=== PATIENT | female | born 1960 | race Caucasian/White ===

== ENCOUNTER 2020-06-05 17:43 | Inpatient (IN) | payer MEDICARE, OTHER ==
[~2020-06-05] VITALS: Ht 172.7 cm; Wt 122.5 kg
[~2020-06-05 17:43] MED LIST: LEVO25TA4 PO; METF500T16 PO
[2020-06-05] MEDS ORDERED: IV RINGERS,LACTATED 1000ML 1,000 ML IV ONE (18:15)
[2020-06-05] MEDS ORDERED: ONDANSETRON PF 4 MG/2 ML VIAL. IVP ONE (18:15)
[2020-06-05] MEDS ORDERED: HYDROmorphone 2 MG/ML VIAL IV ONE (18:15)
[2020-06-05 18:28] LABS: BASO % 1 % (0-3); EOS # 0.1 x10^3/uL (0.0-0.7); EOS % 5 % (0-3); HEMOGLOBIN 10.1 g/dL (12.0-15.5); LYMPH # 0.5 x10^3/uL (1.0-4.8); LYMPH % 26 % (24-48); MEAN CORPUSCULAR HEMOGLOBIN 23 pg (25-35); MEAN CORPUSCULAR HGB CONC 32 g/dL (31-37); MEAN CORPUSCULAR VOLUME 74 fL (79-100); MONO # 0.1 x10^3/uL (0.0-1.1); MONO % 7 % (0-9); NEUT # 1.2 x10^3/uL (1.8-7.7); NEUT % 61 % (31-73); PLATELET COUNT 46 x10^3/uL (140-400); RED BLOOD COUNT 4.34 x10^6/uL (3.50-5.40); RED CELL DISTRIBUTION WIDTH 19.5 % (11.5-14.5)
[2020-06-05 18:38] LABS: CALCIUM 8.5 mg/dL (8.5-10.1); CREATININE 1.2 mg/dL (0.6-1.0); GFR 45.8
[2020-06-05 18:43] LABS: ALBUMIN/GLOBULIN RATIO 0.5 (1.0-1.7); TOTAL BILIRUBIN 0.9 mg/dL (0.2-1.0)
[2020-06-05] MEDS ORDERED: IOHEXOL 300 MG/ML 100ML VIAL. IV ONE (19:00)
--- NOTE | 2020-06-05 19:12 | PHYS DOC ---
Past Medical History Past Medical History: Bipolar, Diabetes-Type II, Hypothyroid, Other Additional Past Medical Histor: MACDONALD; Chronic Anemia Past Surgical History: No Surgical History Additional Past Surgical Histo: TIPS Smoking Status: Never Smoker Alcohol Use: None General Adult EDM: Chief Complaint: VAGINAL PROBLEM HPI: HPI: The history was obtained from the patient. Patient is a 60-year-old female with PMH diabetes who presents with a chief complaint of groin discomfort. Patient states over the past 5 days she has had redness and swelling to her vulvar region. She stated 5 days ago she was seen in urgent care and prescribed nystatin powder and doxycycline for an infection. States the wound has not seemed to improve. He is unsure whether she has open wounds or drainage. She denies any vaginal discharge or bleeding. She denies any pain with bowel movement. She does note some burning sensation when she urinates. She states that she is a diabetic and uses metformin. She states her blood sugars are typically well controlled. She denies any fevers. She denies any syncope. Denies any trauma to the area. No other complaints. Review of Systems: Review of Systems: Constitutional: Denies fever or chills. [] Eyes: Denies change in visual acuity. [] HENT: Denies nasal congestion or sore throat. [] Respiratory: Denies cough or shortness of breath. [] Cardiovascular: Denies chest pain or edema. [] GI: Denies abdominal pain, nausea, vomiting, bloody stools or diarrhea. [] : Positive for dysuria and vulvar discomfort Musculoskeletal: Denies back pain or joint pain. [] Integument: Denies rash. [] Neurologic: Denies headache, focal weakness or sensory changes. [] Endocrine: Denies polyuria or polydipsia. [] Lymphatic: Denies swollen glands. [] Psychiatric: Denies depression or anxiety. [] Heart Score: Risk Factors: Risk Factors: DM, Current or recent (<one month) smoker, HTN, HLP, family history of CAD, obesity. Risk Scores: Score 0 - 3: 2.5% MACE over next 6 weeks - Discharge Home Score 4 - 6: 20.3% MACE over next 6 weeks - Admit for Clinical Observation Score 7 - 10: 72.7% MACE over next 6 weeks - Early Invasive Strategies Current Medications: Current Medications Medications (Trade) Dose Ordered Sig/Boyd Start Time Stop Time Status Last Admin Dose Admin Hydromorphone HCl (Dilaudid) 1 mg 1X ONCE 06/05/20 18:15 06/05/20 18:16 DC 06/05/20 18:26 1 MG Info (CONTRAST GIVEN -- Rx MONITORING) 1 each PRN DAILY PRN 06/05/20 19:15 06/07/20 19:14 Iohexol (Omnipaque 300 Mg/ml) 60 ml 1X ONCE 06/05/20 19:00 06/05/20 19:07 DC Ondansetron HCl (Zofran) 4 mg 1X ONCE 06/05/20 18:15 06/05/20 18:16 DC 06/05/20 18:25 4 MG Ringer's Solution 1,000 ml @ 2,000 mls/hr 1X ONCE 06/05/20 18:15 06/05/20 18:44 DC Allergies: Allergies: Allergies Coded Allergies Type Severity Reaction Last Updated Verified lorazepam Allergy Severe Rash 12/09/19 Yes risperidone Allergy Severe Unknown 12/09/19 Yes ziprasidone Allergy Severe Unknown 12/09/19 Yes chlorpromazine Allergy Intermediate Unknown 12/09/19 Yes morphine Allergy Intermediate Unknown 12/09/19 Yes Physical Exam: PE: Constitutional: Well developed, well nourished, no acute distress, non-toxic appearance. [] HENT: Normocephalic, atraumatic, bilateral external ears normal, oropharynx moist, no oral exudates, nose normal. [] Eyes: PERRLA, EOMI, conjunctiva normal, no discharge. [] Neck: Normal range of motion, no tenderness, supple, no stridor. [] Cardiovascular:Heart rate regular rhythm, no murmur [] Lungs & Thorax: Bilateral breath sounds clear to auscultation [] Abdomen: Soft, nontender, nonacute abdomen. No involuntary guarding or rigidity noted. No acute peritonitis. : Vulvar region with erythema and induration. Tender to palpation. Two 0.5 x 0.5 cm open wounds draining purulent material. Palpable fluctuance noted at the 4 o'clock position of the vulvar region. Not in the location of a Bartholin gland abscess however. Skin: Warm, dry, no erythema, no rash. [] Back: No tenderness, no CVA tenderness. [] Extremities: No tenderness, no cyanosis, no clubbing, ROM intact, no edema. [] Neurologic: Alert and oriented X 3, normal motor function, normal sensory function, no focal deficits noted. [] Psychologic: Affect normal, judgement normal, mood normal. [] Current Patient Data: Labs: Laboratory Tests Test 06/05/20 18:15 White Blood Count 2.0 x10^3/uL (4.0-11.0) L Red Blood Count 4.34 x10^6/uL (3.50-5.40) Hemoglobin 10.1 g/dL (12.0-15.5) L Hematocrit 32.0 % (36.0-47.0) L Mean Corpuscular Volume 74 fL (79-100) L Mean Corpuscular Hemoglobin 23 pg (25-35) L Mean Corpuscular Hemoglobin Concent 32 g/dL (31-37) Red Cell Distribution Width 19.5 % (11.5-14.5) H Platelet Count 46 x10^3/uL (140-400) L Neutrophils (%) (Auto) 61 % (31-73) Lymphocytes (%) (Auto) 26 % (24-48) Monocytes (%) (Auto) 7 % (0-9) Eosinophils (%) (Auto) 5 % (0-3) H Basophils (%) (Auto) 1 % (0-3) Neutrophils # (Auto) 1.2 x10^3/uL (1.8-7.7) L Lymphocytes # (Auto) 0.5 x10^3/uL (1.0-4.8) L Monocytes # (Auto) 0.1 x10^3/uL (0.0-1.1) Eosinophils # (Auto) 0.1 x10^3/uL (0.0-0.7) Basophils # (Auto) 0.0 x10^3/uL (0.0-0.2) Sodium Level 134 mmol/L (136-145) L Potassium Level 4.0 mmol/L (3.5-5.1) Chloride Level 102 mmol/L (98-107) Carbon Dioxide Level 27 mmol/L (21-32) Anion Gap 5 (6-14) L Blood Urea Nitrogen 15 mg/dL (7-20) Creatinine 1.2 mg/dL (0.6-1.0) H Estimated GFR (Cockcroft-Gault) 45.8 BUN/Creatinine Ratio 13 (6-20) Glucose Level 446 mg/dL (70-99) H Lactic Acid Level 2.3 mmol/L (0.4-2.0) H Calcium Level 8.5 mg/dL (8.5-10.1) Total Bilirubin 0.9 mg/dL (0.2-1.0) Aspartate Amino Transferase (AST) 25 U/L (15-37) Alanine Aminotransferase (ALT) 19 U/L (14-59) Alkaline Phosphatase 92 U/L (46-116) Total Protein 6.0 g/dL (6.4-8.2) L Albumin 2.0 g/dL (3.4-5.0) L Albumin/Globulin Ratio 0.5 (1.0-1.7) L Lipase 225 U/L (73-393) Laboratory Tests 06/05/20 18:15 Laboratory Tests 06/05/20 18:15 Vital Signs: Vital Signs Date Time Temp Pulse Resp B/P (MAP) Pulse Ox O2 Delivery O2 Flow Rate FiO2 06/05/20 19:00 12 70 Room Air 06/05/20 19:00 2.0 06/05/20 18:00 98.1 96 165/78 (107) 98.1 EKG: EKG: [] Radiology/Procedures: Radiology/Procedures: [facility] [address] [place] [address] IMAGING REPORT Signed PATIENT: JOO BOYER ACCOUNT: [id number] : 1960 LOCATION: ER AGE: 60 SEX: F EXAM STATUS: REG ER ORD. PHYSICIAN: NINO CROSS DO REASON: eval for perineal abscess vs. deep space infection. PROCEDURE: CT ABD PELV W/ IV CONTRST ONLY Exam: CT of abdomen and pelvis with contrast INDICATION: Evaluate for perineal abscess, deep space infection TECHNIQUE: Sequential axial images through the abdomen and pelvis obtained following the administration of 75 mL of Omni 300 IV contrast. Sagittal and coronal reformatted images were reconstructed from the axial data and reviewed. Comparisons: None FINDINGS: Heart size is normal. No pericardial effusion. Visualized lung bases are clear. No pleural effusion. Liver demonstrates postsurgical changes of TIPS procedure TIPS shunt is patent. Cirrhotic nodular morphology of the liver is noted. Spleen is enlarged. Pancreas gallbladder and adrenals are unremarkable. No perinephric inflammation or hydronephrosis. No renal or ureteral calculi are identified. Bladder is distended and appears thin-walled. Uterus is not enlarged. No abnormal adnexal mass. Large and small bowel are unremarkable. Appendix is nonidentified. No free intra-abdominal air or fluid. Abdominal aorta has a normal course and caliber. Partially calcified thrombus is noted in the splenic vein which is nonocclusive. No enlarged abdominal lymph nodes are identified. There is a small amount of air noted within the medial upper left thigh extending into the perineum with adjacent inflammatory changes. No focal fluid collection is identified. IMPRESSION: 1. Air and inflammatory changes seen in the left medial upper thigh. No focal fluid collection is identified. 2. Cirrhotic morphology of liver with TIPS changes. 3. Nonocclusive chronic appearing thrombus in the splenic vein. Exposure: One or more of the following in the visualized dose reduction techniques were utilized for this examination: 1. Automated exposure control 2. Adjustment of the MA and/or KV according to patient size 3. Use of iterative of reconstructive technique Electronically signed by: Hannah Molina MD (06/05/2020 7:42 PM) [id number] DICTATED and SIGNED BY: HANNAH MOLINA MD DATE: 06/05/201941 [] Course & Med Decision Making: Course & Med Decision Making Pertinent Labs and Imaging studies reviewed. (See chart for details) Patient is a 60-year-old female who presents with chief complaint of groin pain and rash. Rash appears consistent with cellulitis. She does have 2 small open draining wounds. CT abdomen pelvis does not reveal any signs of necrotizing fasciitis or drainable fluid collection. She was started on broad-spectrum antibiotics including vancomycin and Zosyn given she is failed outpatient treatment. Fluid resuscitation initiated. Pain well controlled. Patient's labs do reveal pancytopenia however this does appear consistent with her baseline. Patient will require hospitalization for further antibiotic treatment of her cellulitis. Dragon Disclaimer: Dragon Disclaimer: This electronic medical record was generated, in whole or in part, using a voice recognition dictation system. Departure Departure Impression: Primary Impression: Cellulitis, perineum Additional Impressions: Pancytopenia MACDONALD (nonalcoholic steatohepatitis) Disposition: 09 ADMITTED INPATIENT Condition: STABLE Referrals: NO PCP (PCP) Justicifation of Admission Dx: Justifications for Admission: Justification of Admission Dx: Yes Cellulitis: Cellulitis Attending Signature Attending Signature NINO CROSS DO Jun 05, 2020 19:12
[2020-06-05] MEDS ORDERED: CONTRAST GIVEN. MC PRN (19:15)
--- NOTE | 2020-06-05 19:45 | RAD ---
Exam: CT of abdomen and pelvis with contrast INDICATION: Evaluate for perineal abscess, deep space infection TECHNIQUE: Sequential axial images through the abdomen and pelvis obtained following the administration of 75 mL of Omni 300 IV contrast. Sagittal and coronal reformatted images were reconstructed from the axial data and reviewed. Comparisons: None FINDINGS: Heart size is normal. No pericardial effusion. Visualized lung bases are clear. No pleural effusion. Liver demonstrates postsurgical changes of TIPS procedure TIPS shunt is patent. Cirrhotic nodular morphology of the liver is noted. Spleen is enlarged. Pancreas gallbladder and adrenals are unremarkable. No perinephric inflammation or hydronephrosis. No renal or ureteral calculi are identified. Bladder is distended and appears thin-walled. Uterus is not enlarged. No abnormal adnexal mass. Large and small bowel are unremarkable. Appendix is nonidentified. No free intra-abdominal air or fluid. Abdominal aorta has a normal course and caliber. Partially calcified thrombus is noted in the splenic vein which is nonocclusive. No enlarged abdominal lymph nodes are identified. There is a small amount of air noted within the medial upper left thigh extending into the perineum with adjacent inflammatory changes. No focal fluid collection is identified. IMPRESSION: 1. Air and inflammatory changes seen in the left medial upper thigh. No focal fluid collection is identified. 2. Cirrhotic morphology of liver with TIPS changes. 3. Nonocclusive chronic appearing thrombus in the splenic vein. Exposure: One or more of the following in the visualized dose reduction techniques were utilized for this examination: 1. Automated exposure control 2. Adjustment of the MA and/or KV according to patient size 3. Use of iterative of reconstructive technique Electronically signed by: Hannah Winchester MD (06/05/2020 7:42 PM) [id number]
[2020-06-05 19:51] LABS: BILIRUBIN,URINE NEGATIVE (NEG); CLARITY,URINE CLEAR; COLOR,URINE YELLOW; NITRITE,URINE NEGATIVE (NEG); PH,URINE 6.5 (<5.0-8.0); PROTEIN,URINE 100 mg/dL (NEG-TRACE)
[2020-06-05] MEDS ORDERED: PIPERACILLIN/TAZOBACTAM 3.375 GM in IV NORMAL SALINE 50ML 50 ML IV ONE (20:00)
[2020-06-05 20:03] LABS: BACTERIA,URINE FEW /HPF (0-FEW); SQUAMOUS EPITHELIAL CELL,UR OCC /LPF
[2020-06-05] MEDS ORDERED: VANCOMYCIN 2 GM in IV NORMAL SALINE 500ML BAG 500 ML IV ONE (20:30)
[2020-06-05] MEDS ORDERED: ONDANSETRON PF 4 MG/2 ML VIAL. IV PRN (20:30)
[2020-06-05] MEDS ORDERED: IV NORMAL SALINE 1000ML BAG 1,000 ML IV ONE (20:30)
[2020-06-05] MEDS: MORPHINE SULFATE 4 MG/ML VIAL. IV PRN (22:31)
[2020-06-05 22:45] VITALS: BP 159/79
[2020-06-06] MEDS: IV NORMAL SALINE 1000ML BAG 1,000 ML IV SCH ×2 (00:59→15:03)
[2020-06-06] MEDS ORDERED: DEXTROSE 50% 25 GM / 50ML DISP.SYRIN. IV PRN ×2 (01:00→13:30)
[2020-06-06] MEDS ORDERED: INSULIN LISPRO 300 UNITS/3 ML VIAL. SQ ONE (01:30)
[2020-06-06 02:16] VITALS: BP 124/59
[2020-06-06] MEDS: MORPHINE SULFATE 4 MG/ML VIAL. IV PRN ×4 (04:54→19:59)
[2020-06-06 05:14] VITALS: BP 157/90
[2020-06-06] MEDS: INSULIN LISPRO 300 UNITS/3 ML VIAL. SQ SCH ×3 (08:24→16:56)
[2020-06-06 09:00] VITALS: BP 133/68
[2020-06-06 10:25] LABS: BASO % 1 % (0-3); EOS # 0.1 x10^3/uL (0.0-0.7); EOS % 9 % (0-3); HEMATOCRIT 30.6 % (36.0-47.0); HEMOGLOBIN 9.5 g/dL (12.0-15.5); LYMPH # 0.4 x10^3/uL (1.0-4.8); LYMPH % 27 % (24-48); MEAN CORPUSCULAR HEMOGLOBIN 23 pg (25-35); MEAN CORPUSCULAR HGB CONC 31 g/dL (31-37); MEAN CORPUSCULAR VOLUME 75 fL (79-100); MONO # 0.1 x10^3/uL (0.0-1.1); MONO % 7 % (0-9); NEUT # 0.8 x10^3/uL (1.8-7.7); NEUT % 56 % (31-73); PLATELET COUNT 34 x10^3/uL (140-400); RED BLOOD COUNT 4.11 x10^6/uL (3.50-5.40); RED CELL DISTRIBUTION WIDTH 19.5 % (11.5-14.5)
[2020-06-06 10:30] LABS: WHITE BLOOD COUNT 1.4 x10^3/uL (4.0-11.0)
[2020-06-06 10:38] LABS: CALCIUM 7.9 mg/dL (8.5-10.1); CREATININE 1.1 mg/dL (0.6-1.0); GFR 50.7; POTASSIUM 4.3 mmol/L (3.5-5.1)
[2020-06-06 11:07] LABS: % BANDS 1 % (0-9); % BASOS 1 % (0-3); % EOS 9 % (0-5); % LYMPHS 30 % (24-48); % MONOS 6 % (0-10); % SEGS 53 % (35-66); PLT ESTIMATE DECREASED (ADEQUATE)
[2020-06-06 11:08] LABS: HYPOCHROMIA PRESENT; MICROCYTOSIS PRESENT
[2020-06-06] MEDS ORDERED: LACT20SO PO (11:27)
[2020-06-06] MEDS ORDERED: POLY119P19 PO (11:28)
[2020-06-06] MEDS ORDERED: MIDO10TA PO (11:29)
[2020-06-06] MEDS ORDERED: PANT40TA77 PO (11:29)
[2020-06-06] MEDS ORDERED: TOPI100T8 PO (11:30)
[2020-06-06] MEDS ORDERED: RIFA550T4 PO (11:34)
[2020-06-06] MEDS ORDERED: BUPR100T8 PO (11:34)
[2020-06-06] MEDS ORDERED: LIRA0.6P2 SQ (11:34)
[2020-06-06] MEDS ORDERED: OMEG1CAP50 PO (11:35)
[2020-06-06] MEDS ORDERED: TRAZ-118 PO (11:36)
--- NOTE | 2020-06-06 11:40 | PDOC1 ---
History and Physical Date of Admission Date of Admission DATE: 06/06/20 TIME: 11:40 Identification/Chief Complaint Chief Complaint seen in er with rash, neutropenia , 60-year-old female with PMH diabetes who presents with a chief complaint of groin discomfort. Patient states over the past 5 days she has had redness and swelling to her vulvar region. She stated 5 days ago she was seen in urgent care and prescribed nystatin powder and doxycycline for an infection. States the wound has not seemed to improve. He is unsure whether she has open wounds or drainage. She denies any vaginal discharge or bleeding. // denies any pain with bowel movement. She does note some burning sensation when she urinates. // is a diabetic and uses metformin. She states her blood sugars are typically well controlled. She denies any fevers. Rash appears consistent with cellulitis. Past Medical History Past Medical History Past Medical History Past Medical History: Bipolar, Diabetes-Type II, Hypothyroid, Other Additional Past Medical Histor: MACDONALD; Chronic Anemia Past Surgical History: No Surgical History Additional Past Surgical Histo: TIPS Smoking Status: Never Smoker Alcohol Use: None FHX OBESITY Hepatobiliary: Other Psych: Bipolar Endocrine: Diabetes, Hypothyroidism Past Surgical History Past Surgical History: Other Family History Family History: High Cholestrol, Hypertension Social History Smoke: No ALCOHOL: none Drugs: None Current Problem List Problem List Problems Medical Problems: (1) Cellulitis, perineum Status: Acute (2) MACDONALD (nonalcoholic steatohepatitis) Status: Acute Current Medications Current Medications Current Medications Ringer's Solution 1,000 ml @ 2,000 mls/hr 1X ONCE IV Last administered on 06/05/20at 19:00; Start 06/05/20 at 18:15; Stop 06/05/20 at 18:44; Status DC Hydromorphone HCl (Dilaudid) 1 mg 1X ONCE IV Last administered on 06/05/20at 18:26; Start 06/05/20 at 18:15; Stop 06/05/20 at 18:16; Status DC Ondansetron HCl (Zofran) 4 mg 1X ONCE IVP Last administered on 06/05/20at 18:25; Start 06/05/20 at 18:15; Stop 06/05/20 at 18:16; Status DC Iohexol (Omnipaque 300 Mg/ml) 60 ml 1X ONCE IV Last administered on 06/05/20at 19:15; Start 06/05/20 at 19:00; Stop 06/05/20 at 19:07; Status DC Info (CONTRAST GIVEN -- Rx MONITORING) 1 each PRN DAILY PRN MC SEE COMMENTS; Start 06/05/20 at 19:15; Stop 06/07/20 at 19:14 Vancomycin HCl 2 gm/Sodium Chloride 500 ml @ 250 mls/hr 1X ONCE IV Last administered on 06/05/20at 20:53; Start 06/05/20 at 20:30; Stop 06/05/20 at 22:29; Status DC Piperacillin Sod/ Tazobactam Sod 3.375 gm/Sodium Chloride 50 ml @ 100 mls/hr 1X ONCE IV Last administered on 06/05/20at 20:16; Start 06/05/20 at 20:00; Stop 06/05/20 at 20:29; Status DC Ondansetron HCl (Zofran) 4 mg PRN Q8HRS PRN IV NAUSEA/VOMITING; Start 06/05/20 at 20:30; Stop 06/06/20 at 20:29 Morphine Sulfate (Morphine Sulfate) 4 mg PRN Q2HR PRN IV PAIN Last administered on 06/06/20at 09:02; Start 06/05/20 at 20:30; Stop 06/06/20 at 20:29 Sodium Chloride 1,000 ml @ 1,500 mls/hr 1X ONCE IV Last administered on 06/05/20at 20:52; Start 06/05/20 at 20:30; Stop 06/05/20 at 21:09; Status DC Insulin Human Lispro (HumaLOG) 0-7 UNITS TIDWMEALS SQ Last administered on 06/06/20at 08:24; Start 06/06/20 at 08:00 Dextrose (Dextrose 50%-Water Syringe) 12.5 gm PRN Q15MIN PRN IV SEE COMMENTS; Start 06/06/20 at 01:00 Sodium Chloride 1,000 ml @ 70 mls/hr [id number] IV Last administered on 06/06/20at 00:59; Start 06/06/20 at 01:00 Insulin Human Lispro (HumaLOG) 4 units 1X ONCE SQ Last administered on 06/06/20at 01:49; Start 06/06/20 at 01:30; Stop 06/06/20 at 01:31; Status DC Acetaminophen/ Hydrocodone Bitart (Lortab 5/325) 1 tab PRN Q4HRS PRN PO PAIN; Start 06/06/20 at 11:00 Active Scripts Active Reported Trazodone Hcl 50 Mg Tablet 50 Mg PO DAILY Fish Oil 1,000 Mg Softgel ([place]-3 Fatty Acids/Fish Oil) 1 Each Capsule 1 Cap PO DAILY 30 Days Victoza 3-Perez (Liraglutide) 0.6 Mg/0.1 Ml Pen.injctr 1.2 Mg SQ DAILY Bupropion Hcl Sr (Bupropion Hcl) 100 Mg Tablet.er 100 Mg PO DAILY Xifaxan (Rifaximin) 550 Mg Tablet 1 Tab PO BID 10 Days Topiramate 100 Mg Tablet 100 Mg PO DAILY Pantoprazole Sodium (Pantoprazole Sodium) 40 Mg Tablet.dr 40 Mg PO BIDAC Midodrine Hcl 10 Mg Tablet 10 Mg PO TID Glycolax (Polyethylene Glycol 3350) 119 Gm Powder 17 Gm PO TID Take according to instructions on printed sheet Lactulose 20 Gm/30 Ml Solution 20 Gm PO TID Levothyroxine Sodium Unknown Strength Tablet 0.5 PO DAILY Metformin Hcl Unknown Strength Tablet 500 PO BIDWMEALS Allergies Allergies: Coded Allergies: lorazepam (Verified Allergy, Severe, Rash, 12/09/19) risperidone (Verified Allergy, Severe, Unknown, 12/09/19) Patient's card reads "Asymptomatic reaction" ziprasidone (Verified Allergy, Severe, Unknown, 12/09/19) Patient's card reads "Asymptomatic reaction" chlorpromazine (Verified Allergy, Intermediate, Unknown, 12/09/19) Patient's card reads "Asymptomatic reaction" morphine (Verified Allergy, Intermediate, Unknown, 12/09/19) Patient's card reads -"May have BiPolar Symptoms if taken for a ling time." ROS Review of System Constitutional: Denies fever or chills. [] Eyes: Denies change in visual acuity. [] HENT: Denies nasal congestion or sore throat. [] Respiratory: Denies cough or shortness of breath. [] Cardiovascular: Denies chest pain or edema. [] GI: Denies abdominal pain, nausea, vomiting, bloody stools or diarrhea. [] : Positive for dysuria and vulvar discomfort Musculoskeletal: Denies back pain or joint pain. [] Integument: Denies rash. [] Neurologic: Denies headache, focal weakness or sensory changes. [] Endocrine: Denies polyuria or polydipsia. [] Lymphatic: Denies swollen glands. [] Psychiatric: Denies depression or anxiety. [] 14 pt ros otherwise neg General: YES: Fatigue Physical Exam Physical Exam Constitutional: Well developed, well nourished, no acute distress, non-toxic appearance. [] HENT: Normocephalic, atraumatic, bilateral external ears normal, oropharynx moist, no oral exudates, nose normal. [] Eyes: PERRLA, EOMI, conjunctiva normal, no discharge. [] Neck: Normal range of motion, no tenderness, supple, no stridor. [] Cardiovascular:Heart rate regular rhythm, no murmur [] Lungs & Thorax: Bilateral breath sounds clear to auscultation [] Abdomen: Soft, nontender, nonacute abdomen. No involuntary guarding or rigidity noted. No acute peritonitis. : Vulvar region with erythema and induration. Tender to palpation. Two 0.5 x 0.5 cm open wounds draining purulent material. Palpable fluctuance noted at the 4 o'clock position of the vulvar region. Not in the location of a Bartholin gland abscess however. by ER PA Skin: Warm, dry, no erythema, no rash. [] Back: No tenderness, no CVA tenderness. [] Extremities: No tenderness, no cyanosis, no clubbing, ROM intact, no edema. [] Neurologic: Alert and oriented X 3, normal motor function, normal sensory function, no focal deficits noted. [] Psychologic: Affect normal, judgment normal, mood normal. [] General: Alert, Oriented X3, Cooperative HEENT: Atraumatic, EOMI, Mucous membr. moist/pink Lungs: Normal air movement Heart: RRR Breasts: Not examined Abdomen: Soft Rectal Exam: not examined Extremities: No cyanosis Neuro: Normal speech, Cranial nerves 3-12 NL Psych/Mental Status: Mental status NL, Mood NL Vitals Vitals Vital Signs Date Time Temp Pulse Resp B/P (MAP) Pulse Ox O2 Delivery O2 Flow Rate FiO2 06/06/20 09:02 2 Room Air 06/06/20 09:00 2.0 06/06/20 09:00 97.8 84 133/68 (89) 88 97.8 Labs Labs Laboratory Tests Test 06/05/20 18:15 06/05/20 19:39 06/05/20 21:45 06/06/20 01:04 White Blood Count 2.0 x10^3/uL (4.0-11.0) Red Blood Count 4.34 x10^6/uL (3.50-5.40) Hemoglobin 10.1 g/dL (12.0-15.5) Hematocrit 32.0 % (36.0-47.0) Mean Corpuscular Volume 74 fL (79-100) Mean Corpuscular Hemoglobin 23 pg (25-35) Mean Corpuscular Hemoglobin Concent 32 g/dL (31-37) Red Cell Distribution Width 19.5 % (11.5-14.5) Platelet Count 46 x10^3/uL (140-400) Neutrophils (%) (Auto) 61 % (31-73) Lymphocytes (%) (Auto) 26 % (24-48) Monocytes (%) (Auto) 7 % (0-9) Eosinophils (%) (Auto) 5 % (0-3) Basophils (%) (Auto) 1 % (0-3) Neutrophils # (Auto) 1.2 x10^3/uL (1.8-7.7) Lymphocytes # (Auto) 0.5 x10^3/uL (1.0-4.8) Monocytes # (Auto) 0.1 x10^3/uL (0.0-1.1) Eosinophils # (Auto) 0.1 x10^3/uL (0.0-0.7) Basophils # (Auto) 0.0 x10^3/uL (0.0-0.2) Sodium Level 134 mmol/L (136-145) Potassium Level 4.0 mmol/L (3.5-5.1) Chloride Level 102 mmol/L (98-107) Carbon Dioxide Level 27 mmol/L (21-32) Anion Gap 5 (6-14) Blood Urea Nitrogen 15 mg/dL (7-20) Creatinine 1.2 mg/dL (0.6-1.0) Estimated GFR (Cockcroft-Gault) 45.8 BUN/Creatinine Ratio 13 (6-20) Glucose Level 446 mg/dL (70-99) Lactic Acid Level 2.3 mmol/L (0.4-2.0) 1.3 mmol/L (0.4-2.0) Calcium Level 8.5 mg/dL (8.5-10.1) Total Bilirubin 0.9 mg/dL (0.2-1.0) Aspartate Amino Transf (AST/SGOT) 25 U/L (15-37) Alanine Aminotransferase (ALT/SGPT) 19 U/L (14-59) Alkaline Phosphatase 92 U/L (46-116) Total Protein 6.0 g/dL (6.4-8.2) Albumin 2.0 g/dL (3.4-5.0) Albumin/Globulin Ratio 0.5 (1.0-1.7) Lipase 225 U/L (73-393) Urine Collection Type Unknown Urine Color Yellow Urine Clarity Clear Urine pH 6.5 (<5.0-8.0) Urine Specific [place] >=1.030 (1.000-1.030) Urine Protein 100 mg/dL (NEG-TRACE) Urine Glucose (UA) >=1000 mg/dL (NEG) Urine Ketones (Stick) Negative mg/dL (NEG) Urine Blood Moderate (NEG) Urine Nitrite Negative (NEG) Urine Bilirubin Negative (NEG) Urine Urobilinogen Dipstick 1.0 mg/dL (0.2 mg/dL) Urine Leukocyte Esterase Negative (NEG) Urine RBC 6-10 /HPF (0-2) Urine WBC 1-4 /HPF (0-4) Urine Squamous Epithelial Cells Occ /LPF Urine Bacteria Few /HPF (0-FEW) Glucose (Fingerstick) 393 mg/dL (70-99) Test 06/06/20 08:11 06/06/20 09:25 Glucose (Fingerstick) 286 mg/dL (70-99) White Blood Count 1.4 x10^3/uL (4.0-11.0) Red Blood Count 4.11 x10^6/uL (3.50-5.40) Hemoglobin 9.5 g/dL (12.0-15.5) Hematocrit 30.6 % (36.0-47.0) Mean Corpuscular Volume 75 fL (79-100) Mean Corpuscular Hemoglobin 23 pg (25-35) Mean Corpuscular Hemoglobin Concent 31 g/dL (31-37) Red Cell Distribution Width 19.5 % (11.5-14.5) Platelet Count 34 x10^3/uL (140-400) Neutrophils (%) (Auto) 56 % (31-73) Lymphocytes (%) (Auto) 27 % (24-48) Monocytes (%) (Auto) 7 % (0-9) Eosinophils (%) (Auto) 9 % (0-3) Basophils (%) (Auto) 1 % (0-3) Neutrophils # (Auto) 0.8 x10^3/uL (1.8-7.7) Lymphocytes # (Auto) 0.4 x10^3/uL (1.0-4.8) Monocytes # (Auto) 0.1 x10^3/uL (0.0-1.1) Eosinophils # (Auto) 0.1 x10^3/uL (0.0-0.7) Basophils # (Auto) 0.0 x10^3/uL (0.0-0.2) Segmented Neutrophils % 53 % (35-66) Band Neutrophils % 1 % (0-9) Lymphocytes % 30 % (24-48) Monocytes % 6 % (0-10) Eosinophils % 9 % (0-5) Basophils % 1 % (0-3) Platelet Estimate Decreased (ADEQUATE) Hypochromasia Present Microcytosis Present Sodium Level 136 mmol/L (136-145) Potassium Level 4.3 mmol/L (3.5-5.1) Chloride Level 105 mmol/L (98-107) Carbon Dioxide Level 26 mmol/L (21-32) Anion Gap 5 (6-14) Blood Urea Nitrogen 12 mg/dL (7-20) Creatinine 1.1 mg/dL (0.6-1.0) Estimated GFR (Cockcroft-Gault) 50.7 Glucose Level 364 mg/dL (70-99) Calcium Level 7.9 mg/dL (8.5-10.1) Laboratory Tests Test 06/05/20 18:15 06/05/20 19:39 06/05/20 21:45 06/06/20 01:04 White Blood Count 2.0 x10^3/uL (4.0-11.0) Red Blood Count 4.34 x10^6/uL (3.50-5.40) Hemoglobin 10.1 g/dL (12.0-15.5) Hematocrit 32.0 % (36.0-47.0) Mean Corpuscular Volume 74 fL (79-100) Mean Corpuscular Hemoglobin 23 pg (25-35) Mean Corpuscular Hemoglobin Concent 32 g/dL (31-37) Red Cell Distribution Width 19.5 % (11.5-14.5) Platelet Count 46 x10^3/uL (140-400) Neutrophils (%) (Auto) 61 % (31-73) Lymphocytes (%) (Auto) 26 % (24-48) Monocytes (%) (Auto) 7 % (0-9) Eosinophils (%) (Auto) 5 % (0-3) Basophils (%) (Auto) 1 % (0-3) Neutrophils # (Auto) 1.2 x10^3/uL (1.8-7.7) Lymphocytes # (Auto) 0.5 x10^3/uL (1.0-4.8) Monocytes # (Auto) 0.1 x10^3/uL (0.0-1.1) Eosinophils # (Auto) 0.1 x10^3/uL (0.0-0.7) Basophils # (Auto) 0.0 x10^3/uL (0.0-0.2) Sodium Level 134 mmol/L (136-145) Potassium Level 4.0 mmol/L (3.5-5.1) Chloride Level 102 mmol/L (98-107) Carbon Dioxide Level 27 mmol/L (21-32) Anion Gap 5 (6-14) Blood Urea Nitrogen 15 mg/dL (7-20) Creatinine 1.2 mg/dL (0.6-1.0) Estimated GFR (Cockcroft-Gault) 45.8 BUN/Creatinine Ratio 13 (6-20) Glucose Level 446 mg/dL (70-99) Lactic Acid Level 2.3 mmol/L (0.4-2.0) 1.3 mmol/L (0.4-2.0) Calcium Level 8.5 mg/dL (8.5-10.1) Total Bilirubin 0.9 mg/dL (0.2-1.0) Aspartate Amino Transf (AST/SGOT) 25 U/L (15-37) Alanine Aminotransferase (ALT/SGPT) 19 U/L (14-59) Alkaline Phosphatase 92 U/L (46-116) Total Protein 6.0 g/dL (6.4-8.2) Albumin 2.0 g/dL (3.4-5.0) Albumin/Globulin Ratio 0.5 (1.0-1.7) Lipase 225 U/L (73-393) Urine Collection Type Unknown Urine Color Yellow Urine Clarity Clear Urine pH 6.5 (<5.0-8.0) Urine Specific [place] >=1.030 (1.000-1.030) Urine Protein 100 mg/dL (NEG-TRACE) Urine Glucose (UA) >=1000 mg/dL (NEG) Urine Ketones (Stick) Negative mg/dL (NEG) Urine Blood Moderate (NEG) Urine Nitrite Negative (NEG) Urine Bilirubin Negative (NEG) Urine Urobilinogen Dipstick 1.0 mg/dL (0.2 mg/dL) Urine Leukocyte Esterase Negative (NEG) Urine RBC 6-10 /HPF (0-2) Urine WBC 1-4 /HPF (0-4) Urine Squamous Epithelial Cells Occ /LPF Urine Bacteria Few /HPF (0-FEW) Glucose (Fingerstick) 393 mg/dL (70-99) Test 06/06/20 08:11 06/06/20 09:25 Glucose (Fingerstick) 286 mg/dL (70-99) White Blood Count 1.4 x10^3/uL (4.0-11.0) Red Blood Count 4.11 x10^6/uL (3.50-5.40) Hemoglobin 9.5 g/dL (12.0-15.5) Hematocrit 30.6 % (36.0-47.0) Mean Corpuscular Volume 75 fL (79-100) Mean Corpuscular Hemoglobin 23 pg (25-35) Mean Corpuscular Hemoglobin Concent 31 g/dL (31-37) Red Cell Distribution Width 19.5 % (11.5-14.5) Platelet Count 34 x10^3/uL (140-400) Neutrophils (%) (Auto) 56 % (31-73) Lymphocytes (%) (Auto) 27 % (24-48) Monocytes (%) (Auto) 7 % (0-9) Eosinophils (%) (Auto) 9 % (0-3) Basophils (%) (Auto) 1 % (0-3) Neutrophils # (Auto) 0.8 x10^3/uL (1.8-7.7) Lymphocytes # (Auto) 0.4 x10^3/uL (1.0-4.8) Monocytes # (Auto) 0.1 x10^3/uL (0.0-1.1) Eosinophils # (Auto) 0.1 x10^3/uL (0.0-0.7) Basophils # (Auto) 0.0 x10^3/uL (0.0-0.2) Segmented Neutrophils % 53 % (35-66) Band Neutrophils % 1 % (0-9) Lymphocytes % 30 % (24-48) Monocytes % 6 % (0-10) Eosinophils % 9 % (0-5) Basophils % 1 % (0-3) Platelet Estimate Decreased (ADEQUATE) Hypochromasia Present Microcytosis Present Sodium Level 136 mmol/L (136-145) Potassium Level 4.3 mmol/L (3.5-5.1) Chloride Level 105 mmol/L (98-107) Carbon Dioxide Level 26 mmol/L (21-32) Anion Gap 5 (6-14) Blood Urea Nitrogen 12 mg/dL (7-20) Creatinine 1.1 mg/dL (0.6-1.0) Estimated GFR (Cockcroft-Gault) 50.7 Glucose Level 364 mg/dL (70-99) Calcium Level 7.9 mg/dL (8.5-10.1) Images Images Exam: CT of abdomen and pelvis with contrast INDICATION: Evaluate for perineal abscess, deep space infection TECHNIQUE: Sequential axial images through the abdomen and pelvis obtained following the administration of 75 mL of Omni 300 IV contrast. Sagittal and coronal reformatted images were reconstructed from the axial data and reviewed. Comparisons: None FINDINGS: Heart size is normal. No pericardial effusion. Visualized lung bases are clear. No pleural effusion. Liver demonstrates postsurgical changes of TIPS procedure TIPS shunt is patent. Cirrhotic nodular morphology of the liver is noted. Spleen is enlarged. Pancreas gallbladder and adrenals are unremarkable. No perinephric inflammation or hydronephrosis. No renal or ureteral calculi are identified. Bladder is distended and appears thin-walled. Uterus is not enlarged. No abnormal adnexal mass. Large and small bowel are unremarkable. Appendix is nonidentified. No free intra-abdominal air or fluid. Abdominal aorta has a normal course and caliber. Partially calcified thrombus is noted in the splenic vein which is nonocclusive. No enlarged abdominal lymph nodes are identified. There is a small amount of air noted within the medial upper left thigh extending into the perineum with adjacent inflammatory changes. No focal fluid collection is identified. IMPRESSION: 1. Air and inflammatory changes seen in the left medial upper thigh. No focal fluid collection is identified. 2. Cirrhotic morphology of liver with TIPS changes. 3. Nonocclusive chronic appearing thrombus in the splenic vein. VTE Prophylaxis Ordered VTE Prophylaxis Devices: No VTE Pharmacological Prophylaxi: Contraindicated Assessment/Plan Assessment/Plan IMPRESSION: 1. Air and inflammatory changes seen in the left medial upper thigh. No focal fluid collection is identified.Rash appears consistent with cellulitis. 2. Cirrhotic morphology of liver with TIPS changes. 3. Nonocclusive chronic appearing thrombus in the splenic vein. 4. morbid obesity 5. pancytopenia, neutropenia, thrombocytopenia 6. MACDONALD 7. DIABETES 8. bipolar disorder plan admit consult hematology neutropenic diet reverse contact isolation ID consult retic count FE PANEL SCD'S , NO LOVENOX GI CONSULT SS INSULIN iv zosyn, vanc hold meds which may be cytotoxic, supress bone marrow, such as metformin move to telemetry or cvc D/W RN Metformin is a widely prescribed biguanide antidiabetic drug that has been implicated as a cause of hemolytic anemia in three previous case reports. We report a case of rapidly fatal hemolysis that was temporally associated with the initiation of metformin treatment for diabetes. Clinicians need to be aware of this rare but potentially serious side effect of metformin. Case presentation A 56-year-old man with type 2 diabetes mellitus was started on metformin to improve glycemic control. Shortly afterwards, he developed progressive fatigue, exertional dyspnea, cranberry-colored urine and jaundice. Laboratory studies showed severe hemolysis, with a drop in hemoglobin from 14.7 to 6.6 g/dl over 4 days, markedly elevated lactate dehydrogenase, bilirubin and reticulocyte counts, and a low haptoglobin level. A peripheral blood smear showed no schistocytes, and a direct Maryanne test was positive for anti-IgG and negative for anti-C3. Despite corticosteroid treatment and transfusion of packed red blood cells, the patient developed increasing dyspnea, hypotension, further decline in hemoglobin to 3.3 g/dl, and fatal cardiorespiratory arrest 12 hours after admission. Justifications for Admission Other Justification RAJ VILLARREAL MD Jun 06, 2020 11:40
[2020-06-06] MEDS: HYDROcodone/APAP 5/325MG 1 TAB TABLET PO PRN ×2 (12:26→16:53)
[2020-06-06 12:29] LABS: URIC ACID 3.4 mg/dL (2.6-6.0)
[2020-06-06] MEDS ORDERED: PIP/TAZO PER PHARMACY MC PRN (12:45)
[2020-06-06] MEDS: VANCOMYCIN PER PHARMACY MC PRN (12:50)
--- NOTE | 2020-06-06 12:53 | NUR ---
Pharmacy Vancomycin Dosing Note S:Consulted to monitor and dose vancomycin started 06/05/20. O:JOO BOYER is a 60 year old F with Cellulitis . Height: 5 feet, 8 inches Weight: 118.0 kg [place] Body Weight: 63.90 Adjusted Body Weight: 85.54 Dosing Weight: Actual Other Antibiotics: ZOSYN LABS: Last BUN: 12 Last Creatinine: 1.1 Creatinine Clearance: 70 mL/min Last WBC: 1.4 Last Procalcitonin: Tmax (past 24 hours): 98.1 Microbiology: - I/O: 2880/2 VOIDS Last dose given 06/06/20 at 2054 Vancomycin Dosing: Loading Dose: 2000 mg x1 Dosing Weight: Actual Target Trough: 10-20 A: Based on: weight and renal function P: 1. Begin Vancomycin 1750 mg IV q18h 2. Follow up Trough level on 06/07/20 at 0830 3. Pharmacy will continue to monitor, follow and adjust therapy as needed. Dagmar Hernández Bethanie, 06/06/20 [id number]
[2020-06-06] MEDS: MIDODRINE 5 MG TABLET PO SCH ×2 (14:30→18:00)
[2020-06-06 15:00] VITALS: BP 126/65
[2020-06-06] MEDS: LACTULOSE 20 GM/30 ML SOLUTION. PO SCH ×2 (15:01→19:58)
[2020-06-06] MEDS: rifAXIMin 550 MG TABLET PO SCH ×2 (15:01→19:58)
[2020-06-06] MEDS: LEVOTHYROXINE 50 MCG TABLET PO SCH (15:02)
[2020-06-06] MEDS: PIPERACILLIN/TAZOBACTAM 3.375 GM in IV NORMAL SALINE 50ML 50 ML IV SCH ×2 (15:02→18:40)
--- NOTE | 2020-06-06 15:33 | RAD ---
EXAM: CHEST 1 VIEW History: Hypoxia COMPARISON: 12/09/2019 TECHNIQUE: Single portable radiograph of the chest FINDINGS: The cardiac silhouette is unremarkable. The lungs are clear bilaterally. The costophrenic sulci are clear and well demarcated. IMPRESSION: No radiographic evidence of an acute cardiopulmonary process. Electronically signed by: Richy Rubi MD (06/06/2020 3:29 PM) [id number]
[2020-06-06] MEDS: VANCOMYCIN 1.75 GM in IV NORMAL SALINE 500ML BAG 500 ML IV SCH (16:13)
[2020-06-06] MEDS: PANTOPRAZOLE 40 MG TABLET.DR. PO SCH (16:14)
--- NOTE | 2020-06-06 18:19 | NUR ---
Report given to kim on 5N, pt transported per W/C to room 516, with all belongings and medications.
[2020-06-06 19:00] VITALS: BP 131/59
[2020-06-06 23:00] VITALS: BP 166/65
[2020-06-07] MEDS: PIPERACILLIN/TAZOBACTAM 3.375 GM in IV NORMAL SALINE 50ML 50 ML IV SCH ×5 (00:01→23:28)
[2020-06-07] MEDS: HYDROcodone/APAP 5/325MG 1 TAB TABLET PO PRN ×5 (00:02→23:33)
[2020-06-07] MEDS: MORPHINE SULFATE 2 MG/ML VIAL. IV PRN ×5 (01:27→19:23)
[2020-06-07 03:00] VITALS: BP 150/63
[2020-06-07] MEDS: IV NORMAL SALINE 1000ML BAG 1,000 ML IV SCH ×2 (04:19→20:45)
[2020-06-07] MEDS: LEVOTHYROXINE 50 MCG TABLET PO SCH (06:16)
[2020-06-07 06:44] LABS: BASO % 1 % (0-3); EOS # 0.1 x10^3/uL (0.0-0.7); EOS % 8 % (0-3); HEMATOCRIT 30.3 % (36.0-47.0); HEMOGLOBIN 9.4 g/dL (12.0-15.5); LYMPH # 0.5 x10^3/uL (1.0-4.8); LYMPH % 30 % (24-48); MEAN CORPUSCULAR HEMOGLOBIN 23 pg (25-35); MEAN CORPUSCULAR HGB CONC 31 g/dL (31-37); MEAN CORPUSCULAR VOLUME 75 fL (79-100); MONO # 0.1 x10^3/uL (0.0-1.1); MONO % 9 % (0-9); NEUT # 0.8 x10^3/uL (1.8-7.7); NEUT % 52 % (31-73); PLATELET COUNT 32 x10^3/uL (140-400); RED BLOOD COUNT 4.06 x10^6/uL (3.50-5.40); RED CELL DISTRIBUTION WIDTH 19.7 % (11.5-14.5)
[2020-06-07 06:57] LABS: WHITE BLOOD COUNT 1.5 x10^3/uL (4.0-11.0)
[2020-06-07 07:00] VITALS: BP 148/59
[2020-06-07] MEDS: MIDODRINE 5 MG TABLET PO SCH ×3 (07:00→17:33)
[2020-06-07 07:30] LABS: ALBUMIN/GLOBULIN RATIO 0.5 (1.0-1.7); CALCIUM 8.1 mg/dL (8.5-10.1); GFR 56.6; POTASSIUM 4.3 mmol/L (3.5-5.1); TOTAL PROTEIN 5.8 g/dL (6.4-8.2)
[2020-06-07] MEDS: PANTOPRAZOLE 40 MG TABLET.DR. PO SCH ×2 (08:20→17:41)
[2020-06-07] MEDS: OMEGA-3 FATTY ACIDS/FISH OIL 1,000 MG CAPSULE. PO SCH (08:20)
[2020-06-07] MEDS: LACTULOSE 20 GM/30 ML SOLUTION. PO SCH ×3 (08:20→20:45)
[2020-06-07] MEDS: rifAXIMin 550 MG TABLET PO SCH ×2 (08:20→20:45)
[2020-06-07] MEDS: INSULIN LISPRO 300 UNITS/3 ML VIAL. SQ SCH ×3 (08:23→17:48)
--- NOTE | 2020-06-07 09:16 | PDOC ---
[employer] PROGRESS NOTE Date of Service DOS: DATE: 06/07/20 TIME: 09:16 Chief Complaint Chief Complaint A/P: Cellulitis of groin and labia -ID consulted, vancomycin and Zosyn therapy for now. Topical antifungal. Sepsis -due to cellulitis of groin failing outpatient therapy Severe protein calorie malnutrition -likely secondary to cirrhosis, will consult dietitian Pancytopenia -noted previously, her anemia and thrombocytopenia can be explained with her cirrhosis, her leukopenia however is not clear in its etiology. Diabetes -will place on insulin therapy while inpatient. Hold metformin. MACDONALD -with cirrhosis status post TIPS. Bipolar disease -we will consult psychiatry for medication recommendations. Hypothyroidism -continue levothyroxine Morbid obesity -counseled on weight loss techniques History of Present Illness History of Present Illness Ms Ashraf is a 59-year-old female with a history of diabetes, MACDONALD with cirrhosis s/p TIPS, bipolar disease, hypothyroidism, anemia, thrombocytopenia, and morbid obesity admitted with rash, neutropenia who presents with a chief complaint of groin discomfort. Patient states over the past 5 days she has had redness and swelling to her vulvar region. She stated 5 days ago she was seen in urgent care and prescribed nystatin powder and doxycycline for an infection, but did not seem to improve. No vaginal discharge or bleeding and denies any pain with bowel movement. She does note some burning sensation when she urinates. Noted with pancytopenia WBC 1.5, platelets 32, Hb 9.4 albumin 2, glucose 281. Admitted for failure of outpatient antibiotic therapy for groin cellulitis on vancomycin and Zosyn. Afebrile. She is not had BM last day despite her lactulose dosing. States her pain is controlled with IV morphine. She does not feel her groin is improving. Vitals/I&O Vitals/I&O: Vital Signs Date Time Temp Pulse Resp B/P (MAP) Pulse Ox O2 Delivery O2 Flow Rate FiO2 06/07/20 07:58 Room Air 06/07/20 07:00 84 148/59 06/07/20 07:00 97.6 20 92 2.0 97.6 I & O 06/06/20 06/06/20 06/07/20 15:00 23:00 07:00 Intake Total 960 ml 2269 ml 100 ml Balance 960 ml 2269 ml 100 ml Physical Exam General: Alert, Oriented X3, Cooperative Lungs: Clear Abdomen: Soft Extremities: No cyanosis Labs Labs: Laboratory Tests Test 06/06/20 09:25 06/06/20 12:03 06/06/20 16:47 06/06/20 22:21 White Blood Count 1.4 x10^3/uL (4.0-11.0) Red Blood Count 4.13 x10^6/uL (3.50-5.70) Hemoglobin 9.5 g/dL (12.0-15.5) Hematocrit 30.6 % (36.0-47.0) Mean Corpuscular Volume 75 fL (79-100) Mean Corpuscular Hemoglobin 23 pg (25-35) Mean Corpuscular Hemoglobin Concent 31 g/dL (31-37) Red Cell Distribution Width 19.5 % (11.5-14.5) Platelet Count 34 x10^3/uL (140-400) Neutrophils (%) (Auto) 56 % (31-73) Lymphocytes (%) (Auto) 27 % (24-48) Monocytes (%) (Auto) 7 % (0-9) Eosinophils (%) (Auto) 9 % (0-3) Basophils (%) (Auto) 1 % (0-3) Neutrophils # (Auto) 0.8 x10^3/uL (1.8-7.7) Lymphocytes # (Auto) 0.4 x10^3/uL (1.0-4.8) Monocytes # (Auto) 0.1 x10^3/uL (0.0-1.1) Eosinophils # (Auto) 0.1 x10^3/uL (0.0-0.7) Basophils # (Auto) 0.0 x10^3/uL (0.0-0.2) Segmented Neutrophils % 53 % (35-66) Band Neutrophils % 1 % (0-9) Lymphocytes % 30 % (24-48) Monocytes % 6 % (0-10) Eosinophils % 9 % (0-5) Basophils % 1 % (0-3) Platelet Estimate Decreased (ADEQUATE) Hypochromasia Present Microcytosis Present Absolute Reticulocyte Count 0.133 x10^6/uL (0.020-0.120) Percent Reticulocyte Count 3.2 % (0.5-2.3) Immature Reticulocyte Fraction 0.37 (0.20-0.60) Sodium Level 136 mmol/L (136-145) Potassium Level 4.3 mmol/L (3.5-5.1) Chloride Level 105 mmol/L (98-107) Carbon Dioxide Level 26 mmol/L (21-32) Anion Gap 5 (6-14) Blood Urea Nitrogen 12 mg/dL (7-20) Creatinine 1.1 mg/dL (0.6-1.0) Estimated GFR (Cockcroft-Gault) 50.7 Glucose Level 364 mg/dL (70-99) Uric Acid 3.4 mg/dL (2.6-6.0) Calcium Level 7.9 mg/dL (8.5-10.1) Iron Level 24 ug/dL (50-170) Total Iron Binding Capacity 324 ug/dL (250-450) Iron Saturation 7 % (15-34) Lactate Dehydrogenase 265 U/L (81-234) Glucose (Fingerstick) 307 mg/dL (70-99) 259 mg/dL (70-99) 255 mg/dL (70-99) Test 06/07/20 05:30 06/07/20 07:45 White Blood Count 1.5 x10^3/uL (4.0-11.0) Red Blood Count 4.06 x10^6/uL (3.50-5.40) Hemoglobin 9.4 g/dL (12.0-15.5) Hematocrit 30.3 % (36.0-47.0) Mean Corpuscular Volume 75 fL (79-100) Mean Corpuscular Hemoglobin 23 pg (25-35) Mean Corpuscular Hemoglobin Concent 31 g/dL (31-37) Red Cell Distribution Width 19.7 % (11.5-14.5) Platelet Count 32 x10^3/uL (140-400) Neutrophils (%) (Auto) 52 % (31-73) Lymphocytes (%) (Auto) 30 % (24-48) Monocytes (%) (Auto) 9 % (0-9) Eosinophils (%) (Auto) 8 % (0-3) Basophils (%) (Auto) 1 % (0-3) Neutrophils # (Auto) 0.8 x10^3/uL (1.8-7.7) Lymphocytes # (Auto) 0.5 x10^3/uL (1.0-4.8) Monocytes # (Auto) 0.1 x10^3/uL (0.0-1.1) Eosinophils # (Auto) 0.1 x10^3/uL (0.0-0.7) Basophils # (Auto) 0.0 x10^3/uL (0.0-0.2) Sodium Level 138 mmol/L (136-145) Potassium Level 4.3 mmol/L (3.5-5.1) Chloride Level 106 mmol/L (98-107) Carbon Dioxide Level 28 mmol/L (21-32) Anion Gap 4 (6-14) Blood Urea Nitrogen 10 mg/dL (7-20) Creatinine 1.0 mg/dL (0.6-1.0) Estimated GFR (Cockcroft-Gault) 56.6 BUN/Creatinine Ratio 10 (6-20) Glucose Level 281 mg/dL (70-99) Calcium Level 8.1 mg/dL (8.5-10.1) Ferritin 16 ng/mL (8-252) Total Bilirubin 1.0 mg/dL (0.2-1.0) Aspartate Amino Transf (AST/SGOT) 30 U/L (15-37) Alanine Aminotransferase (ALT/SGPT) 17 U/L (14-59) Alkaline Phosphatase 79 U/L (46-116) Total Protein 5.8 g/dL (6.4-8.2) Albumin 2.0 g/dL (3.4-5.0) Albumin/Globulin Ratio 0.5 (1.0-1.7) Glucose (Fingerstick) 273 mg/dL (70-99) Assessment and Plan Assessmemt and Plan Problems Medical Problems: (1) Cellulitis, perineum Status: Acute (2) MACDONALD (nonalcoholic steatohepatitis) Status: Acute Comment Review of Relevant I have reviewed the following items tano (where applicable) has been applied. Medications: Current Medications Medications (Trade) Dose Ordered Sig/Boyd Route PRN Reason Start Time Stop Time Status Last Admin Dose Admin Acetaminophen/ Hydrocodone Bitart (Lortab 5/325) 1 tab PRN Q4HRS PRN PO PAIN 06/06/20 11:00 06/07/20 06:16 Vancomycin HCl (Vanco Per Pharmacy) 1 each PRN DAILY PRN MC SEE COMMENTS 06/06/20 12:45 06/06/20 12:50 Piperacillin Sod/ Tazobactam Sod 3.375 gm/Sodium Chloride 50 ml @ 100 mls/hr Q6HRS IV 06/06/20 13:30 06/07/20 06:15 Vancomycin HCl 1.75 gm/Sodium Chloride 500 ml @ 250 mls/hr Q18H IV 06/06/20 15:00 06/06/20 16:13 Vancomycin HCl (Vancomycin Trough Level) 1 each 1X ONCE MC 06/07/20 08:30 06/07/20 08:31 DC 06/07/20 08:20 Lactulose (Lactulose) 20 gm TID PO 06/06/20 14:00 06/07/20 08:20 Fish Oil (Fish Oil) 1,000 mg DAILY PO 06/07/20 09:00 06/07/20 08:20 Pantoprazole Sodium (Protonix) 40 mg BIDAC PO 06/06/20 16:30 06/07/20 08:20 Rifaximin (Xifaxan) 550 mg BID PO 06/06/20 15:00 06/07/20 08:20 Levothyroxine Sodium (Synthroid) 50 mcg DAILY06 PO 06/06/20 15:00 06/07/20 06:16 Insulin Human Lispro (HumaLOG) 0-5 UNITS TIDWMEALS SQ 06/06/20 17:00 06/07/20 08:23 Morphine Sulfate (Morphine Sulfate) 2 mg PRN Q2HR PRN IV SEVERE PAIN 7-10 06/07/20 00:30 06/07/20 04:19 Justifications for Admission Other Justification MERARI CARDOSO MD Jun 07, 2020 09:16
[2020-06-07 09:51] LABS: VANC TR 10.9 mcg/mL (10.0-20.0)
--- NOTE | 2020-06-07 10:31 | NUR ---
SW following. Discussed with RN, pt from home with , independent, currently on o2 which is pt does not use at home - RN attempting to titrate. Pt on IV Vanc/ zosyn. Lupus screen today. RN advised no SW needs at this time, SW will continue to follow.
[2020-06-07 11:00] VITALS: BP 133/59
[2020-06-07] MEDS ORDERED: POLYETHYLENE GLYCOL 3350 17 GM PACKET. PO PRN (11:00)
[2020-06-07] MEDS: PSYLLIUM HUSK (SUGAR FREE) 1 PKT PACKET PO SCH (11:13)
[2020-06-07] MEDS: VANCOMYCIN 1.75 GM in IV NORMAL SALINE 500ML BAG 500 ML IV SCH (11:14)
--- NOTE | 2020-06-07 11:51 | PDOC2 ---
GI CONSULT Date of Service: DATE: 06/07/20 TIME: 11:51 Reason For Consult: MACDONALD w/ pancytopenia HPI: HPI: Pleasant 60 y/o female admitted w/ cellulitis of groin/labia and sepsis. H/o MACDONALD cirrhosis and varices s/p TIPS. Follows w/ Dr. Brandt at . Recalls low platelet count in the past w/ past hematology eval at . Outside records (from [facility]) show pancytopenia. H/o hepatic encephalopathy. Tells me stooling w/ lactulose TID. Also takes Xifaxan BID. Denies reflux/heartburn, dysphagia, n/v, abd pain, diarrhea, constipation, hematochezia, melena, hematemesis, or change in appetite. Has intentionally lost a few pounds. Reports normal EGD @ earlier this year. EGD w/ Dr. Mendoza in 04/2014 w/ grade 2 varices, esophagus ulcer related to previous banding, and duodenal ulcer. On PPI QD. Colonoscopy w/ Dr. Escobedo in 07/2015 w/ polyp. No GB or pancreas history. Denies NSAIDs and home pain medications. PMH: PMH: cirrhosis (MACDONALD) w/ esophageal and gastric varices, portosystemic encephalopathy, PVT, anemia, PUD, nephrolithiasis, Jordan's palsy, DM, hypothyroidism, bipolar, HTN, HLD, UTI, back pain TIPS, tonsillectomy FH: Family History: No pertinent hx (no GI cancers) Social History: Smoke: No ALCOHOL: none Drugs: None ROS: GEN: Denies fevers, chills, sweats HEENT: Denies blurred vision, sore throat CV: Denies chest pain RESP: Denies shortness of air, cough GI: Per HPI : Denies hematuria, dysuria ENDO: weight loss NEURO: Denies confusion, dizziness MSK: Denies weakness, joint pain/swelling SKIN: rash Vitals: Vitals: Vital Signs Date Time Temp Pulse Resp B/P (MAP) Pulse Ox O2 Delivery O2 Flow Rate FiO2 06/07/20 11:22 Nasal Cannula 1.0 06/07/20 11:00 97.7 78 20 133/59 (83) 98 97.7 Labs: Labs: Laboratory Tests Test 06/06/20 12:03 06/06/20 16:47 06/06/20 22:21 06/07/20 05:30 Glucose (Fingerstick) 307 mg/dL (70-99) 259 mg/dL (70-99) 255 mg/dL (70-99) White Blood Count 1.5 x10^3/uL (4.0-11.0) Red Blood Count 4.06 x10^6/uL (3.50-5.40) Hemoglobin 9.4 g/dL (12.0-15.5) Hematocrit 30.3 % (36.0-47.0) Mean Corpuscular Volume 75 fL (79-100) Mean Corpuscular Hemoglobin 23 pg (25-35) Mean Corpuscular Hemoglobin Concent 31 g/dL (31-37) Red Cell Distribution Width 19.7 % (11.5-14.5) Platelet Count 32 x10^3/uL (140-400) Neutrophils (%) (Auto) 52 % (31-73) Lymphocytes (%) (Auto) 30 % (24-48) Monocytes (%) (Auto) 9 % (0-9) Eosinophils (%) (Auto) 8 % (0-3) Basophils (%) (Auto) 1 % (0-3) Neutrophils # (Auto) 0.8 x10^3/uL (1.8-7.7) Lymphocytes # (Auto) 0.5 x10^3/uL (1.0-4.8) Monocytes # (Auto) 0.1 x10^3/uL (0.0-1.1) Eosinophils # (Auto) 0.1 x10^3/uL (0.0-0.7) Basophils # (Auto) 0.0 x10^3/uL (0.0-0.2) Sodium Level 138 mmol/L (136-145) Potassium Level 4.3 mmol/L (3.5-5.1) Chloride Level 106 mmol/L (98-107) Carbon Dioxide Level 28 mmol/L (21-32) Anion Gap 4 (6-14) Blood Urea Nitrogen 10 mg/dL (7-20) Creatinine 1.0 mg/dL (0.6-1.0) Estimated GFR (Cockcroft-Gault) 56.6 BUN/Creatinine Ratio 10 (6-20) Glucose Level 281 mg/dL (70-99) Calcium Level 8.1 mg/dL (8.5-10.1) Ferritin 16 ng/mL (8-252) Total Bilirubin 1.0 mg/dL (0.2-1.0) Aspartate Amino Transf (AST/SGOT) 30 U/L (15-37) Alanine Aminotransferase (ALT/SGPT) 17 U/L (14-59) Alkaline Phosphatase 79 U/L (46-116) Total Protein 5.8 g/dL (6.4-8.2) Albumin 2.0 g/dL (3.4-5.0) Albumin/Globulin Ratio 0.5 (1.0-1.7) Test 06/07/20 07:45 06/07/20 09:05 Glucose (Fingerstick) 273 mg/dL (70-99) Vancomycin Level Trough 10.9 mcg/mL (10.0-20.0) Vancomycin Last Dose Date 06/06/2020 Vancomycin Last Dose Time 1500 GRAM STAIN Final Final GRAM NEGATIVE RODS:RARE GRAM POSITIVE COCCI:FEW SQUAMOUS EPI CELL:RARE PMN (WBCs):FEW Unless otherwise specified, Testing Performed by: [address] [address] For Inquires, the Physician may contact the Microbiology department at [phone] ANAEROBIC-AEROBIC CULTURE PENDING BLOOD CULTURE Preliminary NO GROWTH AFTER 1 DAY Allergies: Coded Allergies: lorazepam (Verified Allergy, Severe, Rash, 12/09/19) risperidone (Verified Allergy, Severe, 06/07/20) Patient's card reads "Asymptomatic reaction" ziprasidone (Verified Allergy, Severe, 06/07/20) Patient's card reads "Asymptomatic reaction" chlorpromazine (Verified Allergy, Intermediate, 06/07/20) Patient's card reads "Asymptomatic reaction" morphine (Verified Allergy, Intermediate, 06/07/20) Patient's card reads -"May have BiPolar Symptoms if taken for a ling time." Medications: Current Medications Medications (Trade) Dose Ordered Sig/Boyd Route PRN Reason Start Time Stop Time Status Last Admin Dose Admin Vancomycin HCl (Vanco Per Pharmacy) 1 each PRN DAILY PRN MC SEE COMMENTS 06/06/20 12:45 06/06/20 12:50 Piperacillin Sod/ Tazobactam Sod 3.375 gm/Sodium Chloride 50 ml @ 100 mls/hr Q6HRS IV 06/06/20 13:30 06/07/20 06:15 Vancomycin HCl 1.75 gm/Sodium Chloride 500 ml @ 250 mls/hr Q18H IV 06/06/20 15:00 06/07/20 11:14 Vancomycin HCl (Vancomycin Trough Level) 1 each 1X ONCE MC 06/07/20 08:30 06/07/20 08:31 DC 06/07/20 08:20 Lactulose (Lactulose) 20 gm TID PO 06/06/20 14:00 06/07/20 08:20 Fish Oil (Fish Oil) 1,000 mg DAILY PO 06/07/20 09:00 06/07/20 08:20 Pantoprazole Sodium (Protonix) 40 mg BIDAC PO 06/06/20 16:30 06/07/20 08:20 Rifaximin (Xifaxan) 550 mg BID PO 06/06/20 15:00 06/07/20 08:20 Levothyroxine Sodium (Synthroid) 50 mcg DAILY06 PO 06/06/20 15:00 06/07/20 06:16 Insulin Human Lispro (HumaLOG) 0-5 UNITS TIDWMEALS SQ 06/06/20 17:00 06/07/20 08:23 Morphine Sulfate (Morphine Sulfate) 2 mg PRN Q2HR PRN IV SEVERE PAIN 7-10 06/07/20 00:30 06/07/20 09:16 Psyllium Hydrophilic Mucilloid (Metamucil Fiber Packet) 1 pkt DAILY PO 06/07/20 11:00 06/07/20 11:13 Imaging: Imaging: CXR IMPRESSION: No radiographic evidence of an acute cardiopulmonary process. CT A/P IMPRESSION: 1. Air and inflammatory changes seen in the left medial upper thigh. No focal fluid collection is identified. 2. Cirrhotic morphology of liver with TIPS changes. 3. Nonocclusive chronic appearing thrombus in the splenic vein. PE: GEN: NAD HEENT: Atraumatic, PERRL LUNGS: CTAB HEART: RRR ABD: NABS, S/ND/NT EXTREMITY: No edema SKIN: deferred NEURO/PSYCH: A & O 3 A/P: A/P: Cellulitis MACDONALD cirrhosis s/p TIPS, h/o varices and encephalopathy - follows at Pancytopenia, iron deficiency - Hgb and plt stable, WBC lower than in the past (here) H/o DU - on PPI; reports normal EGD at earlier this year CRC screen, h/o polyp - UTD -- Continue PPI, lactulose, Xifaxan - note also has Metamucil, Miralax. Will review w/ Dr. Hernandez. BOBBY MURILLO Jun 07, 2020 11:51
[2020-06-07] MEDS: VANCOMYCIN PER PHARMACY MC PRN (11:53)
--- NOTE | 2020-06-07 12:09 | NUR ---
Pharmacy Vancomycin Dosing Note S: Consulted to monitor and dose vancomycin started 06/05/20. O: JOO BOYER is a 60 year old F with Cellulitis, . Other Antibiotics: ZOSYN, MYCAMINE LABS: Last BUN: 10 Last Creatinine: 1.0 Creatinine Clearance: 86 mL/min Last WBC: 1.5 Tmax (past 24 hours): 97.7 Drug Levels: Last Trough level: 10.9 on 06/07/20 at 0905 Last dose given 06/07/20 at 1114 Vancomycin Dosing: Dosing Weight: Actual Target Trough: 10-20 A: Based on: THERAPEUTIC TROUGH P: 1. Continue Vancomycin 1750 mg IV q18h 2. Follow up Trough level in 5-7 days or if renal function changes 3. Pharmacy will continue to monitor, follow and adjust therapy as needed. KELLY REECE RPH, 06/07/20 [id number]
--- NOTE | 2020-06-07 12:47 | PDOC2 ---
CONSULT Date of Consult Date of Consult DATE: 06/07/20 TIME: 12:39 Reason for Consult Reason for Consult: Pancytopenia Referring Physician Referring Physician: Dr. Vallecillo Identification/Chief Complaint Chief Complaint Vulvar cellulitis Source Source: Chart review, Patient History of Present Illness Reason for Visit: Love Marcos is a 60-year-old female with nonalcoholic steatohepatitis who has been admitted for further evaluation and management of vulvar cellulitis. She initially presented to the emergency room with reports of groin discomfort. Patient states over the past 5 days she has had redness and swelling to her vulvar region. She stated 5 days ago she was seen in urgent care and prescribed nystatin powder and doxycycline for an infection but did not notice any improvement with this. She reported associated dysuria. She denies fever or chills. She has been admitted for further evaluation and management of vulvar cellulitis. She is currently on empiric antibiotic therapy. Her lab studies during hospital stay have shown pancytopenia. I have been consulted for further evaluation and management of these findings. Review of her prior lab studies shows leukopenia, neutropenia and thrombocytopenia. Patient does have a history of nonalcoholic steatohepatitis. She follows with Dr. Cristi Brandt at [facility]. She reports having been told about her low blood counts before. She has previously seen hematology at [facility] in consultation. Past Medical History Hepatobiliary: Other Psych: Bipolar Endocrine: Diabetes, Hypothyroidism Past Surgical History Past Surgical History: Other Family History Family History: High Cholestrol, Hypertension Social History No ALCOHOL: none Drugs: None Current Problem List Problem List Problems Medical Problems: (1) Cellulitis, perineum Status: Acute (2) MACDONALD (nonalcoholic steatohepatitis) Status: Acute Current Medications Current Medications Current Medications Ringer's Solution 1,000 ml @ 2,000 mls/hr 1X ONCE IV Last administered on 06/05/20at 19:00; Start 06/05/20 at 18:15; Stop 06/05/20 at 18:44; Status DC Hydromorphone HCl (Dilaudid) 1 mg 1X ONCE IV Last administered on 06/05/20at 18:26; Start 06/05/20 at 18:15; Stop 06/05/20 at 18:16; Status DC Ondansetron HCl (Zofran) 4 mg 1X ONCE IVP Last administered on 06/05/20at 18:25; Start 06/05/20 at 18:15; Stop 06/05/20 at 18:16; Status DC Iohexol (Omnipaque 300 Mg/ml) 60 ml 1X ONCE IV Last administered on 06/05/20at 19:15; Start 06/05/20 at 19:00; Stop 06/05/20 at 19:07; Status DC Info (CONTRAST GIVEN -- Rx MONITORING) 1 each PRN DAILY PRN MC SEE COMMENTS; Start 06/05/20 at 19:15; Stop 06/07/20 at 19:14 Vancomycin HCl 2 gm/Sodium Chloride 500 ml @ 250 mls/hr 1X ONCE IV Last administered on 06/05/20at 20:53; Start 06/05/20 at 20:30; Stop 06/05/20 at 22:29; Status DC Piperacillin Sod/ Tazobactam Sod 3.375 gm/Sodium Chloride 50 ml @ 100 mls/hr 1X ONCE IV Last administered on 06/05/20at 20:16; Start 06/05/20 at 20:00; Stop 06/05/20 at 20:29; Status DC Ondansetron HCl (Zofran) 4 mg PRN Q8HRS PRN IV NAUSEA/VOMITING; Start 06/05/20 at 20:30; Stop 06/06/20 at 20:29; Status DC Morphine Sulfate (Morphine Sulfate) 4 mg PRN Q2HR PRN IV PAIN Last administered on 06/06/20at 19:59; Start 06/05/20 at 20:30; Stop 06/06/20 at 20:29; Status DC Sodium Chloride 1,000 ml @ 1,500 mls/hr 1X ONCE IV Last administered on 06/05/20at 20:52; Start 06/05/20 at 20:30; Stop 06/05/20 at 21:09; Status DC Insulin Human Lispro (HumaLOG) 0-7 UNITS TIDWMEALS SQ Last administered on 06/06/20at 12:25; Start 06/06/20 at 08:00; Stop 06/06/20 at 13:39; Status DC Dextrose (Dextrose 50%-Water Syringe) 12.5 gm PRN Q15MIN PRN IV SEE COMMENTS; Start 06/06/20 at 01:00 Sodium Chloride 1,000 ml @ 70 mls/hr [id number] IV Last administered on 06/07/20at 04:19; Start 06/06/20 at 01:00 Insulin Human Lispro (HumaLOG) 4 units 1X ONCE SQ Last administered on 06/06/20at 01:49; Start 06/06/20 at 01:30; Stop 06/06/20 at 01:31; Status DC Acetaminophen/ Hydrocodone Bitart (Lortab 5/325) 1 tab PRN Q4HRS PRN PO MILD TO MODERATE PAIN Last administered on 06/07/20at 11:22; Start 06/06/20 at 11:00 Vancomycin HCl (Vanco Per Pharmacy) 1 each PRN DAILY PRN MC SEE COMMENTS Last administered on 06/07/20at 11:53; Start 06/06/20 at 12:45 Piperacillin Sod/ Tazobactam Sod (Zosyn Per Pharmacy) 1 each PRN DAILY PRN MC SEE COMMENTS; Start 06/06/20 at 12:45 Piperacillin Sod/ Tazobactam Sod 3.375 gm/Sodium Chloride 50 ml @ 100 mls/hr Q6HRS IV Last administered on 06/07/20at 12:16; Start 06/06/20 at 13:30 Vancomycin HCl 1.75 gm/Sodium Chloride 500 ml @ 250 mls/hr Q18H IV Last a dministered on 06/07/20at 11:14; Start 06/06/20 at 15:00 Vancomycin HCl (Vancomycin Trough Level) 1 each 1X ONCE MC Last administered on 06/07/20at 08:20; Start 06/07/20 at 08:30; Stop 06/07/20 at 08:31; Status DC Lactulose (Lactulose) 20 gm TID PO Last administered on 06/07/20at 08:20; Start 06/06/20 at 14:00 Fish Oil (Fish Oil) 1,000 mg DAILY PO Last administered on 06/07/20at 08:20; Start 06/07/20 at 09:00 Pantoprazole Sodium (Protonix) 40 mg BIDAC PO Last administered on 06/07/20at 08:20; Start 06/06/20 at 16:30 Polyethylene Glycol (miraLAX PACKET) 17 gm TID PO ; Start 06/07/20 at 21:00 Rifaximin (Xifaxan) 550 mg BID PO Last administered on 06/07/20at 08:20; Start 06/06/20 at 15:00 Midodrine (Proamatine) 10 mg [id number] PO ; Start 06/06/20 at 14:30 Levothyroxine Sodium (Synthroid) 50 mcg DAILY06 PO Last administered on 06/07/20at 06:16; Start 06/06/20 at 15:00 Insulin Human Lispro (HumaLOG) 0-5 UNITS TIDWMEALS SQ Last administered on 06/07/20at 12:15; Start 06/06/20 at 17:00 Dextrose (Dextrose 50%-Water Syringe) 12.5 gm PRN Q15MIN PRN IV SEE COMMENTS; Start 06/06/20 at 13:30; Stop 06/06/20 at 13:39; Status DC Morphine Sulfate (Morphine Sulfate) 2 mg PRN Q2HR PRN IV SEVERE PAIN 7-10 Last administered on 06/07/20at 09:16; Start 06/07/20 at 00:30 Psyllium Hydrophilic Mucilloid (Metamucil Fiber Packet) 1 pkt DAILY PO Last administered on 06/07/20at 11:13; Start 06/07/20 at 11:00 Polyethylene Glycol (miraLAX PACKET) 17 gm PRN DAILY PRN PO CONSTIPATION; Start 06/07/20 at 11:00 Insulin Glargine (Lantus Syringe) 10 unit QHS SQ ; Start 06/07/20 at 21:00 Micafungin Sodium 100 mg/Dextrose 100 ml @ 100 mls/hr Q24H IV ; Start 06/07/20 at 12:00 Lactobacillus Rhamnosus (Culturelle) 1 cap BID PO ; Start 06/07/20 at 21:00 Active Scripts Active Reported Trazodone Hcl 50 Mg Tablet 50 Mg PO DAILY Fish Oil 1,000 Mg Softgel ([place]-3 Fatty Acids/Fish Oil) 1 Each Capsule 1 Cap PO DAILY 30 Days Victoza 3-Perez (Liraglutide) 0.6 Mg/0.1 Ml Pen.injctr 1.2 Mg SQ DAILY Bupropion Hcl Sr (Bupropion Hcl) 100 Mg Tablet.er 100 Mg PO DAILY Xifaxan (Rifaximin) 550 Mg Tablet 1 Tab PO BID 10 Days Topiramate 100 Mg Tablet 100 Mg PO DAILY Pantoprazole Sodium (Pantoprazole Sodium) 40 Mg Tablet.dr 40 Mg PO BIDAC Midodrine Hcl 10 Mg Tablet 10 Mg PO TID Glycolax (Polyethylene Glycol 3350) 119 Gm Powder 17 Gm PO TID Take according to instructions on printed sheet Lactulose 20 Gm/30 Ml Solution 20 Gm PO TID Levothyroxine Sodium Unknown Strength Tablet 0.5 PO DAILY Metformin Hcl Unknown Strength Tablet 500 PO BIDWMEALS Allergies Allergies: Coded Allergies: lorazepam (Verified Allergy, Severe, Rash, 12/09/19) risperidone (Verified Allergy, Severe, 06/07/20) Patient's card reads "Asymptomatic reaction" ziprasidone (Verified Allergy, Severe, 06/07/20) Patient's card reads "Asymptomatic reaction" chlorpromazine (Verified Allergy, Intermediate, 06/07/20) Patient's card reads "Asymptomatic reaction" morphine (Verified Allergy, Intermediate, 06/07/20) Patient's card reads -"May have BiPolar Symptoms if taken for a ling time." ROS General: No: Chills, Night Sweats PSYCHOLOGICAL ROS: No: Anxiety, Hallucinations Eyes: No Blurry vision, No Decreased vision HEENT: No: Heacaches, Visual Changes ALLERGY AND IMMUNOLOGY: No: Nasal Congestion, Post Nasal Drip Hematological and Lymphatic: No: Blood Clots, Blood Transfusions, Brusing, Night Sweats ENDOCRINE: No: Breast Changes, Galactorrhea Breast: No New/Changing Breast Lumps Respiratory: No: Cough, Hemoptysis Cardiovascular: No Chest Pain, No Palpitations Gastrointestinal: No Nausea, No Vomiting, No Constipation, No Melena, No Hematochezia Genitourinary: No Dysuria, No Flank Pain Musculoskeletal: No Gait Disturbance, No Joint Pain Neurological: No Behavorial Changes, No Bowel/Bladder ControlChng Skin: No Dry Skin Physical Exam General: Alert, Oriented X3 HEENT: Atraumatic, PERRLA Lungs: Clear to auscultation Heart: Regular rate Abdomen: Normal bowel sounds, Soft, Other (Palpable splenomegaly) Extremities: No clubbing Skin: No rashes Neuro: Normal gait Psych/Mental Status: Mental status NL MUSCULOSKELETAL: No joint tenderness Vitals VITALS Vital Signs Date Time Temp Pulse Resp B/P (MAP) Pulse Ox O2 Delivery O2 Flow Rate FiO2 06/07/20 11:22 Nasal Cannula 1.0 06/07/20 11:00 97.7 78 20 133/59 (83) 98 97.7 Labs Labs Laboratory Tests Test 06/05/20 18:15 06/05/20 19:39 06/05/20 21:45 06/06/20 01:04 White Blood Count 2.0 x10^3/uL (4.0-11.0) Red Blood Count 4.34 x10^6/uL (3.50-5.40) Hemoglobin 10.1 g/dL (12.0-15.5) Hematocrit 32.0 % (36.0-47.0) Mean Corpuscular Volume 74 fL (79-100) Mean Corpuscular Hemoglobin 23 pg (25-35) Mean Corpuscular Hemoglobin Concent 32 g/dL (31-37) Red Cell Distribution Width 19.5 % (11.5-14.5) Platelet Count 46 x10^3/uL (140-400) Neutrophils (%) (Auto) 61 % (31-73) Lymphocytes (%) (Auto) 26 % (24-48) Monocytes (%) (Auto) 7 % (0-9) Eosinophils (%) (Auto) 5 % (0-3) Basophils (%) (Auto) 1 % (0-3) Neutrophils # (Auto) 1.2 x10^3/uL (1.8-7.7) Lymphocytes # (Auto) 0.5 x10^3/uL (1.0-4.8) Monocytes # (Auto) 0.1 x10^3/uL (0.0-1.1) Eosinophils # (Auto) 0.1 x10^3/uL (0.0-0.7) Basophils # (Auto) 0.0 x10^3/uL (0.0-0.2) Sodium Level 134 mmol/L (136-145) Potassium Level 4.0 mmol/L (3.5-5.1) Chloride Level 102 mmol/L (98-107) Carbon Dioxide Level 27 mmol/L (21-32) Anion Gap 5 (6-14) Blood Urea Nitrogen 15 mg/dL (7-20) Creatinine 1.2 mg/dL (0.6-1.0) Estimated GFR (Cockcroft-Gault) 45.8 BUN/Creatinine Ratio 13 (6-20) Glucose Level 446 mg/dL (70-99) Lactic Acid Level 2.3 mmol/L (0.4-2.0) 1.3 mmol/L (0.4-2.0) Calcium Level 8.5 mg/dL (8.5-10.1) Total Bilirubin 0.9 mg/dL (0.2-1.0) Aspartate Amino Transf (AST/SGOT) 25 U/L (15-37) Alanine Aminotransferase (ALT/SGPT) 19 U/L (14-59) Alkaline Phosphatase 92 U/L (46-116) Total Protein 6.0 g/dL (6.4-8.2) Albumin 2.0 g/dL (3.4-5.0) Albumin/Globulin Ratio 0.5 (1.0-1.7) Lipase 225 U/L (73-393) Urine Collection Type Unknown Urine Color Yellow Urine Clarity Clear Urine pH 6.5 (<5.0-8.0) Urine Specific Horner >=1.030 (1.000-1.030) Urine Protein 100 mg/dL (NEG-TRACE) Urine Glucose (UA) >=1000 mg/dL (NEG) Urine Ketones (Stick) Negative mg/dL (NEG) Urine Blood Moderate (NEG) Urine Nitrite Negative (NEG) Urine Bilirubin Negative (NEG) Urine Urobilinogen Dipstick 1.0 mg/dL (0.2 mg/dL) Urine Leukocyte Esterase Negative (NEG) Urine RBC 6-10 /HPF (0-2) Urine WBC 1-4 /HPF (0-4) Urine Squamous Epithelial Cells Occ /LPF Urine Bacteria Few /HPF (0-FEW) Glucose (Fingerstick) 393 mg/dL (70-99) Test 06/06/20 08:11 06/06/20 09:25 06/06/20 12:03 06/06/20 16:47 Glucose (Fingerstick) 286 mg/dL (70-99) 307 mg/dL (70-99) 259 mg/dL (70-99) White Blood Count 1.4 x10^3/uL (4.0-11.0) Red Blood Count 4.13 x10^6/uL (3.50-5.70) Hemoglobin 9.5 g/dL (12.0-15.5) Hematocrit 30.6 % (36.0-47.0) Mean Corpuscular Volume 75 fL (79-100) Mean Corpuscular Hemoglobin 23 pg (25-35) Mean Corpuscular Hemoglobin Concent 31 g/dL (31-37) Red Cell Distribution Width 19.5 % (11.5-14.5) Platelet Count 34 x10^3/uL (140-400) Neutrophils (%) (Auto) 56 % (31-73) Lymphocytes (%) (Auto) 27 % (24-48) Monocytes (%) (Auto) 7 % (0-9) Eosinophils (%) (Auto) 9 % (0-3) Basophils (%) (Auto) 1 % (0-3) Neutrophils # (Auto) 0.8 x10^3/uL (1.8-7.7) Lymphocytes # (Auto) 0.4 x10^3/uL (1.0-4.8) Monocytes # (Auto) 0.1 x10^3/uL (0.0-1.1) Eosinophils # (Auto) 0.1 x10^3/uL (0.0-0.7) Basophils # (Auto) 0.0 x10^3/uL (0.0-0.2) Segmented Neutrophils % 53 % (35-66) Band Neutrophils % 1 % (0-9) Lymphocytes % 30 % (24-48) Monocytes % 6 % (0-10) Eosinophils % 9 % (0-5) Basophils % 1 % (0-3) Platelet Estimate Decreased (ADEQUATE) Hypochromasia Present Microcytosis Present Absolute Reticulocyte Count 0.133 x10^6/uL (0.020-0.120) Percent Reticulocyte Count 3.2 % (0.5-2.3) Immature Reticulocyte Fraction 0.37 (0.20-0.60) Sodium Level 136 mmol/L (136-145) Potassium Level 4.3 mmol/L (3.5-5.1) Chloride Level 105 mmol/L (98-107) Carbon Dioxide Level 26 mmol/L (21-32) Anion Gap 5 (6-14) Blood Urea Nitrogen 12 mg/dL (7-20) Creatinine 1.1 mg/dL (0.6-1.0) Estimated GFR (Cockcroft-Gault) 50.7 Glucose Level 364 mg/dL (70-99) Uric Acid 3.4 mg/dL (2.6-6.0) Calcium Level 7.9 mg/dL (8.5-10.1) Iron Level 24 ug/dL (50-170) Total Iron Binding Capacity 324 ug/dL (250-450) Iron Saturation 7 % (15-34) Lactate Dehydrogenase 265 U/L (81-234) Vitamin B12 Level 1052 pg/mL (247-911) Test 06/06/20 22:21 06/07/20 05:30 06/07/20 07:45 06/07/20 09:05 Glucose (Fingerstick) 255 mg/dL (70-99) 273 mg/dL (70-99) White Blood Count 1.5 x10^3/uL (4.0-11.0) Red Blood Count 4.06 x10^6/uL (3.50-5.40) Hemoglobin 9.4 g/dL (12.0-15.5) Hematocrit 30.3 % (36.0-47.0) Mean Corpuscular Volume 75 fL (79-100) Mean Corpuscular Hemoglobin 23 pg (25-35) Mean Corpuscular Hemoglobin Concent 31 g/dL (31-37) Red Cell Distribution Width 19.7 % (11.5-14.5) Platelet Count 32 x10^3/uL (140-400) Neutrophils (%) (Auto) 52 % (31-73) Lymphocytes (%) (Auto) 30 % (24-48) Monocytes (%) (Auto) 9 % (0-9) Eosinophils (%) (Auto) 8 % (0-3) Basophils (%) (Auto) 1 % (0-3) Neutrophils # (Auto) 0.8 x10^3/uL (1.8-7.7) Lymphocytes # (Auto) 0.5 x10^3/uL (1.0-4.8) Monocytes # (Auto) 0.1 x10^3/uL (0.0-1.1) Eosinophils # (Auto) 0.1 x10^3/uL (0.0-0.7) Basophils # (Auto) 0.0 x10^3/uL (0.0-0.2) Sodium Level 138 mmol/L (136-145) Potassium Level 4.3 mmol/L (3.5-5.1) Chloride Level 106 mmol/L (98-107) Carbon Dioxide Level 28 mmol/L (21-32) Anion Gap 4 (6-14) Blood Urea Nitrogen 10 mg/dL (7-20) Creatinine 1.0 mg/dL (0.6-1.0) Estimated GFR (Cockcroft-Gault) 56.6 BUN/Creatinine Ratio 10 (6-20) Glucose Level 281 mg/dL (70-99) Calcium Level 8.1 mg/dL (8.5-10.1) Ferritin 16 ng/mL (8-252) Total Bilirubin 1.0 mg/dL (0.2-1.0) Aspartate Amino Transf (AST/SGOT) 30 U/L (15-37) Alanine Aminotransferase (ALT/SGPT) 17 U/L (14-59) Alkaline Phosphatase 79 U/L (46-116) Total Protein 5.8 g/dL (6.4-8.2) Albumin 2.0 g/dL (3.4-5.0) Albumin/Globulin Ratio 0.5 (1.0-1.7) Vancomycin Level Trough 10.9 mcg/mL (10.0-20.0) Vancomycin Last Dose Date 06/06/2020 Vancomycin Last Dose Time 1500 Test 06/07/20 11:55 Glucose (Fingerstick) 286 mg/dL (70-99) Laboratory Tests Test 06/06/20 16:47 06/06/20 22:21 06/07/20 05:30 06/07/20 07:45 Glucose (Fingerstick) 259 mg/dL (70-99) 255 mg/dL (70-99) 273 mg/dL (70-99) White Blood Count 1.5 x10^3/uL (4.0-11.0) Red Blood Count 4.06 x10^6/uL (3.50-5.40) Hemoglobin 9.4 g/dL (12.0-15.5) Hematocrit 30.3 % (36.0-47.0) Mean Corpuscular Volume 75 fL (79-100) Mean Corpuscular Hemoglobin 23 pg (25-35) Mean Corpuscular Hemoglobin Concent 31 g/dL (31-37) Red Cell Distribution Width 19.7 % (11.5-14.5) Platelet Count 32 x10^3/uL (140-400) Neutrophils (%) (Auto) 52 % (31-73) Lymphocytes (%) (Auto) 30 % (24-48) Monocytes (%) (Auto) 9 % (0-9) Eosinophils (%) (Auto) 8 % (0-3) Basophils (%) (Auto) 1 % (0-3) Neutrophils # (Auto) 0.8 x10^3/uL (1.8-7.7) Lymphocytes # (Auto) 0.5 x10^3/uL (1.0-4.8) Monocytes # (Auto) 0.1 x10^3/uL (0.0-1.1) Eosinophils # (Auto) 0.1 x10^3/uL (0.0-0.7) Basophils # (Auto) 0.0 x10^3/uL (0.0-0.2) Sodium Level 138 mmol/L (136-145) Potassium Level 4.3 mmol/L (3.5-5.1) Chloride Level 106 mmol/L (98-107) Carbon Dioxide Level 28 mmol/L (21-32) Anion Gap 4 (6-14) Blood Urea Nitrogen 10 mg/dL (7-20) Creatinine 1.0 mg/dL (0.6-1.0) Estimated GFR (Cockcroft-Gault) 56.6 BUN/Creatinine Ratio 10 (6-20) Glucose Level 281 mg/dL (70-99) Calcium Level 8.1 mg/dL (8.5-10.1) Ferritin 16 ng/mL (8-252) Total Bilirubin 1.0 mg/dL (0.2-1.0) Aspartate Amino Transf (AST/SGOT) 30 U/L (15-37) Alanine Aminotransferase (ALT/SGPT) 17 U/L (14-59) Alkaline Phosphatase 79 U/L (46-116) Total Protein 5.8 g/dL (6.4-8.2) Albumin 2.0 g/dL (3.4-5.0) Albumin/Globulin Ratio 0.5 (1.0-1.7) Test 06/07/20 09:05 06/07/20 11:55 Vancomycin Level Trough 10.9 mcg/mL (10.0-20.0) Vancomycin Last Dose Date 06/06/2020 Vancomycin Last Dose Time 1500 Glucose (Fingerstick) 286 mg/dL (70-99) Images Images Reviewed CT abdomen and pelvis. Splenomegaly noted. I personally reviewed images Assessment/Plan Assessment/Plan Assessment: Pancytopenia Vulvar cellulitis Nonalcoholic steatohepatitis Type 2 diabetes Recommendations: -I recommended and ordered B12, copper level, iron studies, serum protein electrophoresis, free kappa lambda light chains, LDH, haptoglobin -I suspect that her pancytopenia is secondary to nonalcoholic liver disease and associated splenomegaly. Her CT abdomen shows a significantly enlarged spleen. -Her neutropenia is worse than baseline and I suspect this is secondary to either her acute presentation with cellulitis or Zosyn. -Consider iron replacement by mouth given iron studies indicative of iron deficiency and microcytosis -I recommend continued observation for her pancytopenia. Would not perform bone marrow biopsy at this time -Continue antibiotics for cellulitis per primary physician Mark Jung MD Medical Oncology/Hematology Ph: [phone] ANGUS JUNG MD Jun 07, 2020 12:47
--- NOTE | 2020-06-07 13:16 | CONS ---
DATE OF CONSULTATION: 06/07/2020 REFERRING PHYSICIAN: Dr. Vallecillo. REASON FOR CONSULTATION: Sepsis. HISTORY OF PRESENT ILLNESS: A 60-year-old female with MACDONALD cirrhosis and varices, status post TIPS, pancytopenia, chronic, followed up at the Hematology clinic from , history of hepatic encephalopathy, DVT, anemia, PUD, nephrolithiasis, Jordan's palsy, diabetes, hypothyroidism, bipolar disorder, hypertension, hyperlipidemia, chronic back pain, presented with complaints of groin discomfort, which started 5 days ago with redness and swelling in the vulvar area, going down the thigh mainly over the left side. She was seen in urgent care and was prescribed nystatin powder and doxycycline, wound did not improve, she presented for further evaluation and treatment. The patient does not have any vaginal discharge or bleeding. Denies any fevers, chills, nausea, vomiting, diarrhea, headache, sore throat, difficulty swallowing. The patient denied any hematochezia, melena or rectal bleeding. She did have some burning while she passed urine. The patient denies any history of recent procedure or GUD, white count on admission was 1.4. Hemoglobin of 9.5, platelets of 34, creatinine of 1.2, lactate of 2.3, later on was 1.3. Creatinine of 1.1. The patient was started on IV vancomycin and Zosyn. ID consult has been requested for antibiotic management. The patient denies any history of injury. PAST MEDICAL HISTORY: Liver cirrhosis with MACDONALD with esophageal and gastric varices, portal systemic encephalopathy, PVD, anemia, PUD, nephrolithiasis, Jordan's palsy, diabetes, hypothyroidism, bipolar disorder, hypertension, hyperlipidemia and chronic back pain. PAST SURGICAL HISTORY: Tonsillectomy, TIPS. FAMILY HISTORY: As per HPI. SOCIAL HISTORY: Denies smoking, ETOH, or illicit drug use. Lives with her spouse. REVIEW OF SYSTEMS: Negative except for above in HPI. PHYSICAL EXAMINATION: VITAL SIGNS: Temperature 97.7, pulse 78, respiratory rate 20, blood pressure 133/59, oxygen saturation 98% on 1 liter by nasal cannula. GENERAL: Alert and oriented x 3 female, lying in bed comfortably, in no acute distress. HEENT: Normocephalic, atraumatic, anicteric. NECK: Supple, no JVD. LUNGS: Clear bilaterally. No wheezing. HEART: S1, S2. No gallops or murmurs. ABDOMEN: Soft, nontender, nondistended. GENITOURINARY: Mild swelling over the left vulvar area with erythema going down both medial thighs, left greater than right. No obvious groin lesions noted. No abscess noted. DERMATOLOGIC: Warm, dry. No generalized rash except for above. CENTRAL NERVOUS SYSTEM: Alert and oriented x 3, grossly nonfocal. PSYCHIATRIC: Cooperative, appropriate mood and affect. LABORATORY DATA: WBC 1.5, was 1.4. usually runs between 2 and 3, hemoglobin 9.4, hematocrit 30.3, platelets 32. Sodium 136, potassium 4.3, chloride 105, bicarbonate 26, BUN 12, creatinine 1.1. Lactate was 2.3, now 1.3, glucose 364, and calcium 7.9. Vancomycin trough is 10.9. UA negative. MICRO: Blood culture 06/05 negative. A swab culture positive for gram-negative rods, Gram-positive cocci, few PMNs. IMAGING: Chest x-ray, no radiographic abnormality of cardiopulmonary process. CT abdomen and pelvis air and inflammatory changes seen in the left medial upper thigh. No fluid collection is identified, cirrhotic morphology of liver with TIPS changes, nonocclusive chronic appearing thrombus in the splenic vein. IMPRESSION: 1. Cellulitis, mainly over the left thigh and groin area, some on the right. 2. Pancytopenia, leukopenia slightly worsened than baseline. 3. MACDONALD, status post TIPS. 4. History of varices and encephalopathy. 5. Lactic acidosis, resolved. 6. Diabetes. 7. History of bipolar disorder. RECOMMENDATIONS: 1. Continue empiric IV vancomycin and Zosyn. 2. Add micafungin. 3. Continue local wound care. 4. Follow up labs and cultures. 5. The patient may need WARDROBE COORDINATOR evaluation. 6. Optimal diabetes control. 7. Continue supportive care. 8. Discussed with nursing staff. Thank you for allowing me to participate in this patient's care. If you have any questions, do not hesitate to contact me. ZOILA EUCEDA MD DR: GUEVARA/maty JOB#: [id number] / [id number]
[2020-06-07] MEDS: MICAFUNGIN 100 MG in IV DEXTROSE 5% 100ML 100 ML IV SCH (14:22)
[2020-06-07 15:00] VITALS: BP 153/67
--- NOTE | 2020-06-07 16:34 | NUR ---
Wound/Ostomy Care Wound Type/Assessment: Abscess to left upper thigh with swelling into labial area. Culture obtained per Louise KAUR. Pt refused photo, measurements done. recommend daily flushing of saline or Dakins, Louise will ask Dr Poole which. Treatment Recommendations/Plan: Continue daily flushes Education provided: PU prevention, infection control, wound care POC Offloading surface/device: none Recommended Referrals/Tests: none Discharge Recommendations for dressings: MILTON with daily flushes as long as wound remains open and draining
--- NOTE | 2020-06-07 18:39 | PDOC1 ---
History & Psych Evaluation Date of Service: DOS: DATE: 06/07/20 TIME: 18:27 Source: Source: Caregiver, Chart review, Patient Identification: Identification She is a 60-year-old female with history of bipolar mood disorder Chief Complaint: Chief Complaint Bipolar mood disorder, medication adjustment History of Present Illness: HPI: She is a 60-year-old female with longstanding history of bipolar mood disorder admitted with pancytopenia. Upon interview she appears cooperative and interactive. Stating, she has longstanding history of bipolar mood disorder started at the age of early 20s. Initially she had manic episodes and depressive episodes. However over the time, she started having more depressive episodes. Presently, her bipolar mood disorder appears to be in reasonable remission. States, her depression is better and anxiety is under control. Depression is rated as 3/10 10 is worse. Anxiety is rated as 0/10 10 is worse. Aside from that, she denies any willy or hypomania. Denies auditory or visual hallucinations. Denies use of illicit substance. Denies suicidal or homicidal thoughts. She has previous history of suicidal attempt in the remote past. She is in agreement to restart medications however she is explained regarding Topamax. Past Psychiatric History: History of bipolar mood disorder. History of psychiatric hospital admissions. However, no safe recent psychiatric hospital admission for History of recurrent suicidal ideation and previous suicidal attempt. Denies recent suicidal attempt Past Medical History: Please see medical chart for details Family History: Mother with major depressive disorder. Social History: Social History: She is , lives with her . She denies history of alcohol abuse or illicit substance use. Current Medications: Current Medications Current Medications Medications (Trade) Dose Ordered Sig/Boyd Start Time Stop Time Status Last Admin Dose Admin Acetaminophen/ Hydrocodone Bitart (Lortab 5/325) 1 tab PRN Q4HRS PRN 06/06/20 11:00 06/07/20 17:41 1 TAB Dextrose (Dextrose 50%-Water Syringe) 12.5 gm PRN Q15MIN PRN 06/06/20 13:30 06/06/20 13:39 DC Fish Oil (Fish Oil) 1,000 mg DAILY 06/07/20 09:00 06/07/20 08:20 1,000 MG Hydromorphone HCl (Dilaudid) 1 mg 1X ONCE 06/05/20 18:15 06/05/20 18:16 DC 06/05/20 18:26 1 MG Info (CONTRAST GIVEN -- Rx MONITORING) 1 each PRN DAILY PRN 06/05/20 19:15 06/07/20 19:14 Insulin Glargine (Lantus Syringe) 10 unit QHS 06/07/20 21:00 Insulin Human Lispro (HumaLOG) 0-5 UNITS TIDWMEALS 06/06/20 17:00 06/07/20 17:48 4 UNITS Iohexol (Omnipaque 300 Mg/ml) 60 ml 1X ONCE 06/05/20 19:00 06/05/20 19:07 DC 06/05/20 19:15 60 ML Lactobacillus Rhamnosus (Culturelle) 1 cap BID 06/07/20 21:00 Lactulose (Lactulose) 20 gm TID 06/06/20 14:00 06/07/20 14:21 20 GM Levothyroxine Sodium (Synthroid) 50 mcg DAILY06 06/06/20 15:00 06/07/20 06:16 50 MCG Micafungin Sodium 100 mg/Dextrose 100 ml @ 100 mls/hr Q24H 06/07/20 12:00 06/07/20 14:22 100 MLS/HR Midodrine (Proamatine) 10 mg [id number] 06/06/20 14:30 Morphine Sulfate (Morphine Sulfate) 2 mg PRN Q2HR PRN 06/07/20 00:30 06/07/20 14:33 2 MG Ondansetron HCl (Zofran) 4 mg PRN Q8HRS PRN 06/05/20 20:30 06/06/20 20:29 DC Pantoprazole Sodium (Protonix) 40 mg BIDAC 06/06/20 16:30 06/07/20 17:41 40 MG Piperacillin Sod/ Tazobactam Sod (Zosyn Per Pharmacy) 1 each PRN DAILY PRN 06/06/20 12:45 Piperacillin Sod/ Tazobactam Sod 3.375 gm/Sodium Chloride 50 ml @ 100 mls/hr Q6HRS 06/06/20 13:30 06/07/20 13:45 100 MLS/HR Polyethylene Glycol (miraLAX PACKET) 17 gm PRN DAILY PRN 06/07/20 11:00 Psyllium Hydrophilic Mucilloid (Metamucil Fiber Packet) 1 pkt DAILY 06/07/20 11:00 06/07/20 11:13 1 PKT Rifaximin (Xifaxan) 550 mg BID 06/06/20 15:00 06/07/20 08:20 550 MG Ringer's Solution 1,000 ml @ 2,000 mls/hr 1X ONCE 06/05/20 18:15 06/05/20 18:44 DC 06/05/20 19:00 2,000 MLS/HR Sodium Chloride 1,000 ml @ 70 mls/hr [id number] 06/06/20 01:00 06/07/20 04:19 70 MLS/HR Vancomycin HCl (Vanco Per Pharmacy) 1 each PRN DAILY PRN 06/06/20 12:45 06/07/20 11:53 1 EACH Vancomycin HCl (Vancomycin Trough Level) 1 each 1X ONCE 06/07/20 08:30 06/07/20 08:31 DC 06/07/20 08:20 1 EACH Vancomycin HCl 1.75 gm/Sodium Chloride 500 ml @ 250 mls/hr Q18H 06/06/20 15:00 06/07/20 11:14 250 MLS/HR Vancomycin HCl 2 gm/Sodium Chloride 500 ml @ 250 mls/hr 1X ONCE 06/05/20 20:30 06/05/20 22:29 DC 06/05/20 20:53 250 MLS/HR Allergies: Allergies: Coded Allergies: lorazepam (Verified Allergy, Severe, Rash, 12/09/19) risperidone (Verified Allergy, Severe, 06/07/20) Patient's card reads "Asymptomatic reaction" ziprasidone (Verified Allergy, Severe, 06/07/20) Patient's card reads "Asymptomatic reaction" chlorpromazine (Verified Allergy, Intermediate, 06/07/20) Patient's card reads "Asymptomatic reaction" morphine (Verified Allergy, Intermediate, 06/07/20) Patient's card reads -"May have BiPolar Symptoms if taken for a ling time." Mental Status Examination: Mental Status Examination 60-year-old female appears her stated age Cooperative and interactive Alert and oriented Thought processes goal-directed Denies auditory or visual hallucinations no abnormal perception noted. Denies suicidal or homicidal thoughts. Mood is okay Affect is constricted Insight is fair Judgment is fair Impulse control is fair attention span and concentration fair Recent and remote memory intact ROS: 14 point review of system is otherwise negative except for stated above Physical Exam: Refer to Physician's note. POOL FINISHER: No focal deficit MSK: No EPS, TDK, or abnormal involuntary movements Vitals: Vitals Vital Signs Date Time Temp Pulse Resp B/P (MAP) Pulse Ox O2 Delivery O2 Flow Rate FiO2 06/07/20 17:41 Room Air 06/07/20 17:33 85 153/67 06/07/20 15:00 98.0 20 93 2.0 98.0 Labs: Labs Laboratory Tests Test 06/05/20 19:39 06/05/20 21:45 06/06/20 01:04 06/06/20 08:11 Urine Collection Type Unknown Urine Color Yellow Urine Clarity Clear Urine pH 6.5 (<5.0-8.0) Urine Specific [place] >=1.030 (1.000-1.030) Urine Protein 100 mg/dL (NEG-TRACE) Urine Glucose (UA) >=1000 mg/dL (NEG) Urine Ketones (Stick) Negative mg/dL (NEG) Urine Blood Moderate (NEG) Urine Nitrite Negative (NEG) Urine Bilirubin Negative (NEG) Urine Urobilinogen Dipstick 1.0 mg/dL (0.2 mg/dL) Urine Leukocyte Esterase Negative (NEG) Urine RBC 6-10 /HPF (0-2) Urine WBC 1-4 /HPF (0-4) Urine Squamous Epithelial Cells Occ /LPF Urine Bacteria Few /HPF (0-FEW) Lactic Acid Level 1.3 mmol/L (0.4-2.0) Glucose (Fingerstick) 393 mg/dL (70-99) 286 mg/dL (70-99) Test 06/06/20 09:25 06/06/20 12:03 06/06/20 16:47 06/06/20 22:21 White Blood Count 1.4 x10^3/uL (4.0-11.0) Red Blood Count 4.13 x10^6/uL (3.50-5.70) Hemoglobin 9.5 g/dL (12.0-15.5) Hematocrit 30.6 % (36.0-47.0) Mean Corpuscular Volume 75 fL (79-100) Mean Corpuscular Hemoglobin 23 pg (25-35) Mean Corpuscular Hemoglobin Concent 31 g/dL (31-37) Red Cell Distribution Width 19.5 % (11.5-14.5) Platelet Count 34 x10^3/uL (140-400) Neutrophils (%) (Auto) 56 % (31-73) Lymphocytes (%) (Auto) 27 % (24-48) Monocytes (%) (Auto) 7 % (0-9) Eosinophils (%) (Auto) 9 % (0-3) Basophils (%) (Auto) 1 % (0-3) Neutrophils # (Auto) 0.8 x10^3/uL (1.8-7.7) Lymphocytes # (Auto) 0.4 x10^3/uL (1.0-4.8) Monocytes # (Auto) 0.1 x10^3/uL (0.0-1.1) Eosinophils # (Auto) 0.1 x10^3/uL (0.0-0.7) Basophils # (Auto) 0.0 x10^3/uL (0.0-0.2) Segmented Neutrophils % 53 % (35-66) Band Neutrophils % 1 % (0-9) Lymphocytes % 30 % (24-48) Monocytes % 6 % (0-10) Eosinophils % 9 % (0-5) Basophils % 1 % (0-3) Platelet Estimate Decreased (ADEQUATE) Hypochromasia Present Microcytosis Present Absolute Reticulocyte Count 0.133 x10^6/uL (0.020-0.120) Percent Reticulocyte Count 3.2 % (0.5-2.3) Immature Reticulocyte Fraction 0.37 (0.20-0.60) Sodium Level 136 mmol/L (136-145) Potassium Level 4.3 mmol/L (3.5-5.1) Chloride Level 105 mmol/L (98-107) Carbon Dioxide Level 26 mmol/L (21-32) Anion Gap 5 (6-14) Blood Urea Nitrogen 12 mg/dL (7-20) Creatinine 1.1 mg/dL (0.6-1.0) Estimated GFR (Cockcroft-Gault) 50.7 Glucose Level 364 mg/dL (70-99) Uric Acid 3.4 mg/dL (2.6-6.0) Calcium Level 7.9 mg/dL (8.5-10.1) Iron Level 24 ug/dL (50-170) Total Iron Binding Capacity 324 ug/dL (250-450) Iron Saturation 7 % (15-34) Lactate Dehydrogenase 265 U/L (81-234) Vitamin B12 Level 1052 pg/mL (247-911) Glucose (Fingerstick) 307 mg/dL (70-99) 259 mg/dL (70-99) 255 mg/dL (70-99) Test 06/07/20 05:30 06/07/20 07:45 06/07/20 09:05 06/07/20 11:55 White Blood Count 1.5 x10^3/uL (4.0-11.0) Red Blood Count 4.06 x10^6/uL (3.50-5.40) Hemoglobin 9.4 g/dL (12.0-15.5) Hematocrit 30.3 % (36.0-47.0) Mean Corpuscular Volume 75 fL (79-100) Mean Corpuscular Hemoglobin 23 pg (25-35) Mean Corpuscular Hemoglobin Concent 31 g/dL (31-37) Red Cell Distribution Width 19.7 % (11.5-14.5) Platelet Count 32 x10^3/uL (140-400) Neutrophils (%) (Auto) 52 % (31-73) Lymphocytes (%) (Auto) 30 % (24-48) Monocytes (%) (Auto) 9 % (0-9) Eosinophils (%) (Auto) 8 % (0-3) Basophils (%) (Auto) 1 % (0-3) Neutrophils # (Auto) 0.8 x10^3/uL (1.8-7.7) Lymphocytes # (Auto) 0.5 x10^3/uL (1.0-4.8) Monocytes # (Auto) 0.1 x10^3/uL (0.0-1.1) Eosinophils # (Auto) 0.1 x10^3/uL (0.0-0.7) Basophils # (Auto) 0.0 x10^3/uL (0.0-0.2) Sodium Level 138 mmol/L (136-145) Potassium Level 4.3 mmol/L (3.5-5.1) Chloride Level 106 mmol/L (98-107) Carbon Dioxide Level 28 mmol/L (21-32) Anion Gap 4 (6-14) Blood Urea Nitrogen 10 mg/dL (7-20) Creatinine 1.0 mg/dL (0.6-1.0) Estimated GFR (Cockcroft-Gault) 56.6 BUN/Creatinine Ratio 10 (6-20) Glucose Level 281 mg/dL (70-99) Calcium Level 8.1 mg/dL (8.5-10.1) Ferritin 16 ng/mL (8-252) Total Bilirubin 1.0 mg/dL (0.2-1.0) Aspartate Amino Transf (AST/SGOT) 30 U/L (15-37) Alanine Aminotransferase (ALT/SGPT) 17 U/L (14-59) Alkaline Phosphatase 79 U/L (46-116) Total Protein 5.8 g/dL (6.4-8.2) Albumin 2.0 g/dL (3.4-5.0) Albumin/Globulin Ratio 0.5 (1.0-1.7) Glucose (Fingerstick) 273 mg/dL (70-99) 286 mg/dL (70-99) Vancomycin Level Trough 10.9 mcg/mL (10.0-20.0) Vancomycin Last Dose Date 06/06/2020 Vancomycin Last Dose Time 1500 Test 06/07/20 16:31 Glucose (Fingerstick) 292 mg/dL (70-99) Laboratory Tests Test 06/06/20 22:21 06/07/20 05:30 06/07/20 07:45 06/07/20 09:05 Glucose (Fingerstick) 255 mg/dL (70-99) 273 mg/dL (70-99) White Blood Count 1.5 x10^3/uL (4.0-11.0) Red Blood Count 4.06 x10^6/uL (3.50-5.40) Hemoglobin 9.4 g/dL (12.0-15.5) Hematocrit 30.3 % (36.0-47.0) Mean Corpuscular Volume 75 fL (79-100) Mean Corpuscular Hemoglobin 23 pg (25-35) Mean Corpuscular Hemoglobin Concent 31 g/dL (31-37) Red Cell Distribution Width 19.7 % (11.5-14.5) Platelet Count 32 x10^3/uL (140-400) Neutrophils (%) (Auto) 52 % (31-73) Lymphocytes (%) (Auto) 30 % (24-48) Monocytes (%) (Auto) 9 % (0-9) Eosinophils (%) (Auto) 8 % (0-3) Basophils (%) (Auto) 1 % (0-3) Neutrophils # (Auto) 0.8 x10^3/uL (1.8-7.7) Lymphocytes # (Auto) 0.5 x10^3/uL (1.0-4.8) Monocytes # (Auto) 0.1 x10^3/uL (0.0-1.1) Eosinophils # (Auto) 0.1 x10^3/uL (0.0-0.7) Basophils # (Auto) 0.0 x10^3/uL (0.0-0.2) Sodium Level 138 mmol/L (136-145) Potassium Level 4.3 mmol/L (3.5-5.1) Chloride Level 106 mmol/L (98-107) Carbon Dioxide Level 28 mmol/L (21-32) Anion Gap 4 (6-14) Blood Urea Nitrogen 10 mg/dL (7-20) Creatinine 1.0 mg/dL (0.6-1.0) Estimated GFR (Cockcroft-Gault) 56.6 BUN/Creatinine Ratio 10 (6-20) Glucose Level 281 mg/dL (70-99) Calcium Level 8.1 mg/dL (8.5-10.1) Ferritin 16 ng/mL (8-252) Total Bilirubin 1.0 mg/dL (0.2-1.0) Aspartate Amino Transf (AST/SGOT) 30 U/L (15-37) Alanine Aminotransferase (ALT/SGPT) 17 U/L (14-59) Alkaline Phosphatase 79 U/L (46-116) Total Protein 5.8 g/dL (6.4-8.2) Albumin 2.0 g/dL (3.4-5.0) Albumin/Globulin Ratio 0.5 (1.0-1.7) Vancomycin Level Trough 10.9 mcg/mL (10.0-20.0) Vancomycin Last Dose Date 06/06/2020 Vancomycin Last Dose Time 1500 Test 06/07/20 11:55 06/07/20 16:31 Glucose (Fingerstick) 286 mg/dL (70-99) 292 mg/dL (70-99) Diagnosis: Diagnosis: Bipolar mood disorder 1, most recent episode depressed in partial remission Generalized anxiety disorder Assessment: She is a 60-year-old female with history of bipolar mood disorder 1, with most recent episode depressed apparently and partial remission. She has lifelong history of bipolar mood disorder with most recent episode depressive for the most part. She reports reasonable stability with current regimen of bupropion and Topamax. Plan: With given pancytopenia, options of psychotropics are limited. In case of worsening depression she can be restarted. However for mood stability, antiepileptics are associated with bone marrow suppression including Topamax. Avoid Topamax. Risks, benefits, alternatives of the treatment and no treatment are discussed. Adverse drug reaction of the medications including Topamax and Wellbutrin are also discussed. Monitor for symptomatology, safety, and adverse drug reaction. Thank you for involving inpatient care for KAMILLA TIRADO MD Jun 07, 2020 18:39
[2020-06-07 19:00] VITALS: BP 144/67
[2020-06-07] MEDS: LACTOBACILLUS RHAMNOSUS GG 1 CAPSULE. PO SCH (20:45)
[2020-06-07] MEDS: POLYETHYLENE GLYCOL 3350 17 GM PACKET. PO SCH (20:51)
[2020-06-07] MEDS: INSULIN GLARGINE SYRINGE. SQ SCH (20:51)
[2020-06-07 23:00] VITALS: BP 156/67
[2020-06-08] VITALS (10 sets, daily range): BP systolic 124–167; BP diastolic 45–82
[2020-06-08] MEDS: MORPHINE SULFATE 2 MG/ML VIAL. IV PRN ×4 (02:05→19:09)
[2020-06-08] MEDS: VANCOMYCIN 1.75 GM in IV NORMAL SALINE 500ML BAG 500 ML IV SCH ×2 (02:06→20:31)
[2020-06-08] MEDS: PIPERACILLIN/TAZOBACTAM 3.375 GM in IV NORMAL SALINE 50ML 50 ML IV SCH ×4 (05:29→23:12)
[2020-06-08] MEDS: MIDODRINE 5 MG TABLET PO SCH ×3 (05:29→17:10)
[2020-06-08] MEDS: LEVOTHYROXINE 50 MCG TABLET PO SCH (05:30)
[2020-06-08] MEDS: PANTOPRAZOLE 40 MG TABLET.DR. PO SCH ×2 (05:30→17:27)
[2020-06-08 05:41] LABS: GFR 56.6
[2020-06-08] MEDS: INSULIN LISPRO 300 UNITS/3 ML VIAL. SQ SCH ×3 (08:00→17:00)
[2020-06-08] MEDS: OMEGA-3 FATTY ACIDS/FISH OIL 1,000 MG CAPSULE. PO SCH (09:00)
[2020-06-08] MEDS: LACTULOSE 20 GM/30 ML SOLUTION. PO SCH ×3 (09:00→20:31)
[2020-06-08] MEDS: PSYLLIUM HUSK (SUGAR FREE) 1 PKT PACKET PO SCH (09:00)
[2020-06-08] MEDS: LACTOBACILLUS RHAMNOSUS GG 1 CAPSULE. PO SCH ×2 (09:00→20:31)
[2020-06-08] MEDS: POLYETHYLENE GLYCOL 3350 17 GM PACKET. PO SCH ×3 (09:00→19:05)
[2020-06-08] MEDS: rifAXIMin 550 MG TABLET PO SCH ×2 (09:00→20:32)
--- NOTE | 2020-06-08 09:08 | PDOC ---
Infectious Disease Note Subjective: Subjective pt cont to feel the same awaiting surgery later today Vital Signs: Vital Signs Vital Signs Date Time Temp Pulse Resp B/P (MAP) Pulse Ox O2 Delivery O2 Flow Rate FiO2 06/08/20 07:00 16 Room Air 06/08/20 03:00 98.6 99 167/82 (110) 91 98.6 06/07/20 15:00 2.0 Physical Exam: PHYSICAL EXAM GENERAL: Alert and oriented x 3 female, lying in bed comfortably, in no acute distress. HEENT: Normocephalic, atraumatic, anicteric. NECK: Supple, no JVD. LUNGS: Clear bilaterally. No wheezing. HEART: S1, S2. No gallops or murmurs. ABDOMEN: Soft, nontender, nondistended. GENITOURINARY: swelling over the left vulvar area with erythema going down both medial thighs, left greater than right. Lt vulvar induration, tenderness DERMATOLOGIC: Warm, dry. No generalized rash except for above. CENTRAL NERVOUS SYSTEM: Alert and oriented x 3, grossly nonfocal. PSYCHIATRIC: Cooperative, appropriate mood and affect. Medications: Inpatient Meds: Current Medications Medications (Trade) Dose Ordered Sig/Boyd Start Time Stop Time Status Last Admin Dose Admin Acetaminophen/ Hydrocodone Bitart (Lortab 5/325) 1 tab PRN Q4HRS PRN 06/06/20 11:00 06/07/20 23:33 1 TAB Dextrose (Dextrose 50%-Water Syringe) 12.5 gm PRN Q15MIN PRN 06/06/20 13:30 06/06/20 13:39 DC Fish Oil (Fish Oil) 1,000 mg DAILY 06/07/20 09:00 06/07/20 08:20 1,000 MG Hydromorphone HCl (Dilaudid) 1 mg 1X ONCE 06/05/20 18:15 06/05/20 18:16 DC 06/05/20 18:26 1 MG Info (CONTRAST GIVEN -- Rx MONITORING) 1 each PRN DAILY PRN 06/05/20 19:15 06/07/20 19:14 DC Insulin Glargine (Lantus Syringe) 10 unit QHS 06/07/20 21:00 06/07/20 20:51 10 UNIT Insulin Human Lispro (HumaLOG) 0-5 UNITS TIDWMEALS 06/06/20 17:00 06/07/20 17:48 4 UNITS Iohexol (Omnipaque 300 Mg/ml) 60 ml 1X ONCE 06/05/20 19:00 06/05/20 19:07 DC 06/05/20 19:15 60 ML Lactobacillus Rhamnosus (Culturelle) 1 cap BID 06/07/20 21:00 06/07/20 20:45 1 CAP Lactulose (Lactulose) 20 gm TID 06/06/20 14:00 06/07/20 20:45 20 GM Levothyroxine Sodium (Synthroid) 50 mcg DAILY06 06/06/20 15:00 06/08/20 05:30 50 MCG Micafungin Sodium 100 mg/Dextrose 100 ml @ 100 mls/hr Q24H 06/07/20 12:00 06/07/20 14:22 100 MLS/HR Midodrine (Proamatine) 10 mg [id number] 06/06/20 14:30 Morphine Sulfate (Morphine Sulfate) 2 mg PRN Q2HR PRN 06/07/20 00:30 06/08/20 06:31 2 MG Ondansetron HCl (Zofran) 4 mg PRN Q8HRS PRN 06/05/20 20:30 06/06/20 20:29 DC Pantoprazole Sodium (Protonix) 40 mg BIDAC 06/06/20 16:30 06/08/20 05:30 40 MG Piperacillin Sod/ Tazobactam Sod (Zosyn Per Pharmacy) 1 each PRN DAILY PRN 06/06/20 12:45 Piperacillin Sod/ Tazobactam Sod 3.375 gm/Sodium Chloride 50 ml @ 100 mls/hr Q6HRS 06/06/20 13:30 06/08/20 05:29 100 MLS/HR Polyethylene Glycol (miraLAX PACKET) 17 gm PRN DAILY PRN 06/07/20 11:00 Psyllium Hydrophilic Mucilloid (Metamucil Fiber Packet) 1 pkt DAILY 06/07/20 11:00 06/07/20 11:13 1 PKT Rifaximin (Xifaxan) 550 mg BID 06/06/20 15:00 06/07/20 20:45 550 MG Ringer's Solution 1,000 ml @ 2,000 mls/hr 1X ONCE 06/05/20 18:15 06/05/20 18:44 DC 06/05/20 19:00 2,000 MLS/HR Sodium Chloride 1,000 ml @ 70 mls/hr [id number] 06/06/20 01:00 06/07/20 20:45 70 MLS/HR Vancomycin HCl (Vanco Per Pharmacy) 1 each PRN DAILY PRN 06/06/20 12:45 06/07/20 11:53 1 EACH Vancomycin HCl (Vancomycin Trough Level) 1 each 1X ONCE 06/07/20 08:30 06/07/20 08:31 DC 06/07/20 08:20 1 EACH Vancomycin HCl 1.75 gm/Sodium Chloride 500 ml @ 250 mls/hr Q18H 06/06/20 15:00 06/08/20 02:06 250 MLS/HR Vancomycin HCl 2 gm/Sodium Chloride 500 ml @ 250 mls/hr 1X ONCE 06/05/20 20:30 06/05/20 22:29 DC 06/05/20 20:53 250 MLS/HR Labs: Lab Laboratory Tests Test 06/07/20 11:55 06/07/20 16:31 06/07/20 20:44 06/08/20 04:35 Glucose (Fingerstick) 286 mg/dL (70-99) 292 mg/dL (70-99) 294 mg/dL (70-99) Creatinine 1.0 mg/dL (0.6-1.0) Estimated GFR (Cockcroft-Gault) 56.6 Micro MIXED AEROBIC SOPHIA on 06/07/20 at 1324 INCLUDING: MODERATE [ESCHERICHIA COLI] MODERATE [BETA STREP GROUP B] MODERATE [ENTEROCOCCUS FAECALIS] ESCHERICHIA COLI ENTEROCOCCUS FAECALIS BETA STREP GROUP B Objective: Assessment: 1. Cellulitis/abscess Lt vulvar area, Cellulitis over the left thigh and groin area, some on the right. cults positive for e coli, enterococcus fecalis and grp b strep 2. Pancytopenia, leukopenia hematology following 3. History of MACDONALD, status post TIPS. 4. History of varices and encephalopathy. 5. Lactic acidosis, resolved. 6. Diabetes. 7. History of bipolar disorder. Plan: Plan of Care 1. Continue empiric IV vancomycin and Zosyn. Monitor renal functions closely 2. cont micafungin. 3. Awaiting surgical I&D , send intraoperative fluid or tissue for cultures 4. Follow up labs and cultures. 5. Local care as directed 6. Continue supportive care. 7. PRECISION AGRONOMIST, general surgery and hematology following Discussed with ZOILA Puckett MD Jun 08, 2020 09:07
--- NOTE | 2020-06-08 09:13 | PDOC ---
[facility] PROGRESS NOTE Date of Service DOS: DATE: 06/08/20 TIME: 09:12 Chief Complaint Chief Complaint A/P: Cellulitis of groin and labia -ID consulted, vancomycin and Zosyn therapy for now. Topical antifungal. Sepsis -due to cellulitis of groin failing outpatient therapy Severe protein calorie malnutrition -likely secondary to cirrhosis, will consult dietitian Pancytopenia -noted previously, her anemia and thrombocytopenia can be explained with her cirrhosis, her leukopenia however is not clear in its etiology. Diabetes -will place on insulin therapy while inpatient. Hold metformin. MACDONALD -with cirrhosis status post TIPS. Bipolar disease -we will consult psychiatry for medication recommendations. Hypothyroidism -continue levothyroxine Morbid obesity -counseled on weight loss techniques History of Present Illness History of Present Illness Ms Ashraf is a 59-year-old female with a history of diabetes, MACDONALD with cirrhosis s/p TIPS, bipolar disease, hypothyroidism, anemia, thrombocytopenia, and morbid obesity admitted with rash, neutropenia who presents with a chief complaint of groin discomfort. Patient states over the past 5 days she has had redness and swelling to her vulvar region. She stated 5 days ago she was seen in urgent care and prescribed nystatin powder and doxycycline for an infection, but did not seem to improve. No vaginal discharge or bleeding and denies any pain with bowel movement. She does note some burning sensation when she urinates. Noted with pancytopenia WBC 1.5, platelets 32, Hb 9.4 albumin 2, glucose 281. Admitted for failure of outpatient antibiotic therapy for groin cellulitis on vancomycin and Zosyn. 06/07: Afebrile. No BM last day despite her lactulose dosing.Pain is controlled with IV morphine. She does not feel her groin is improving. Afebrile. Had a small BM this morning. Some more drainage from left perineal area, had surgical evaluation, plan for I&D today pending rapid COVID testing. Vitals/I&O Vitals/I&O: Vital Signs Date Time Temp Pulse Resp B/P (MAP) Pulse Ox O2 Delivery O2 Flow Rate FiO2 06/08/20 07:00 98.2 90 17 158/70 (99) 92 Room Air 98.2 06/07/20 15:00 2.0 I & O 06/07/20 06/07/20 06/08/20 15:00 23:00 07:00 Intake Total 560 ml 1350 ml 960 ml Balance 560 ml 1350 ml 960 ml Physical Exam Physical Exam: GENERAL: Alert and oriented x 3 female, lying in bed comfortably, in no acute distress. HEENT: Normocephalic, atraumatic, anicteric. NECK: Supple, no JVD. LUNGS: Clear bilaterally. No wheezing. HEART: S1, S2. No gallops or murmurs. ABDOMEN: Soft, nontender, nondistended. GENITOURINARY: Mild swelling over the left vulvar area with erythema going down both medial thighs, left greater than right. No obvious groin lesions noted. No abscess noted. DERMATOLOGIC: Warm, dry. No generalized rash except for above. CENTRAL NERVOUS SYSTEM: Alert and oriented x 3, grossly nonfocal. PSYCHIATRIC: Cooperative, appropriate mood and affect. General: Alert, Oriented X3 Heart: Regular rate Lungs: Clear Abdomen: Normal bowel sounds, Soft, Other (Palpable splenomegaly) Extremities: No clubbing Skin: No rashes Labs Labs: Laboratory Tests Test 06/07/20 11:55 06/07/20 16:31 06/07/20 20:44 06/08/20 04:35 Glucose (Fingerstick) 286 mg/dL (70-99) 292 mg/dL (70-99) 294 mg/dL (70-99) Creatinine 1.0 mg/dL (0.6-1.0) Estimated GFR (Cockcroft-Gault) 56.6 Assessment and Plan Assessmemt and Plan Problems Medical Problems: (1) Cellulitis, perineum Status: Acute (2) MACDONALD (nonalcoholic steatohepatitis) Status: Acute Comment Review of Relevant I have reviewed the following items tano (where applicable) has been applied. Medications: Current Medications Medications (Trade) Dose Ordered Sig/Boyd Route PRN Reason Start Time Stop Time Status Last Admin Dose Admin Psyllium Hydrophilic Mucilloid (Metamucil Fiber Packet) 1 pkt DAILY PO 06/07/20 11:00 06/07/20 11:13 Insulin Glargine (Lantus Syringe) 10 unit QHS SQ 06/07/20 21:00 06/07/20 20:51 Micafungin Sodium 100 mg/Dextrose 100 ml @ 100 mls/hr Q24H IV 06/07/20 12:00 06/07/20 14:22 Lactobacillus Rhamnosus (Culturelle) 1 cap BID PO 06/07/20 21:00 06/07/20 20:45 Justifications for Admission Other Justification MERARI CARDOSO MD Jun 08, 2020 09:13
[2020-06-08] MEDS ORDERED: IV RINGERS,LACTATED 1000ML 1,000 ML IV SCH ×2 (09:52→13:07)
--- NOTE | 2020-06-08 09:52 | PDOC2 ---
GARRETT GORDON VIRTUALIZATION ENGINEER 06/08/20 0952: CONSULT Date of Consult Date of Consult DATE: 06/08/20 TIME: 09:38 Reason for Consult Reason for Consult: groin abscess Referring Physician Referring Physician: Dr Poole Identification/Chief Complaint Chief Complaint groin pain Source Source: Chart review, Patient History of Present Illness Reason for Visit: Reports 1 week hx of swelling to perineal area - treated with cream prior to coming, it did not get any better. 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--worsened with cellulitis Past Medical History Hepatobiliary: Other Psych: Bipolar Endocrine: Diabetes, Hypothyroidism Past Surgical History Past Surgical History: Other (TIPS) Family History Family History: High Cholestrol, Hypertension Social History No ALCOHOL: none Drugs: None Current Problem List Problem List Problems Medical Problems: (1) Cellulitis, perineum Status: Acute (2) MCLEAN (nonalcoholic steatohepatitis) Status: Acute Current Medications Current Medications Current Medications Ringer's Solution 1,000 ml @ 2,000 mls/hr 1X ONCE IV Last administered on 06/05/20at 19:00; Start 06/05/20 at 18:15; Stop 06/05/20 at 18:44; Status DC Hydromorphone HCl (Dilaudid) 1 mg 1X ONCE IV Last administered on 06/05/20at 18:26; Start 06/05/20 at 18:15; Stop 06/05/20 at 18:16; Status DC Ondansetron HCl (Zofran) 4 mg 1X ONCE IVP Last administered on 06/05/20at 18:25; Start 06/05/20 at 18:15; Stop 06/05/20 at 18:16; Status DC Iohexol (Omnipaque 300 Mg/ml) 60 ml 1X ONCE IV Last administered on 06/05/20at 19:15; Start 06/05/20 at 19:00; Stop 06/05/20 at 19:07; Status DC Info (CONTRAST GIVEN -- Rx MONITORING) 1 each PRN DAILY PRN MC SEE COMMENTS; Start 06/05/20 at 19:15; Stop 06/07/20 at 19:14; Status DC Vancomycin HCl 2 gm/Sodium Chloride 500 ml @ 250 mls/hr 1X ONCE IV Last administered on 06/05/20at 20:53; Start 06/05/20 at 20:30; Stop 06/05/20 at 22:29; Status DC Piperacillin Sod/ Tazobactam Sod 3.375 gm/Sodium Chloride 50 ml @ 100 mls/hr 1X ONCE IV Last administered on 06/05/20at 20:16; Start 06/05/20 at 20:00; Stop 06/05/20 at 20:29; Status DC Ondansetron HCl (Zofran) 4 mg PRN Q8HRS PRN IV NAUSEA/VOMITING; Start 06/05/20 at 20:30; Stop 06/06/20 at 20:29; Status DC Morphine Sulfate (Morphine Sulfate) 4 mg PRN Q2HR PRN IV PAIN Last administered on 06/06/20at 19:59; Start 06/05/20 at 20:30; Stop 06/06/20 at 20:29; Status DC Sodium Chloride 1,000 ml @ 1,500 mls/hr 1X ONCE IV Last administered on 06/05/20at 20:52; Start 06/05/20 at 20:30; Stop 06/05/20 at 21:09; Status DC Insulin Human Lispro (HumaLOG) 0-7 UNITS TIDWMEALS SQ Last administered on 06/06/20at 12:25; Start 06/06/20 at 08:00; Stop 06/06/20 at 13:39; Status DC Dextrose (Dextrose 50%-Water Syringe) 12.5 gm PRN Q15MIN PRN IV SEE COMMENTS; Start 06/06/20 at 01:00 Sodium Chloride 1,000 ml @ 70 mls/hr [id number] IV Last administered on 06/07/20at 20:45; Start 06/06/20 at 01:00 Insulin Human Lispro (HumaLOG) 4 units 1X ONCE SQ Last administered on 06/06/20at 01:49; Start 06/06/20 at 01:30; Stop 06/06/20 at 01:31; Status DC Acetaminophen/ Hydrocodone Bitart (Lortab 5/325) 1 tab PRN Q4HRS PRN PO MILD TO MODERATE PAIN Last administered on 06/07/20at 23:33; Start 06/06/20 at 11:00 Vancomycin HCl (Vanco Per Pharmacy) 1 each PRN DAILY PRN MC SEE COMMENTS Last administered on 06/07/20at 11:53; Start 06/06/20 at 12:45 Piperacillin Sod/ Tazobactam Sod (Zosyn Per Pharmacy) 1 each PRN DAILY PRN MC SEE COMMENTS; Start 06/06/20 at 12:45 Piperacillin Sod/ Tazobactam Sod 3.375 gm/Sodium Chloride 50 ml @ 100 mls/hr Q6HRS IV Last administered on 06/08/20at 05:29; Start 06/06/20 at 13:30 Vancomycin HCl 1.75 gm/Sodium Chloride 500 ml @ 250 mls/hr Q18H IV Last administered on 06/08/20at 02:06; Start 06/06/20 at 15:00 Vancomycin HCl (Vancomycin Trough Level) 1 each 1X ONCE MC Last administered on 06/07/20at 08:20; Start 06/07/20 at 08:30; Stop 06/07/20 at 08:31; Status DC Lactulose (Lactulose) 20 gm TID PO Last administered on 06/07/20at 20:45; Start 06/06/20 at 14:00 Fish Oil (Fish Oil) 1,000 mg DAILY PO Last administered on 06/07/20at 08:20; Start 06/07/20 at 09:00 Pantoprazole Sodium (Protonix) 40 mg BIDAC PO Last administered on 06/08/20at 05:30; Start 06/06/20 at 16:30 Polyethylene Glycol (miraLAX PACKET) 17 gm TID PO ; Start 06/07/20 at 21:00 Rifaximin (Xifaxan) 550 mg BID PO Last administered on 06/07/20at 20:45; Start 06/06/20 at 15:00 Midodrine (Proamatine) 10 mg [id number] PO ; Start 06/06/20 at 14:30 Levothyroxine Sodium (Synthroid) 50 mcg DAILY06 PO Last administered on 06/08/20a t 05:30; Start 06/06/20 at 15:00 Insulin Human Lispro (HumaLOG) 0-5 UNITS TIDWMEALS SQ Last administered on 06/07/20at 17:48; Start 06/06/20 at 17:00 Dextrose (Dextrose 50%-Water Syringe) 12.5 gm PRN Q15MIN PRN IV SEE COMMENTS; Start 06/06/20 at 13:30; Stop 06/06/20 at 13:39; Status DC Morphine Sulfate (Morphine Sulfate) 2 mg PRN Q2HR PRN IV SEVERE PAIN 7-10 Last administered on 06/08/20at 06:31; Start 06/07/20 at 00:30 Psyllium Hydrophilic Mucilloid (Metamucil Fiber Packet) 1 pkt DAILY PO Last administered on 06/07/20at 11:13; Start 06/07/20 at 11:00 Polyethylene Glycol (miraLAX PACKET) 17 gm PRN DAILY PRN PO CONSTIPATION; Start 06/07/20 at 11:00 Insulin Glargine (Lantus Syringe) 10 unit QHS SQ Last administered on 06/07/20at 20:51; Start 06/07/20 at 21:00 Micafungin Sodium 100 mg/Dextrose 100 ml @ 100 mls/hr Q24H IV Last administered on 06/07/20at 14:22; Start 06/07/20 at 12:00 Lactobacillus Rhamnosus (Culturelle) 1 cap BID PO Last administered on 06/07/20at 20:45; Start 06/07/20 at 21:00 Active Scripts Active Reported Trazodone Hcl 50 Mg Tablet 50 Mg PO DAILY Fish Oil 1,000 Mg Softgel ([place]-3 Fatty Acids/Fish Oil) 1 Each Capsule 1 Cap PO DAILY 30 Days Victoza 3-Perez (Liraglutide) 0.6 Mg/0.1 Ml Pen.injctr 1.2 Mg SQ DAILY Bupropion Hcl Sr (Bupropion Hcl) 100 Mg Tablet.er 100 Mg PO DAILY Xifaxan (Rifaximin) 550 Mg Tablet 1 Tab PO BID 10 Days Topiramate 100 Mg Tablet 100 Mg PO DAILY Pantoprazole Sodium (Pantoprazole Sodium) 40 Mg Tablet.dr 40 Mg PO BIDAC Midodrine Hcl 10 Mg Tablet 10 Mg PO TID Glycolax (Polyethylene Glycol 3350) 119 Gm Powder 17 Gm PO TID Take according to instructions on printed sheet Lactulose 20 Gm/30 Ml Solution 20 Gm PO TID Levothyroxine Sodium Unknown Strength Tablet 0.5 PO DAILY Metformin Hcl Unknown Strength Tablet 500 PO BIDWMEALS Allergies Allergies: Coded Allergies: lorazepam (Verified Allergy, Severe, Rash, 12/09/19) risperidone (Verified Allergy, Severe, 06/07/20) Patient's card reads "Asymptomatic reaction" ziprasidone (Verified Allergy, Severe, 06/07/20) Patient's card reads "Asymptomatic reaction" chlorpromazine (Verified Allergy, Intermediate, 06/07/20) Patient's card reads "Asymptomatic reaction" morphine (Verified Allergy, Intermediate, 06/07/20) Patient's card reads -"May have BiPolar Symptoms if taken for a ling time." ROS General: No: Chills, Other (fevers ) PSYCHOLOGICAL ROS: No: Anxiety, Depression Eyes: No Blurry vision, No Double vision HEENT: No: Heacaches, Sore Throat Hematological and Lymphatic: YES: Bleeding Problems; No: Blood Clots Respiratory: No: Cough, Shortness of breath Cardiovascular: No Chest Pain, No Palpitations Gastrointestinal: No Nausea, No Vomiting Genitourinary: YES Dysuria; No Hematuria Musculoskeletal: Yes Muscle Pain; No Joint Pain Neurological: No Impaired Coord/balance, No Numbness/Tingling Skin: Yes Other (see hpi) Physical Exam General: Alert, Oriented X3, Cooperative HEENT: Atraumatic, PERRLA Lungs: Clear to auscultation, Normal air movement Heart: Regular rate, Normal S1, Normal S2 Abdomen: Soft, Other (obese, ND, NTTP) Extremities: No clubbing, No cyanosis Skin: Other (left groin/thigh area to perineal area with induration, erythema, tenderness, 2 small open wounds, no current drainage, swelling extends up to labia--right thigh area, minimal erythema, noted pustule right labia) Neuro: Normal speech, Sensation intact Psych/Mental Status: Mental status NL, Mood NL Vitals VITALS Vital Signs Date Time Temp Pulse Resp B/P (MAP) Pulse Ox O2 Delivery O2 Flow Rate FiO2 06/08/20 07:00 98.2 90 17 158/70 (99) 92 Room Air 98.2 06/07/20 15:00 2.0 Labs Labs Laboratory Tests Test 06/06/20 12:03 06/06/20 16:47 06/06/20 22:21 06/07/20 05:30 Glucose (Fingerstick) 307 mg/dL (70-99) 259 mg/dL (70-99) 255 mg/dL (70-99) White Blood Count 1.5 x10^3/uL (4.0-11.0) Red Blood Count 4.06 x10^6/uL (3.50-5.40) Hemoglobin 9.4 g/dL (12.0-15.5) Hematocrit 30.3 % (36.0-47.0) Mean Corpuscular Volume 75 fL (79-100) Mean Corpuscular Hemoglobin 23 pg (25-35) Mean Corpuscular Hemoglobin Concent 31 g/dL (31-37) Red Cell Distribution Width 19.7 % (11.5-14.5) Platelet Count 32 x10^3/uL (140-400) Neutrophils (%) (Auto) 52 % (31-73) Lymphocytes (%) (Auto) 30 % (24-48) Monocytes (%) (Auto) 9 % (0-9) Eosinophils (%) (Auto) 8 % (0-3) Basophils (%) (Auto) 1 % (0-3) Neutrophils # (Auto) 0.8 x10^3/uL (1.8-7.7) Lymphocytes # (Auto) 0.5 x10^3/uL (1.0-4.8) Monocytes # (Auto) 0.1 x10^3/uL (0.0-1.1) Eosinophils # (Auto) 0.1 x10^3/uL (0.0-0.7) Basophils # (Auto) 0.0 x10^3/uL (0.0-0.2) Sodium Level 138 mmol/L (136-145) Potassium Level 4.3 mmol/L (3.5-5.1) Chloride Level 106 mmol/L (98-107) Carbon Dioxide Level 28 mmol/L (21-32) Anion Gap 4 (6-14) Blood Urea Nitrogen 10 mg/dL (7-20) Creatinine 1.0 mg/dL (0.6-1.0) Estimated GFR (Cockcroft-Gault) 56.6 BUN/Creatinine Ratio 10 (6-20) Glucose Level 281 mg/dL (70-99) Calcium Level 8.1 mg/dL (8.5-10.1) Ferritin 16 ng/mL (8-252) Total Bilirubin 1.0 mg/dL (0.2-1.0) Aspartate Amino Transf (AST/SGOT) 30 U/L (15-37) Alanine Aminotransferase (ALT/SGPT) 17 U/L (14-59) Alkaline Phosphatase 79 U/L (46-116) Total Protein 5.8 g/dL (6.4-8.2) Albumin 2.0 g/dL (3.4-5.0) Albumin/Globulin Ratio 0.5 (1.0-1.7) Test 06/07/20 07:45 06/07/20 09:05 06/07/20 11:55 06/07/20 16:31 Glucose (Fingerstick) 273 mg/dL (70-99) 286 mg/dL (70-99) 292 mg/dL (70-99) Haptoglobin <10 mg/dL (33-346) Vancomycin Level Trough 10.9 mcg/mL (10.0-20.0) Vancomycin Last Dose Date 06/06/2020 Vancomycin Last Dose Time 1500 Test 06/07/20 20:44 06/08/20 04:35 06/08/20 09:15 Glucose (Fingerstick) 294 mg/dL (70-99) 245 mg/dL (70-99) Creatinine 1.0 mg/dL (0.6-1.0) Estimated GFR (Cockcroft-Gault) 56.6 Laboratory Tests Test 06/07/20 11:55 06/07/20 16:31 06/07/20 20:44 06/08/20 04:35 Glucose (Fingerstick) 286 mg/dL (70-99) 292 mg/dL (70-99) 294 mg/dL (70-99) Creatinine 1.0 mg/dL (0.6-1.0) Estimated GFR (Cockcroft-Gault) 56.6 Test 06/08/20 09:15 Glucose (Fingerstick) 245 mg/dL (70-99) Assessment/Plan Assessment/Plan thigh/groin abscess--appears will need formal I&D in OR--i reviewed with Dr De La Rosa--tentative plan for today Covid ordered stat did ask nurse to notify Dr Kaplan of surgery plans--if involves labia--may need assistance HEIDI DE LA ROSA MD 06/08/20 1250: CONSULT Assessment/Plan Assessment/Plan Pt seen and examined; 60 year old female with 1 week history of "L groin pain"'; evaluation consistent with perineal abscess. PMH/PSH/ROS/SH as above; exam: alert, oriented, lungs clear, heart RR and R, abdomen morbidly obese, induration and pain in left perineal/gluteal region, small skin ulceration, ext neg for edema. A/P) Perineal/gluteal abscess, recommend I and D. The surgery was discussed with the patient who would like to proceed. GARRETT GORDON APRN Jun 08, 2020 09:52 HEIDI DE LA ROSA MD Jun 08, 2020 12:50
[2020-06-08] MEDS ORDERED: LIDOCAINE 1% PF 2 ML VIAL. ID PRN (10:00)
[2020-06-08] MEDS ORDERED: ONDANSETRON PF 4 MG/2 ML VIAL. IV PRN (10:00)
--- NOTE | 2020-06-08 10:05 | NUR ---
SW following. Discussed with RN, pt COVID-19 pending for I&D today. SW will continue to follow.
[2020-06-08] MEDS: IV NORMAL SALINE 1000ML BAG 1,000 ML IV SCH ×2 (10:12→15:32)
[2020-06-08] MEDS ORDERED: fentaNYL PF VIAL 100 MCG/2 ML VIAL ONE ×3 (11:33→13:09)
[2020-06-08] MEDS ORDERED: LIDOCAINE 2% PF 5 ML VIAL. ONE (11:51)
[2020-06-08] MEDS ORDERED: ONDANSETRON PF 4 MG/2 ML VIAL. ONE (11:51)
[2020-06-08] MEDS ORDERED: DEXAMETHASONE SOD PHOS 4 MG/ML VIAL ONE (11:51)
[2020-06-08] MEDS ORDERED: PROPOFOL 10 MG/ML (20ML) VIAL. IV ONE (11:51)
[2020-06-08] MEDS: MICAFUNGIN 100 MG in IV DEXTROSE 5% 100ML 100 ML IV SCH (12:03)
[2020-06-08] MEDS ORDERED: SEVOFLURANE 31 TO 60 MINUTES. IH ONE (12:10)
--- NOTE | 2020-06-08 12:28 | PDOC ---
Date of Service: DATE: 06/08/20 TIME: 12:26 Objective: Vital Signs: Vital Signs Date Time Temp Pulse Resp B/P (MAP) Pulse Ox O2 Delivery O2 Flow Rate FiO2 06/08/20 07:00 98.2 90 17 158/70 (99) 92 Room Air 98.2 06/07/20 15:00 2.0 Labs: Laboratory Tests Test 06/07/20 16:31 06/07/20 20:44 06/08/20 04:35 06/08/20 09:15 Glucose (Fingerstick) 292 mg/dL 294 mg/dL 245 mg/dL Creatinine 1.0 mg/dL Estimated GFR (Cockcroft-Gault) 56.6 Test 06/08/20 09:30 SARS-CoV-2 Antigen (Rapid) Negative PE: out of room A/P: Left thigh/groin abscess MACDONALD cirrhosis s/p TIPS (occluded), h/o varices and encephalopathy - follows at [facility] Pancytopenia, BELTRAN - recent EGD, colonoscopy UTD, also SBCE in the past H/o DU -- In OR? Continue PPI, lactulose, Xifaxan. Justicifation of Admission Dx: Justifications for Admission: Justification of Admission Dx: Yes Cellulitis: Cellulitis BOBBY MURILLO Jun 08, 2020 12:28
[2020-06-08] MEDS ORDERED: fentaNYL PF VIAL 100 MCG/2 ML VIAL IVP ONE (12:45)
--- NOTE | 2020-06-08 12:46 | PDOC4 ---
Operative Note Operative Note Operative Note: Preoperative Diagnosis: Perineal abscess Postoperative Diagnosis: Same Procedure: Incision and drainage of perineal abscess Surgeon: Gunnar Anesthesia: General EBL: 10 mL Specimen: Cultures to microbiology Drains: None Complications: None Indication: The patient is a 60-year-old female presented with a perineal abscess. The plan is to proceed with incision and drainage in the operating room. The risks of surgery were discussed which include bleeding, infection, scar tissue, pain, recurrence, potential need for additional surgery procedure. She understands and would like to proceed. Description: The patient was taken the operating room and placed supine on the operating table. General anesthesia was performed. She was then placed in lithotomy. The perineal and medial thigh skin was prepped bilaterally with Betadine and draped in a standard surgical manner. The indurated area of the skin was along the left border of the perineum adjacent to the gluteus. There was some extension of erythema to the labia and inferiorly however the tissues were soft. With a scalpel an elliptical incision was made around a focal area of skin degeneration. There was a small amount of fluid obtained and cultures were sent to microbiology. It seemed as the majority of the abscess had likely already drained. With finger dissection the entire abscess cavity was probed and all loculations were mobilized. Hemostasis was achieved with cautery. The cavity was then irrigated with sterile saline and packed with sterile gauze. A dressing was applied. The patient tolerated the procedure well and was sent to the recovery room in stable condition. At the end of the case all counts were correct. HEIDI DE LA ROSA MD Jun 08, 2020 12:46
[2020-06-08] MEDS ORDERED: oxyCODONE/APAP 5/325 1 TAB TABLET PO PRN (13:00)
[2020-06-08] MEDS: fentaNYL PF VIAL 100 MCG/2 ML VIAL IVP PRN ×3 (13:12→13:35)
--- NOTE | 2020-06-08 13:14 | PDOC4 ---
OPERATIVE NOTE: Intraop consult Pt examined prior to surgery. Left labia somewhat swollen and erythematous. No loculation felt on exam. CT reviewed with no fluid or air seen in vulva. Little value in I&D the vulvar. With I&D of perineal abscess alone and abx should lead to resolution of erythema and swelling in the left vulva. ELIZABETH GU MD Jun 08, 2020 13:14
[2020-06-08] MEDS ORDERED: fentaNYL PF VIAL 100 MCG/2 ML VIAL IVP PRN (13:15)
[2020-06-08] MEDS ORDERED: INSULIN LISPRO 100 UNIT/ML 3ML VIAL for OP,RR ONLY. SQ PRN (13:30)
[2020-06-08 15:12] LABS: KAPPA FREE 53.7 mg/L (3.3-19.4); KAPPA LAMBDA RATIO 1.24 (0.26-1.65); LAMBDA FREE 43.3 mg/L (5.7-26.3)
[2020-06-08] MEDS: oxyCODONE/APAP 5/325 1 TAB TABLET PO PRN ×2 (15:30→20:32)
[2020-06-08] MEDS: VANCOMYCIN PER PHARMACY MC PRN (16:04)
--- NOTE | 2020-06-08 19:40 | PDOC ---
F/U PHYSCH PROG NOTE Subjective: female seen for follow-up. Progress is reviewed with nursing staff. No emotional or behavioral breakdown reported overnight. She is off of her psychotropics. Reporting continued stability in mood and anxiety. Denies overt depression or anxiety. Denies auditory or visual hallucinations. Denies suicidal or homicidal thoughts. No evidence of willy or hypomania. Objective: 14 point review of system is otherwise negative except for as stated above Vital Signs: Vital Signs Date Time Temp Pulse Resp B/P (MAP) Pulse Ox O2 Delivery O2 Flow Rate FiO2 06/08/20 19:09 17 Room Air 06/08/20 17:10 80 131/45 06/08/20 15:30 98.8 97 98.8 06/08/20 13:35 3.0 Labs: Laboratory Tests Test 06/07/20 20:44 06/08/20 04:35 06/08/20 09:15 06/08/20 09:30 Glucose (Fingerstick) 294 mg/dL (70-99) H 245 mg/dL (70-99) H Creatinine 1.0 mg/dL (0.6-1.0) Estimated GFR (Cockcroft-Gault) 56.6 SARS-CoV-2 Antigen (Rapid) Negative (NEGATIVE) Test 06/08/20 13:22 06/08/20 16:57 Glucose (Fingerstick) 211 mg/dL (70-99) H 177 mg/dL (70-99) H Laboratory Tests 06/08/20 04:35 Medications: Current Medications Medications (Trade) Dose Ordered Sig/Boyd Start Time Stop Time Status Last Admin Dose Admin Acetaminophen/ Hydrocodone Bitart (Lortab 5/325) 1 tab PRN Q4HRS PRN 06/06/20 11:00 06/07/20 23:33 1 TAB Dexamethasone Sodium Phosphate (Decadron) 4 mg STK-MED ONCE 06/08/20 11:51 06/08/20 11:51 DC Dextrose (Dextrose 50%-Water Syringe) 12.5 gm PRN Q15MIN PRN 06/06/20 13:30 06/06/20 13:39 DC Fentanyl Citrate (Fentanyl 2ml Vial) 100 mcg STK-MED ONCE 06/08/20 13:09 06/08/20 13:09 DC Fish Oil (Fish Oil) 1,000 mg DAILY 06/07/20 09:00 06/07/20 08:20 1,000 MG Hydromorphone HCl (Dilaudid) 1 mg 1X ONCE 06/05/20 18:15 06/05/20 18:16 DC 06/05/20 18:26 1 MG Info (CONTRAST GIVEN -- Rx MONITORING) 1 each PRN DAILY PRN 06/05/20 19:15 06/07/20 19:14 DC Insulin Glargine (Lantus Syringe) 10 unit QHS 06/07/20 21:00 06/07/20 20:51 10 UNIT Insulin Human Lispro (HumaLOG VIAL for OP,RR ONLY) 0-10 units PRN Q1HR PRN 06/08/20 13:30 06/09/20 13:29 06/08/20 13:25 6 UNIT Insulin Human Lispro (HumaLOG) 0-5 UNITS TIDWMEALS 06/06/20 17:00 06/07/20 17:48 4 UNITS Iohexol (Omnipaque 300 Mg/ml) 60 ml 1X ONCE 06/05/20 19:00 06/05/20 19:07 DC 06/05/20 19:15 60 ML Lactobacillus Rhamnosus (Culturelle) 1 cap BID 06/07/20 21:00 06/07/20 20:45 1 CAP Lactulose (Lactulose) 20 gm TID 06/06/20 14:00 06/07/20 20:45 20 GM Levothyroxine Sodium (Synthroid) 50 mcg DAILY06 06/06/20 15:00 06/08/20 05:30 50 MCG Lidocaine HCl (Lidocaine Pf 2% Vial) 5 ml STK-MED ONCE 06/08/20 11:51 06/08/20 11:51 DC Lidocaine HCl (Xylocaine-Mpf 1% 2ml Vial) 2 ml PRN 1X PRN 06/08/20 10:00 06/09/20 09:59 Micafungin Sodium 100 mg/Dextrose 100 ml @ 100 mls/hr Q24H 06/07/20 12:00 06/08/20 12:03 100 MLS/HR Midodrine (Proamatine) 10 mg [id number] 06/06/20 14:30 Morphine Sulfate (Morphine Sulfate) 2 mg PRN Q2HR PRN 06/07/20 00:30 06/08/20 19:09 2 MG Ondansetron HCl (Zofran) 4 mg STK-MED ONCE 06/08/20 11:51 06/08/20 11:51 DC Oxycodone/ Acetaminophen (Percocet 5/325) 2 tab PRN Q4HRS PRN 06/08/20 13:00 06/08/20 15:30 2 TAB Pantoprazole Sodium (Protonix) 40 mg BIDAC 06/06/20 16:30 06/08/20 17:27 40 MG Piperacillin Sod/ Tazobactam Sod (Zosyn Per Pharmacy) 1 each PRN DAILY PRN 06/06/20 12:45 Piperacillin Sod/ Tazobactam Sod 3.375 gm/Sodium Chloride 50 ml @ 100 mls/hr Q6HRS 06/06/20 13:30 06/08/20 17:28 100 MLS/HR Polyethylene Glycol (miraLAX PACKET) 17 gm PRN DAILY PRN 06/07/20 11:00 Propofol (Diprivan) 200 mg STK-MED ONCE 06/08/20 11:51 06/08/20 11:51 DC Psyllium Hydrophilic Mucilloid (Metamucil Fiber Packet) 1 pkt DAILY 06/07/20 11:00 06/07/20 11:13 1 PKT Rifaximin (Xifaxan) 550 mg BID 06/06/20 15:00 06/07/20 20:45 550 MG Ringer's Solution 1,000 ml @ 30 mls/hr Q24H 06/08/20 13:07 06/09/20 01:06 Sevoflurane (Ultane) 30 ml STK-MED ONCE 06/08/20 12:10 06/08/20 12:10 DC Sodium Chloride 1,000 ml @ 70 mls/hr [id number] 06/06/20 01:00 06/08/20 15:32 70 MLS/HR Vancomycin HCl (Vanco Per Pharmacy) 1 each PRN DAILY PRN 06/06/20 12:45 06/08/20 16:04 1 EACH Vancomycin HCl (Vancomycin Trough Level) 1 each 1X ONCE 06/07/20 08:30 06/07/20 08:31 DC 06/07/20 08:20 1 EACH Vancomycin HCl 1.75 gm/Sodium Chloride 500 ml @ 250 mls/hr Q18H 06/06/20 15:00 06/08/20 02:06 250 MLS/HR Vancomycin HCl 2 gm/Sodium Chloride 500 ml @ 250 mls/hr 1X ONCE 06/05/20 20:30 06/05/20 22:29 DC 06/05/20 20:53 250 MLS/HR Physical Exam: Mental Status Exam: 60-year-old female appears her stated age Cooperative and interactive Alert and oriented Thought processes goal-directed Denies auditory or visual hallucinations no abnormal perception noted. Denies suicidal or homicidal thoughts. Mood is okay Affect is constricted Insight is fair Judgment is fair Impulse control is fair attention span and concentration fair Recent and remote memory intact Physical Exam: Refer to Physician's note. 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 She has lifelong history of bipolar mood disorder with most recent episode depressive for the most part. She reports reasonable stability with current regimen of bupropion and Topamax. Though she is off of medication, she denies overt depression or anxiety. No mood oscillations reported. Plan: With given pancytopenia, options of psychotropics are limited. In case of worsening depression bupropion can be started. However for mood stability, antiepileptics are associated with bone marrow suppression including Topamax. Avoid Topamax. Risks, benefits, alternatives of the treatment and no treatment are discussed. Adverse drug reaction of the medications including Topamax and Wellbutrin are also discussed. Monitor for symptomatology, safety, and adverse drug reaction. Thank you for involving inpatient care for KAMILLA TIRADO MD Jun 08, 2020 19:40
[2020-06-08] MEDS: INSULIN GLARGINE SYRINGE. SQ SCH (20:37)
[2020-06-09] MEDS: MORPHINE SULFATE 2 MG/ML VIAL. IV PRN ×5 (00:23→20:38)
[2020-06-09 03:00] VITALS: BP 138/56
[2020-06-09] MEDS: oxyCODONE/APAP 5/325 1 TAB TABLET PO PRN ×3 (03:10→22:43)
[2020-06-09] MEDS: MIDODRINE 5 MG TABLET PO SCH ×3 (05:17→18:00)
[2020-06-09] MEDS: PIPERACILLIN/TAZOBACTAM 3.375 GM in IV NORMAL SALINE 50ML 50 ML IV SCH ×3 (05:54→18:00)
[2020-06-09] MEDS: PANTOPRAZOLE 40 MG TABLET.DR. PO SCH ×2 (05:54→09:00)
[2020-06-09] MEDS: LEVOTHYROXINE 50 MCG TABLET PO SCH (05:54)
[2020-06-09 07:00] VITALS: BP 144/59
[2020-06-09 07:14] LABS: BASO % 1 % (0-3); EOS # 0.2 x10^3/uL (0.0-0.7); EOS % 8 % (0-3); HEMATOCRIT 29.6 % (36.0-47.0); HEMOGLOBIN 9.1 g/dL (12.0-15.5); LYMPH # 0.5 x10^3/uL (1.0-4.8); LYMPH % 23 % (24-48); MEAN CORPUSCULAR HEMOGLOBIN 23 pg (25-35); MEAN CORPUSCULAR HGB CONC 31 g/dL (31-37); MEAN CORPUSCULAR VOLUME 75 fL (79-100); MONO # 0.2 x10^3/uL (0.0-1.1); MONO % 8 % (0-9); NEUT # 1.4 x10^3/uL (1.8-7.7); NEUT % 61 % (31-73); PLATELET COUNT 33 x10^3/uL (140-400); RED BLOOD COUNT 3.98 x10^6/uL (3.50-5.40); RED CELL DISTRIBUTION WIDTH 19.5 % (11.5-14.5); WHITE BLOOD COUNT 2.3 x10^3/uL (4.0-11.0)
[2020-06-09 07:36] LABS: ALBUMIN 1.9 g/dL (3.4-5.0); ALBUMIN/GLOBULIN RATIO 0.5 (1.0-1.7); CREATININE 1.1 mg/dL (0.6-1.0); GFR 50.7; POTASSIUM 4.2 mmol/L (3.5-5.1); TOTAL BILIRUBIN 1.1 mg/dL (0.2-1.0); TOTAL PROTEIN 5.5 g/dL (6.4-8.2)
--- NOTE | 2020-06-09 08:28 | PDOC ---
[employer] PROGRESS NOTE Date of Service DOS: DATE: 06/09/20 TIME: 08:26 Chief Complaint Chief Complaint A/P: Cellulitis of groin and labia -ID consulted, vancomycin and Zosyn therapy for now. Topical antifungal. Abscess of left perineal region Sepsis - due to cellulitis of groin failing outpatient therapy Severe protein calorie malnutrition -likely secondary to cirrhosis, will consult dietitian Pancytopenia - noted previously, her anemia and thrombocytopenia can be explained with her cirrhosis, her leukopenia however is not clear in its etiology. Diabetes -will place on insulin therapy while inpatient. Hold metformin. MACDONALD -with cirrhosis status post TIPS. Bipolar disease -we will consult psychiatry for medication recommendations. Hypothyroidism -continue levothyroxine Morbid obesity -counseled on weight loss techniques History of Present Illness History of Present Illness Ms Ashraf is a 59-year-old female with a history of diabetes, MACDONALD with cirrhosis s/p TIPS, bipolar disease, hypothyroidism, anemia, thrombocytopenia, and morbid obesity admitted with rash, neutropenia who presents with a chief complaint of groin discomfort. Patient states over the past 5 days she has had redness and swelling to her vulvar region. She stated 5 days ago she was seen in urgent care and prescribed nystatin powder and doxycycline for an infection, but did not seem to improve. No vaginal discharge or bleeding and denies any pain with bowel movement. She does note some burning sensation when she urinates. Noted with pancytopenia WBC 1.5, platelets 32, Hb 9.4 albumin 2, glucose 281. Admitted for failure of outpatient antibiotic therapy for groin cellulitis on vancomycin and Zosyn. 06/07: Afebrile. No BM last day despite her lactulose dosing.Pain is controlled with IV morphine. She does not feel her groin is improving. 06/08: Afebrile. Some more drainage from left perineal area, had surgical evalua tion, I&D with cultures. Afebrile. Labs stable. Vitals/I&O Vitals/I&O: Vital Signs Date Time Temp Pulse Resp B/P (MAP) Pulse Ox O2 Delivery O2 Flow Rate FiO2 06/09/20 06:15 17 Room Air 2.0 06/09/20 05:54 93 06/09/20 03:00 97.7 81 138/56 (83) 97.7 I & O 9/106/08/20 06/09/20 15:00 23:00 07:00 Intake Total 800 ml 650 ml 550 ml Output Total 10 ml Balance 790 ml 650 ml 550 ml Physical Exam Physical Exam: GENERAL: Alert and oriented x 3 female, lying in bed comfortably, in no acute distress. HEENT: Normocephalic, atraumatic, anicteric. NECK: Supple, no JVD. LUNGS: Clear bilaterally. No wheezing. HEART: S1, S2. No gallops or murmurs. ABDOMEN: Soft, nontender, nondistended. GENITOURINARY: swelling over the left vulvar area with erythema going down both medial thighs, left greater than right. Lt vulvar induration, tenderness DERMATOLOGIC: Warm, dry. No generalized rash except for above. CENTRAL NERVOUS SYSTEM: Alert and oriented x 3, grossly nonfocal. PSYCHIATRIC: Cooperative, appropriate mood and affect. General: Alert, Oriented X3, Cooperative Heart: Regular rate, Normal S1, Normal S2 Lungs: Clear Abdomen: Soft, Other (obese, ND, NTTP) Extremities: No clubbing, No cyanosis Skin: Other (left groin/thigh area to perineal area with induration, erythema, tenderness, 2 small open wounds, no current drainage, swelling extends up to labia--right thigh area, minimal erythema, noted pustule right labia) Labs Labs: Laboratory Tests Test 06/08/20 09:15 06/08/20 09:30 06/08/20 13:22 06/08/20 16:57 Glucose (Fingerstick) 245 mg/dL (70-99) 211 mg/dL (70-99) 177 mg/dL (70-99) Coronavirus (PCR) Not detected (Not Detected) SARS-CoV-2 Antigen (Rapid) Negative (NEGATIVE) Test 06/08/20 20:49 06/09/20 06:30 06/09/20 06:50 06/09/20 07:46 Glucose (Fingerstick) 235 mg/dL (70-99) 186 mg/dL (70-99) White Blood Count 2.3 x10^3/uL (4.0-11.0) Red Blood Count 3.98 x10^6/uL (3.50-5.40) Hemoglobin 9.1 g/dL (12.0-15.5) Hematocrit 29.6 % (36.0-47.0) Mean Corpuscular Volume 75 fL (79-100) Mean Corpuscular Hemoglobin 23 pg (25-35) Mean Corpuscular Hemoglobin Concent 31 g/dL (31-37) Red Cell Distribution Width 19.5 % (11.5-14.5) Platelet Count 33 x10^3/uL (140-400) Neutrophils (%) (Auto) 61 % (31-73) Lymphocytes (%) (Auto) 23 % (24-48) Monocytes (%) (Auto) 8 % (0-9) Eosinophils (%) (Auto) 8 % (0-3) Basophils (%) (Auto) 1 % (0-3) Neutrophils # (Auto) 1.4 x10^3/uL (1.8-7.7) Lymphocytes # (Auto) 0.5 x10^3/uL (1.0-4.8) Monocytes # (Auto) 0.2 x10^3/uL (0.0-1.1) Eosinophils # (Auto) 0.2 x10^3/uL (0.0-0.7) Basophils # (Auto) 0.0 x10^3/uL (0.0-0.2) Sodium Level 140 mmol/L (136-145) Potassium Level 4.2 mmol/L (3.5-5.1) Chloride Level 107 mmol/L (98-107) Carbon Dioxide Level 29 mmol/L (21-32) Anion Gap 4 (6-14) Blood Urea Nitrogen 8 mg/dL (7-20) Creatinine 1.1 mg/dL (0.6-1.0) Estimated GFR (Cockcroft-Gault) 50.7 BUN/Creatinine Ratio 7 (6-20) Glucose Level 194 mg/dL (70-99) Calcium Level 8.0 mg/dL (8.5-10.1) Total Bilirubin 1.1 mg/dL (0.2-1.0) Aspartate Amino Transf (AST/SGOT) 32 U/L (15-37) Alanine Aminotransferase (ALT/SGPT) 18 U/L (14-59) Alkaline Phosphatase 73 U/L (46-116) Total Protein 5.5 g/dL (6.4-8.2) Albumin 1.9 g/dL (3.4-5.0) Albumin/Globulin Ratio 0.5 (1.0-1.7) Assessment and Plan Assessmemt and Plan Problems Medical Problems: (1) Cellulitis, perineum Status: Acute (2) MACDONALD (nonalcoholic steatohepatitis) Status: Acute Comment Review of Relevant I have reviewed the following items tano (where applicable) has been applied. Medications: Current Medications Medications (Trade) Dose Ordered Sig/Boyd Route PRN Reason Start Time Stop Time Status Last Admin Dose Admin Fentanyl Citrate (Fentanyl 2ml Vial) 25-50mcg IVP q5min while... PRN Q5MIN ONCE IVP 06/08/20 12:45 06/08/20 12:50 DC 06/08/20 12:45 Oxycodone/ Acetaminophen (Percocet 5/325) 2 tab PRN Q4HRS PRN PO SEVERE PAIN 06/08/20 13:00 06/09/20 03:10 Fentanyl Citrate (Fentanyl 2ml Vial) 50 mcg PRN Q5MIN PRN IVP pain 06/08/20 13:15 06/08/20 21:00 DC 06/08/20 13:35 Insulin Human Lispro (HumaLOG VIAL for OP,RR ONLY) 0-10 units PRN Q1HR PRN SQ PER PROTOCOL 06/08/20 13:30 06/09/20 13:29 06/08/20 13:25 Justifications for Admission Other Justification MERARI CARDOSO MD Jun 09, 2020 08:28
[2020-06-09] MEDS: LACTULOSE 20 GM/30 ML SOLUTION. PO SCH ×3 (08:59→20:39)
[2020-06-09] MEDS: PSYLLIUM HUSK (SUGAR FREE) 1 PKT PACKET PO SCH (09:00)
[2020-06-09] MEDS: POLYETHYLENE GLYCOL 3350 17 GM PACKET. PO SCH ×3 (09:00→20:37)
[2020-06-09] MEDS: LACTOBACILLUS RHAMNOSUS GG 1 CAPSULE. PO SCH ×2 (09:00→20:37)
[2020-06-09] MEDS: OMEGA-3 FATTY ACIDS/FISH OIL 1,000 MG CAPSULE. PO SCH (09:00)
[2020-06-09] MEDS: rifAXIMin 550 MG TABLET PO SCH ×2 (09:00→20:37)
[2020-06-09] MEDS: INSULIN LISPRO 300 UNITS/3 ML VIAL. SQ SCH ×3 (09:13→17:00)
--- NOTE | 2020-06-09 10:04 | PDOC ---
Infectious Disease Note Subjective: Subjective Patient complains of pain at postop site but is under control with pain medication Denies fever, nausea, vomiting, shortness of breath, diarrhea, abdominal pain, rash Otherwise as above Vital Signs: Vital Signs Vital Signs Date Time Temp Pulse Resp B/P (MAP) Pulse Ox O2 Delivery O2 Flow Rate FiO2 06/09/20 07:00 98.0 76 17 144/59 (87) 95 Room Air 2.0 98.0 Physical Exam: PHYSICAL EXAM GENERAL: Alert and oriented x 3 female, lying in bed comfortably, in no acute distress. HEENT: Normocephalic, atraumatic, anicteric. NECK: Supple, no JVD. LUNGS: Clear bilaterally. No wheezing. HEART: S1, S2. No gallops or murmurs. ABDOMEN: Soft, nontender, nondistended. GENITOURINARY: ,Erythema both thighs, dressing not taken down DERMATOLOGIC: Warm, dry. No generalized rash except for above. CENTRAL NERVOUS SYSTEM: Alert and oriented x 3, grossly nonfocal. PSYCHIATRIC: Cooperative, appropriate mood and affect. Medications: Inpatient Meds: Current Medications Medications (Trade) Dose Ordered Sig/Boyd Start Time Stop Time Status Last Admin Dose Admin Acetaminophen/ Hydrocodone Bitart (Lortab 5/325) 1 tab PRN Q4HRS PRN 06/06/20 11:00 06/07/20 23:33 1 TAB Dexamethasone Sodium Phosphate (Decadron) 4 mg STK-MED ONCE 06/08/20 11:51 06/08/20 11:51 DC Dextrose (Dextrose 50%-Water Syringe) 12.5 gm PRN Q15MIN PRN 06/06/20 13:30 06/06/20 13:39 DC Fentanyl Citrate (Fentanyl 2ml Vial) 100 mcg STK-MED ONCE 06/08/20 13:09 06/08/20 13:09 DC Fish Oil (Fish Oil) 1,000 mg DAILY 06/07/20 09:00 06/09/20 09:00 1,000 MG Hydromorphone HCl (Dilaudid) 1 mg 1X ONCE 06/05/20 18:15 06/05/20 18:16 DC 06/05/20 18:26 1 MG Info (CONTRAST GIVEN -- Rx MONITORING) 1 each PRN DAILY PRN 06/05/20 19:15 06/07/20 19:14 DC Insulin Glargine (Lantus Syringe) 10 unit QHS 06/07/20 21:00 06/08/20 20:37 10 UNIT Insulin Human Lispro (HumaLOG VIAL for OP,RR ONLY) 0-10 units PRN Q1HR PRN 06/08/20 13:30 06/09/20 08:44 DC 06/08/20 13:25 6 UNIT Insulin Human Lispro (HumaLOG) 0-5 UNITS TIDWMEALS 06/06/20 17:00 06/09/20 09:13 2 UNITS Iohexol (Omnipaque 300 Mg/ml) 60 ml 1X ONCE 06/05/20 19:00 06/05/20 19:07 DC 06/05/20 19:15 60 ML Lactobacillus Rhamnosus (Culturelle) 1 cap BID 06/07/20 21:00 06/09/20 09:00 1 CAP Lactulose (Lactulose) 20 gm TID 06/06/20 14:00 06/09/20 08:59 20 GM Levothyroxine Sodium (Synthroid) 50 mcg DAILY06 06/06/20 15:00 06/09/20 05:54 50 MCG Lidocaine HCl (Lidocaine Pf 2% Vial) 5 ml STK-MED ONCE 06/08/20 11:51 06/08/20 11:51 DC Lidocaine HCl (Xylocaine-Mpf 1% 2ml Vial) 2 ml PRN 1X PRN 06/08/20 10:00 06/09/20 09:59 DC Micafungin Sodium 100 mg/Dextrose 100 ml @ 100 mls/hr Q24H 06/07/20 12:00 06/08/20 12:03 100 MLS/HR Midodrine (Proamatine) 10 mg [id number] 06/06/20 14:30 Morphine Sulfate (Morphine Sulfate) 2 mg PRN Q2HR PRN 06/07/20 00:30 06/09/20 05:54 2 MG Ondansetron HCl (Zofran) 4 mg STK-MED ONCE 06/08/20 11:51 06/08/20 11:51 DC Oxycodone/ Acetaminophen (Percocet 5/325) 2 tab PRN Q4HRS PRN 06/08/20 13:00 06/09/20 09:01 2 TAB Pantoprazole Sodium (Protonix) 40 mg BIDAC 06/06/20 16:30 06/09/20 09:00 40 MG Piperacillin Sod/ Tazobactam Sod (Zosyn Per Pharmacy) 1 each PRN DAILY PRN 06/06/20 12:45 Piperacillin Sod/ Tazobactam Sod 3.375 gm/Sodium Chloride 50 ml @ 100 mls/hr Q6HRS 06/06/20 13:30 06/09/20 05:54 100 MLS/HR Polyethylene Glycol (miraLAX PACKET) 17 gm PRN DAILY PRN 06/07/20 11:00 Propofol (Diprivan) 200 mg STK-MED ONCE 06/08/20 11:51 06/08/20 11:51 DC Psyllium Hydrophilic Mucilloid (Metamucil Fiber Packet) 1 pkt DAILY 06/07/20 11:00 06/09/20 09:00 1 PKT Rifaximin (Xifaxan) 550 mg BID 06/06/20 15:00 06/09/20 09:00 550 MG Ringer's Solution 1,000 ml @ 30 mls/hr Q24H 06/08/20 13:07 06/09/20 01:06 DC Sevoflurane (Ultane) 30 ml STK-MED ONCE 06/08/20 12:10 06/08/20 12:10 DC Sodium Chloride 1,000 ml @ 70 mls/hr [id number] 06/06/20 01:00 06/08/20 15:32 70 MLS/HR Vancomycin HCl (Vanco Per Pharmacy) 1 each PRN DAILY PRN 06/06/20 12:45 06/08/20 16:04 1 EACH Vancomycin HCl (Vancomycin Trough Level) 1 each 1X ONCE 06/07/20 08:30 06/07/20 08:31 DC 06/07/20 08:20 1 EACH Vancomycin HCl 1.75 gm/Sodium Chloride 500 ml @ 250 mls/hr Q18H 06/06/20 15:00 06/08/20 20:31 250 MLS/HR Vancomycin HCl 2 gm/Sodium Chloride 500 ml @ 250 mls/hr 1X ONCE 06/05/20 20:30 06/05/20 22:29 DC 06/05/20 20:53 250 MLS/HR Labs: Lab Laboratory Tests Test 06/08/20 13:22 06/08/20 16:57 06/08/20 20:49 06/09/20 06:30 Glucose (Fingerstick) 211 mg/dL (70-99) 177 mg/dL (70-99) 235 mg/dL (70-99) White Blood Count 2.3 x10^3/uL (4.0-11.0) Red Blood Count 3.98 x10^6/uL (3.50-5.40) Hemoglobin 9.1 g/dL (12.0-15.5) Hematocrit 29.6 % (36.0-47.0) Mean Corpuscular Volume 75 fL (79-100) Mean Corpuscular Hemoglobin 23 pg (25-35) Mean Corpuscular Hemoglobin Concent 31 g/dL (31-37) Red Cell Distribution Width 19.5 % (11.5-14.5) Platelet Count 33 x10^3/uL (140-400) Neutrophils (%) (Auto) 61 % (31-73) Lymphocytes (%) (Auto) 23 % (24-48) Monocytes (%) (Auto) 8 % (0-9) Eosinophils (%) (Auto) 8 % (0-3) Basophils (%) (Auto) 1 % (0-3) Neutrophils # (Auto) 1.4 x10^3/uL (1.8-7.7) Lymphocytes # (Auto) 0.5 x10^3/uL (1.0-4.8) Monocytes # (Auto) 0.2 x10^3/uL (0.0-1.1) Eosinophils # (Auto) 0.2 x10^3/uL (0.0-0.7) Basophils # (Auto) 0.0 x10^3/uL (0.0-0.2) Test 06/09/20 06:50 06/09/20 07:46 Sodium Level 140 mmol/L (136-145) Potassium Level 4.2 mmol/L (3.5-5.1) Chloride Level 107 mmol/L (98-107) Carbon Dioxide Level 29 mmol/L (21-32) Anion Gap 4 (6-14) Blood Urea Nitrogen 8 mg/dL (7-20) Creatinine 1.1 mg/dL (0.6-1.0) Estimated GFR (Cockcroft-Gault) 50.7 BUN/Creatinine Ratio 7 (6-20) Glucose Level 194 mg/dL (70-99) Calcium Level 8.0 mg/dL (8.5-10.1) Total Bilirubin 1.1 mg/dL (0.2-1.0) Aspartate Amino Transf (AST/SGOT) 32 U/L (15-37) Alanine Aminotransferase (ALT/SGPT) 18 U/L (14-59) Alkaline Phosphatase 73 U/L (46-116) Total Protein 5.5 g/dL (6.4-8.2) Albumin 1.9 g/dL (3.4-5.0) Albumin/Globulin Ratio 0.5 (1.0-1.7) Glucose (Fingerstick) 186 mg/dL (70-99) Micro MIXED AEROBIC SOPHIA on 06/07/20 at 1324 INCLUDING: MODERATE [ESCHERICHIA COLI] MODERATE [BETA STREP GROUP B] MODERATE [ENTEROCOCCUS FAECALIS] ESCHERICHIA COLI ENTEROCOCCUS FAECALIS BETA STREP GROUP B Objective: Assessment: 1. Cellulitis/abscess Lt vulvar area, Cellulitis over the left thigh and groin area, some on the right. cults positive for e coli, enterococcus fecalis and grp b strep 2. Pancytopenia, leukopenia hematology following 3. History of MACDONALD, status post TIPS. 4. History of varices and encephalopathy. 5. Lactic acidosis, resolved. 6. Diabetes. 7. History of bipolar disorder. Plan: Plan of Care 1. Continue Zosyn. micafungin. 2. DC IV vancomycin 3. Continue local wound care as directed 4. Follow up labs and cultures. 5. Continue supportive care. 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
--- NOTE | 2020-06-09 10:36 | PDOC ---
SURGICAL PROGRESS NOTE DATE: 06/09/20 TIME: 10:35 Subjective still with pain Vital Signs Vital Signs Date Time Temp Pulse Resp B/P (MAP) Pulse Ox O2 Delivery O2 Flow Rate FiO2 06/09/20 07:00 98.0 76 17 144/59 (87) 95 Room Air 2.0 98.0 I&O Intake and Output 06/09/20 07:00 Intake Total 2000 ml Output Total 10 ml Balance 1990 ml Intake Oral 450 ml IV Total 1550 ml Output Estimated Blood Loss 10 ml # Voids 2 # Bowel Movements 1 General: Alert, Cooperative Skin: Other (wound with packing, erythema looks better ) Labs Laboratory Tests Test 06/07/20 11:55 06/07/20 16:31 06/07/20 20:44 06/08/20 04:35 Glucose (Fingerstick) 286 mg/dL (70-99) 292 mg/dL (70-99) 294 mg/dL (70-99) Creatinine 1.0 mg/dL (0.6-1.0) Estimated GFR (Cockcroft-Gault) 56.6 Test 06/08/20 09:15 06/08/20 09:30 06/08/20 13:22 06/08/20 16:57 Glucose (Fingerstick) 245 mg/dL (70-99) 211 mg/dL (70-99) 177 mg/dL (70-99) Coronavirus (PCR) Not detected (Not Detected) SARS-CoV-2 Antigen (Rapid) Negative (NEGATIVE) Test 06/08/20 20:49 06/09/20 06:30 06/09/20 06:50 06/09/20 07:46 Glucose (Fingerstick) 235 mg/dL (70-99) 186 mg/dL (70-99) White Blood Count 2.3 x10^3/uL (4.0-11.0) Red Blood Count 3.98 x10^6/uL (3.50-5.40) Hemoglobin 9.1 g/dL (12.0-15.5) Hematocrit 29.6 % (36.0-47.0) Mean Corpuscular Volume 75 fL (79-100) Mean Corpuscular Hemoglobin 23 pg (25-35) Mean Corpuscular Hemoglobin Concent 31 g/dL (31-37) Red Cell Distribution Width 19.5 % (11.5-14.5) Platelet Count 33 x10^3/uL (140-400) Neutrophils (%) (Auto) 61 % (31-73) Lymphocytes (%) (Auto) 23 % (24-48) Monocytes (%) (Auto) 8 % (0-9) Eosinophils (%) (Auto) 8 % (0-3) Basophils (%) (Auto) 1 % (0-3) Neutrophils # (Auto) 1.4 x10^3/uL (1.8-7.7) Lymphocytes # (Auto) 0.5 x10^3/uL (1.0-4.8) Monocytes # (Auto) 0.2 x10^3/uL (0.0-1.1) Eosinophils # (Auto) 0.2 x10^3/uL (0.0-0.7) Basophils # (Auto) 0.0 x10^3/uL (0.0-0.2) Sodium Level 140 mmol/L (136-145) Potassium Level 4.2 mmol/L (3.5-5.1) Chloride Level 107 mmol/L (98-107) Carbon Dioxide Level 29 mmol/L (21-32) Anion Gap 4 (6-14) Blood Urea Nitrogen 8 mg/dL (7-20) Creatinine 1.1 mg/dL (0.6-1.0) Estimated GFR (Cockcroft-Gault) 50.7 BUN/Creatinine Ratio 7 (6-20) Glucose Level 194 mg/dL (70-99) Calcium Level 8.0 mg/dL (8.5-10.1) Total Bilirubin 1.1 mg/dL (0.2-1.0) Aspartate Amino Transf (AST/SGOT) 32 U/L (15-37) Alanine Aminotransferase (ALT/SGPT) 18 U/L (14-59) Alkaline Phosphatase 73 U/L (46-116) Total Protein 5.5 g/dL (6.4-8.2) Albumin 1.9 g/dL (3.4-5.0) Albumin/Globulin Ratio 0.5 (1.0-1.7) Laboratory Tests Test 06/08/20 13:22 06/08/20 16:57 06/08/20 20:49 06/09/20 06:30 Glucose (Fingerstick) 211 mg/dL (70-99) 177 mg/dL (70-99) 235 mg/dL (70-99) White Blood Count 2.3 x10^3/uL (4.0-11.0) Red Blood Count 3.98 x10^6/uL (3.50-5.40) Hemoglobin 9.1 g/dL (12.0-15.5) Hematocrit 29.6 % (36.0-47.0) Mean Corpuscular Volume 75 fL (79-100) Mean Corpuscular Hemoglobin 23 pg (25-35) Mean Corpuscular Hemoglobin Concent 31 g/dL (31-37) Red Cell Distribution Width 19.5 % (11.5-14.5) Platelet Count 33 x10^3/uL (140-400) Neutrophils (%) (Auto) 61 % (31-73) Lymphocytes (%) (Auto) 23 % (24-48) Monocytes (%) (Auto) 8 % (0-9) Eosinophils (%) (Auto) 8 % (0-3) Basophils (%) (Auto) 1 % (0-3) Neutrophils # (Auto) 1.4 x10^3/uL (1.8-7.7) Lymphocytes # (Auto) 0.5 x10^3/uL (1.0-4.8) Monocytes # (Auto) 0.2 x10^3/uL (0.0-1.1) Eosinophils # (Auto) 0.2 x10^3/uL (0.0-0.7) Basophils # (Auto) 0.0 x10^3/uL (0.0-0.2) Test 06/09/20 06:50 06/09/20 07:46 Sodium Level 140 mmol/L (136-145) Potassium Level 4.2 mmol/L (3.5-5.1) Chloride Level 107 mmol/L (98-107) Carbon Dioxide Level 29 mmol/L (21-32) Anion Gap 4 (6-14) Blood Urea Nitrogen 8 mg/dL (7-20) Creatinine 1.1 mg/dL (0.6-1.0) Estimated GFR (Cockcroft-Gault) 50.7 BUN/Creatinine Ratio 7 (6-20) Glucose Level 194 mg/dL (70-99) Calcium Level 8.0 mg/dL (8.5-10.1) Total Bilirubin 1.1 mg/dL (0.2-1.0) Aspartate Amino Transf (AST/SGOT) 32 U/L (15-37) Alanine Aminotransferase (ALT/SGPT) 18 U/L (14-59) Alkaline Phosphatase 73 U/L (46-116) Total Protein 5.5 g/dL (6.4-8.2) Albumin 1.9 g/dL (3.4-5.0) Albumin/Globulin Ratio 0.5 (1.0-1.7) Glucose (Fingerstick) 186 mg/dL (70-99) Problem List Problems Medical Problems: (1) Cellulitis, perineum Status: Acute (2) MACDONALD (nonalcoholic steatohepatitis) Status: Acute Assessment/Plan s/p I&D await wound care Justicifation of Admission Dx: Justifications for Admission: Justification of Admission Dx: Yes Cellulitis: Cellulitis GARRETT GORDON APRN Jun 09, 2020 10:36
--- NOTE | 2020-06-09 10:37 | NUR ---
SW following. Discussed with RN, pt on IV abx, awaiting cultures from I&D. SW will continue to follow.
[2020-06-09 11:00] VITALS: BP 151/64
--- NOTE | 2020-06-09 11:11 | PDOC ---
Date of Service: DATE: 06/09/20 TIME: 11:07 Subjective: Subjective: Has some pain related to abscess. Says tolerating diet. Stooled yesterday. No abd pain. Objective: Vital Signs: Vital Signs Date Time Temp Pulse Resp B/P (MAP) Pulse Ox O2 Delivery O2 Flow Rate FiO2 06/09/20 07:00 98.0 76 17 144/59 (87) 95 Room Air 2.0 98.0 Labs: Laboratory Tests Test 06/08/20 13:22 06/08/20 16:57 06/08/20 20:49 06/09/20 06:30 Glucose (Fingerstick) 211 mg/dL 177 mg/dL 235 mg/dL White Blood Count 2.3 x10^3/uL Red Blood Count 3.98 x10^6/uL Hemoglobin 9.1 g/dL Hematocrit 29.6 % Mean Corpuscular Volume 75 fL Mean Corpuscular Hemoglobin 23 pg Mean Corpuscular Hemoglobin Concent 31 g/dL Red Cell Distribution Width 19.5 % Platelet Count 33 x10^3/uL Neutrophils (%) (Auto) 61 % Lymphocytes (%) (Auto) 23 % Monocytes (%) (Auto) 8 % Eosinophils (%) (Auto) 8 % Basophils (%) (Auto) 1 % Neutrophils # (Auto) 1.4 x10^3/uL Lymphocytes # (Auto) 0.5 x10^3/uL Monocytes # (Auto) 0.2 x10^3/uL Eosinophils # (Auto) 0.2 x10^3/uL Basophils # (Auto) 0.0 x10^3/uL Test 06/09/20 06:50 06/09/20 07:46 Sodium Level 140 mmol/L Potassium Level 4.2 mmol/L Chloride Level 107 mmol/L Carbon Dioxide Level 29 mmol/L Anion Gap 4 Blood Urea Nitrogen 8 mg/dL Creatinine 1.1 mg/dL Estimated GFR (Cockcroft-Gault) 50.7 BUN/Creatinine Ratio 7 Glucose Level 194 mg/dL Calcium Level 8.0 mg/dL Total Bilirubin 1.1 mg/dL Aspartate Amino Transf (AST/SGOT) 32 U/L Alanine Aminotransferase (ALT/SGPT) 18 U/L Alkaline Phosphatase 73 U/L Total Protein 5.5 g/dL Albumin 1.9 g/dL Albumin/Globulin Ratio 0.5 Glucose (Fingerstick) 186 mg/dL GRAM STAIN Final Final GRAM NEGATIVE RODS:RARE SQUAMOUS EPI CELL:RARE PMN (WBCs):RARE Unless otherwise specified, Testing Performed by: [address] [address] For Inquires, the Physician may contact the Microbiology department at [phone] ANAEROBIC-AEROBIC CULTURE Preliminary Preliminary FEW GRAM NEGATIVE RODS on 06/09/20 at 1044 FINAL ID= [ESCHERICHIA COLI] PE: GEN: NAD LUNGS: clear anteriorly, NC HEART: RRR ABD: large, soft, quiet, non-tender NEURO/PSYCH: A & O 3, flat A/P: S/p I&D perineal abscess MACDONALD cirrhosis s/p TIPS (occluded per pt), h/o varices and encephalopathy - follows at Pancytopenia, [facility] - recent EGD reportedly normal at , colonoscopy UTD, also past SBCE H/o DU -- Continue PPI, lactulose, Xifaxan. Justicifation of Admission Dx: Justifications for Admission: Justification of Admission Dx: Yes Cellulitis: Cellulitis BOBBY MURILLO Jun 09, 2020 11:11
[2020-06-09 13:13] LABS: ALBUM 2.5 g/dL (2.9-4.4); ALPHA 1 0.3 g/dL (0.0-0.4); ALPHA 2 0.5 g/dL (0.4-1.0); GAMMA 1.4 g/dL (0.4-1.8); PROTEIN TOTAL 5.7 g/dL (6.0-8.5); SPEP AG RATIO 0.8 (0.7-1.7)
[2020-06-09] MEDS: MICAFUNGIN 100 MG in IV DEXTROSE 5% 100ML 100 ML IV SCH (14:38)
[2020-06-09 15:00] VITALS: BP 149/68
--- NOTE | 2020-06-09 15:31 | NUR ---
Wound/Ostomy Care Wound Type/Assessment: Patient seen per wound care follow up regarding s/p I&D on 06/08/20 of left labia abscess. All packing removed and wound cleansed, assessed, measured, and pictured. Treatment Recommendations/Plan: Recommendations to repack with 1/2 inch Iodoform packing, cover with absorbant pad, and mesh panty to keep dressing in place; and change daily. Education provided: Patient educated on dressing changes and nutrition for wound healing. Offloading surface/device: N/A Recommended Referrals/Tests: Follow up with surgery as instructed and wound care after discharge if needed. Discharge Recommendations for dressings: Continue current treatment. Dressing change instructions left in room. No other wounds noted upon complete head to toe assessment. Patient repositioned and bed lowered and call light in reach. Will follow patient regarding wound care. Spoke with RN regarding POC.
--- NOTE | 2020-06-09 17:29 | PDOC ---
F/U PHYSCH PROG NOTE Subjective: Seen for follow up. Progress is reviewed with nursing staff. Though she is reporting stable mood and denies depression. However, she appears frustrated with questions and wondering why psychiatry is following her though she has an out patient psychiatrist. She is explained regrading the need of visit since she is off of her psychotropics and has chances of relapse os symptoms. Denies SI or HI. Denies AVH. Objective: 14 point review of system is negative except for stated above Vital Signs: Vital Signs Date Time Temp Pulse Resp B/P (MAP) Pulse Ox O2 Delivery O2 Flow Rate FiO2 06/09/20 15:00 96.4 80 17 149/68 (95) 94 Room Air 96.4 06/09/20 11:00 2.0 Labs: Laboratory Tests Test 06/08/20 20:49 06/09/20 06:30 06/09/20 06:50 06/09/20 07:46 Glucose (Fingerstick) 235 mg/dL (70-99) H 186 mg/dL (70-99) H White Blood Count 2.3 x10^3/uL (4.0-11.0) L Red Blood Count 3.98 x10^6/uL (3.50-5.40) Hemoglobin 9.1 g/dL (12.0-15.5) L Hematocrit 29.6 % (36.0-47.0) L Mean Corpuscular Volume 75 fL (79-100) L Mean Corpuscular Hemoglobin 23 pg (25-35) L Mean Corpuscular Hemoglobin Concent 31 g/dL (31-37) Red Cell Distribution Width 19.5 % (11.5-14.5) H Platelet Count 33 x10^3/uL (140-400) L Neutrophils (%) (Auto) 61 % (31-73) Lymphocytes (%) (Auto) 23 % (24-48) L Monocytes (%) (Auto) 8 % (0-9) Eosinophils (%) (Auto) 8 % (0-3) H Basophils (%) (Auto) 1 % (0-3) Neutrophils # (Auto) 1.4 x10^3/uL (1.8-7.7) L Lymphocytes # (Auto) 0.5 x10^3/uL (1.0-4.8) L Monocytes # (Auto) 0.2 x10^3/uL (0.0-1.1) Eosinophils # (Auto) 0.2 x10^3/uL (0.0-0.7) Basophils # (Auto) 0.0 x10^3/uL (0.0-0.2) Sodium Level 140 mmol/L (136-145) Potassium Level 4.2 mmol/L (3.5-5.1) Chloride Level 107 mmol/L (98-107) Carbon Dioxide Level 29 mmol/L (21-32) Anion Gap 4 (6-14) L Blood Urea Nitrogen 8 mg/dL (7-20) Creatinine 1.1 mg/dL (0.6-1.0) H Estimated GFR (Cockcroft-Gault) 50.7 BUN/Creatinine Ratio 7 (6-20) Glucose Level 194 mg/dL (70-99) H Calcium Level 8.0 mg/dL (8.5-10.1) L Total Bilirubin 1.1 mg/dL (0.2-1.0) H Aspartate Amino Transferase (AST) 32 U/L (15-37) Alanine Aminotransferase (ALT) 18 U/L (14-59) Alkaline Phosphatase 73 U/L (46-116) Total Protein 5.5 g/dL (6.4-8.2) L Albumin 1.9 g/dL (3.4-5.0) L Albumin/Globulin Ratio 0.5 (1.0-1.7) L Test 06/09/20 11:41 06/09/20 16:56 Glucose (Fingerstick) 238 mg/dL (70-99) H 239 mg/dL (70-99) H Laboratory Tests 06/09/20 06:30 Laboratory Tests 06/09/20 06:50 Medications: Current Medications Medications (Trade) Dose Ordered Sig/Boyd Start Time Stop Time Status Last Admin Dose Admin Acetaminophen/ Hydrocodone Bitart (Lortab 5/325) 1 tab PRN Q4HRS PRN 06/06/20 11:00 06/07/20 23:33 1 TAB Dexamethasone Sodium Phosphate (Decadron) 4 mg STK-MED ONCE 06/08/20 11:51 06/08/20 11:51 DC Dextrose (Dextrose 50%-Water Syringe) 12.5 gm PRN Q15MIN PRN 06/06/20 13:30 06/06/20 13:39 DC Fentanyl Citrate (Fentanyl 2ml Vial) 100 mcg STK-MED ONCE 06/08/20 13:09 06/08/20 13:09 DC Fish Oil (Fish Oil) 1,000 mg DAILY 06/07/20 09:00 06/09/20 09:00 1,000 MG Hydromorphone HCl (Dilaudid) 1 mg 1X ONCE 06/05/20 18:15 06/05/20 18:16 DC 06/05/20 18:26 1 MG Info (CONTRAST GIVEN -- Rx MONITORING) 1 each PRN DAILY PRN 06/05/20 19:15 06/07/20 19:14 DC Insulin Glargine (Lantus Syringe) 10 unit QHS 06/07/20 21:00 06/08/20 20:37 10 UNIT Insulin Human Lispro (HumaLOG VIAL for OP,RR ONLY) 0-10 units PRN Q1HR PRN 06/08/20 13:30 06/09/20 08:44 DC 06/08/20 13:25 6 UNIT Insulin Human Lispro (HumaLOG) 0-5 UNITS TIDWMEALS 06/06/20 17:00 06/09/20 12:17 3 UNITS Iohexol (Omnipaque 300 Mg/ml) 60 ml 1X ONCE 06/05/20 19:00 06/05/20 19:07 DC 06/05/20 19:15 60 ML Lactobacillus Rhamnosus (Culturelle) 1 cap BID 06/07/20 21:00 06/09/20 09:00 1 CAP Lactulose (Lactulose) 20 gm TID 06/06/20 14:00 06/09/20 14:38 20 GM Levothyroxine Sodium (Synthroid) 50 mcg DAILY06 06/06/20 15:00 06/09/20 05:54 50 MCG Lidocaine HCl (Lidocaine Pf 2% Vial) 5 ml STK-MED ONCE 06/08/20 11:51 06/08/20 11:51 DC Lidocaine HCl (Xylocaine-Mpf 1% 2ml Vial) 2 ml PRN 1X PRN 06/08/20 10:00 06/09/20 09:59 DC Linezolid (Zyvox) 600 mg BID 06/09/20 21:00 Micafungin Sodium 100 mg/Dextrose 100 ml @ 100 mls/hr Q24H 06/07/20 12:00 06/09/20 14:38 100 MLS/HR Midodrine (Proamatine) 10 mg [id number] 06/06/20 14:30 Morphine Sulfate (Morphine Sulfate) 2 mg PRN Q2HR PRN 06/07/20 00:30 06/09/20 14:37 2 MG Ondansetron HCl (Zofran) 4 mg STK-MED ONCE 06/08/20 11:51 06/08/20 11:51 DC Oxycodone/ Acetaminophen (Percocet 5/325) 2 tab PRN Q4HRS PRN 06/08/20 13:00 06/09/20 09:01 2 TAB Pantoprazole Sodium (Protonix) 40 mg BIDAC 06/06/20 16:30 06/09/20 09:00 40 MG Piperacillin Sod/ Tazobactam Sod (Zosyn Per Pharmacy) 1 each PRN DAILY PRN 06/06/20 12:45 Piperacillin Sod/ Tazobactam Sod 3.375 gm/Sodium Chloride 50 ml @ 100 mls/hr Q6HRS 06/06/20 13:30 06/09/20 12:13 100 MLS/HR Polyethylene Glycol (miraLAX PACKET) 17 gm PRN DAILY PRN 06/07/20 11:00 Propofol (Diprivan) 200 mg STK-MED ONCE 06/08/20 11:51 06/08/20 11:51 DC Psyllium Hydrophilic Mucilloid (Metamucil Fiber Packet) 1 pkt DAILY 06/07/20 11:00 06/09/20 09:00 1 PKT Rifaximin (Xifaxan) 550 mg BID 06/06/20 15:00 06/09/20 09:00 550 MG Ringer's Solution 1,000 ml @ 30 mls/hr Q24H 06/08/20 13:07 06/09/20 01:06 DC Sevoflurane (Ultane) 30 ml STK-MED ONCE 06/08/20 12:10 06/08/20 12:10 DC Sodium Chloride 1,000 ml @ 70 mls/hr [id number] 06/06/20 01:00 06/08/20 15:32 70 MLS/HR Vancomycin HCl (Vanco Per Pharmacy) 1 each PRN DAILY PRN 06/06/20 12:45 06/09/20 13:41 DC 06/08/20 16:04 1 EACH Vancomycin HCl (Vancomycin Trough Level) 1 each 1X ONCE 06/07/20 08:30 06/07/20 08:31 DC 06/07/20 08:20 1 EACH Vancomycin HCl 1.75 gm/Sodium Chloride 500 ml @ 250 mls/hr Q18H 06/06/20 15:00 06/09/20 12:08 DC 06/08/20 20:31 250 MLS/HR Vancomycin HCl 2 gm/Sodium Chloride 500 ml @ 250 mls/hr 1X ONCE 06/05/20 20:30 06/05/20 22:29 DC 06/05/20 20:53 250 MLS/HR Physical Exam: Mental Status Exam: 60-year-old female appears her stated age Cooperative and interactive Alert and oriented Thought processes goal-directed Denies auditory or visual hallucinations no abnormal perception noted. Denies suicidal or homicidal thoughts. Mood is okay Affect is constricted Insight is fair Judgment is fair Impulse control is fair attention span and concentration fair Recent and remote memory intact Physical Exam: Refer to Physician's note. LEGAL CONSULTANT: No focal deficit MSK: No EPS, TDK, or abnormal involuntary movements Diagnosis: Bipolar mood disorder 1, most recent episode depressed in partial remission Generalized anxiety disorder Assessment: She is a 60-year-old female with history of bipolar mood disorder 1, with most recent episode depressed apparently and partial remission. She has lifelong history of bipolar mood disorder with most recent episode depressive for the most part. She reports reasonable stability with current regimen of bupropion and Topamax. Though she is off of medication, she denies overt depression or anxiety. No mood oscillations reported. 06/09/20 Today she appears some what irritable with questions. Plan: With given pancytopenia, options of psychotropics are limited. In case of worsening depression bupropion can be started. However for mood stability, antiepileptics are associated with bone marrow suppression including Topamax. Avoid Topamax. Risks, benefits, alternatives of the treatment and no treatment are discussed. Adverse drug reaction of the medications including Topamax and Wellbutrin are also discussed. Monitor for symptomatology, safety, and adverse drug reaction. Thank you for involving inpatient care for KAMILLA TIRADO MD Jun 09, 2020 17:29
[2020-06-09 19:00] VITALS: BP 165/70
[2020-06-09] MEDS: LINEZOLID 600 MG TABLET PO SCH (20:37)
[2020-06-09] MEDS: INSULIN GLARGINE SYRINGE. SQ SCH (21:23)
[2020-06-09 23:00] VITALS: BP 151/67
[2020-06-10] MEDS: PIPERACILLIN/TAZOBACTAM 3.375 GM in IV NORMAL SALINE 50ML 50 ML IV SCH ×5 (00:32→23:54)
[2020-06-10 03:00] VITALS: BP 156/77
[2020-06-10] MEDS: MORPHINE SULFATE 2 MG/ML VIAL. IV PRN ×4 (03:14→19:29)
[2020-06-10] MEDS: IV NORMAL SALINE 1000ML BAG 1,000 ML IV SCH ×3 (03:34→20:39)
[2020-06-10] MEDS: LEVOTHYROXINE 50 MCG TABLET PO SCH (06:07)
[2020-06-10 07:00] VITALS: BP 171/69
[2020-06-10] MEDS: MIDODRINE 5 MG TABLET PO SCH ×3 (07:00→18:00)
[2020-06-10] MEDS: INSULIN LISPRO 300 UNITS/3 ML VIAL. SQ SCH ×3 (08:00→17:45)
--- NOTE | 2020-06-10 08:49 | PDOC ---
[facility] PROGRESS NOTE Date of Service DOS: DATE: 06/10/20 TIME: 08:43 Chief Complaint Chief Complaint A/P: Cellulitis of groin and labia -ID consulted, vancomycin and Zosyn therapy for now. Topical antifungal. Abscess of left perineal region Sepsis - due to cellulitis of groin failing outpatient therapy Severe protein calorie malnutrition -likely secondary to cirrhosis, will consult dietitian Pancytopenia - noted previously, her anemia and thrombocytopenia can be explained with her cirrhosis, her leukopenia however is not clear in its etiology. Diabetes -will place on insulin therapy while inpatient. Hold metformin. MACDONALD -with cirrhosis status post TIPS. Bipolar disease -we will consult psychiatry for medication recommendations. Hypothyroidism -continue levothyroxine Morbid obesity -counseled on weight loss techniques History of Present Illness History of Present Illness Ms Ashraf is a 59-year-old female with a history of diabetes, MACDONALD with cirrhosis s/p TIPS, bipolar disease, hypothyroidism, anemia, thrombocytopenia, and morbid obesity admitted with rash, neutropenia who presents with a chief complaint of groin discomfort. Patient states over the past 5 days she has had redness and swelling to her vulvar region. She stated 5 days ago she was seen in urgent care and prescribed nystatin powder and doxycycline for an infection, but did not seem to improve. No vaginal discharge or bleeding and denies any pain with bowel movement. She does note some burning sensation when she urinates. Noted with pancytopenia WBC 1.5, platelets 32, Hb 9.4 albumin 2, glucose 281. Admitted for failure of outpatient antibiotic therapy for groin cellulitis on vancomycin and Zosyn. 06/07: Afebrile. No BM last day despite her lactulose dosing.Pain is controlled with IV morphine. She does not feel her groin is improving. 06/08: Afebrile. Some more drainage from left perineal area, had surgical evalua tion, I&D with cultures. 06/09: Afebrile. Labs stable. e coli, enterococcus fecalis and grp b strep on culture Afebrile. She is feeling slightly better today. Wounds are seen less red and angry. No shortness of breath or chest pain. Vitals/I&O Vitals/I&O: Vital Signs Date Time Temp Pulse Resp B/P (MAP) Pulse Ox O2 Delivery O2 Flow Rate FiO2 06/10/20 06:27 20 Room Air 06/10/20 03:00 97.9 91 156/77 (103) 90 2.0 97.9 I & O 06/09/20 06/09/20 06/10/20 15:00 23:00 07:00 Intake Total 150 ml 50 ml Balance 150 ml 50 ml Physical Exam Physical Exam: GENERAL: Alert and oriented x 3 female, lying in bed comfortably, in no acute distress. HEENT: Normocephalic, atraumatic, anicteric. NECK: Supple, no JVD. LUNGS: Clear bilaterally. No wheezing. HEART: S1, S2. No gallops or murmurs. ABDOMEN: Soft, nontender, nondistended. GENITOURINARY: ,Erythema both thighs, dressing not taken down DERMATOLOGIC: Warm, dry. No generalized rash except for above. CENTRAL NERVOUS SYSTEM: Alert and oriented x 3, grossly nonfocal. PSYCHIATRIC: Cooperative, appropriate mood and affect. General: Alert, Cooperative Heart: Regular rate, Normal S1, Normal S2 Lungs: Clear Abdomen: Soft, Other (obese, ND, NTTP) Extremities: No clubbing, No cyanosis Skin: Other (wound with packing, erythema looks better ) Labs Labs: Laboratory Tests Test 06/09/20 11:41 06/09/20 16:56 06/09/20 20:43 06/10/20 08:31 Glucose (Fingerstick) 238 mg/dL (70-99) 239 mg/dL (70-99) 243 mg/dL (70-99) 193 mg/dL (70-99) Assessment and Plan Assessmemt and Plan Problems Medical Problems: (1) Cellulitis, perineum Status: Acute (2) MACDONALD (nonalcoholic steatohepatitis) Status: Acute Comment Review of Relevant I have reviewed the following items tano (where applicable) has been applied. Medications: Current Medications Medications (Trade) Dose Ordered Sig/Boyd Route PRN Reason Start Time Stop Time Status Last Admin Dose Admin Linezolid (Zyvox) 600 mg BID PO 06/09/20 21:00 06/09/20 20:37 Justifications for Admission Other Justification MERARI CARDOSO MD Jun 10, 2020 08:49
--- NOTE | 2020-06-10 09:54 | NUR ---
SW following. Discussed with RN, pt from home, ada diet, room air. Cultures pending. PT/OT ordered. Currently on IV abx. SW will continue to follow.
[2020-06-10] MEDS: LACTOBACILLUS RHAMNOSUS GG 1 CAPSULE. PO SCH ×2 (10:22→20:40)
[2020-06-10] MEDS: PANTOPRAZOLE 40 MG TABLET.DR. PO SCH ×2 (10:23→17:42)
[2020-06-10] MEDS: LACTULOSE 20 GM/30 ML SOLUTION. PO SCH ×3 (10:23→20:49)
[2020-06-10] MEDS: OMEGA-3 FATTY ACIDS/FISH OIL 1,000 MG CAPSULE. PO SCH (10:23)
[2020-06-10] MEDS: rifAXIMin 550 MG TABLET PO SCH ×2 (10:23→20:40)
[2020-06-10] MEDS: LINEZOLID 600 MG TABLET PO SCH ×2 (10:23→20:40)
[2020-06-10] MEDS: PSYLLIUM HUSK (SUGAR FREE) 1 PKT PACKET PO SCH (10:23)
[2020-06-10] MEDS: POLYETHYLENE GLYCOL 3350 17 GM PACKET. PO SCH ×3 (10:24→20:39)
[2020-06-10] MEDS: oxyCODONE/APAP 5/325 1 TAB TABLET PO PRN ×2 (10:28→17:43)
--- NOTE | 2020-06-10 10:40 | PDOC ---
Infectious Disease Note Subjective: Subjective Patient says feels better Postop pain is under control Denies fever, nausea, vomiting, shortness of breath, diarrhea, abdominal pain, rash Otherwise as above Vital Signs: Vital Signs Vital Signs Date Time Temp Pulse Resp B/P (MAP) Pulse Ox O2 Delivery O2 Flow Rate FiO2 06/10/20 07:00 97.8 93 17 171/69 (103) 93 Room Air 97.8 06/10/20 03:00 2.0 Physical Exam: PHYSICAL EXAM GENERAL: Alert and oriented x 3 female, lying in bed comfortably, in no acute distress. HEENT: Normocephalic, atraumatic, anicteric. NECK: Supple, no JVD. LUNGS: Clear bilaterally. No wheezing. HEART: S1, S2. No gallops or murmurs. ABDOMEN: Soft, nontender, nondistended. GENITOURINARY: ,Erythema both thighs improving, swelling and induration left perineum improving DERMATOLOGIC: Warm, dry. No generalized rash except for above. CENTRAL NERVOUS SYSTEM: Alert and oriented x 3, grossly nonfocal. PSYCHIATRIC: Cooperative, appropriate mood and affect. Medications: Inpatient Meds: Current Medications Medications (Trade) Dose Ordered Sig/Boyd Start Time Stop Time Status Last Admin Dose Admin Acetaminophen/ Hydrocodone Bitart (Lortab 5/325) 1 tab PRN Q4HRS PRN 06/06/20 11:00 06/07/20 23:33 1 TAB Dexamethasone Sodium Phosphate (Decadron) 4 mg STK-MED ONCE 06/08/20 11:51 06/08/20 11:51 DC Dextrose (Dextrose 50%-Water Syringe) 12.5 gm PRN Q15MIN PRN 06/06/20 13:30 06/06/20 13:39 DC Fentanyl Citrate (Fentanyl 2ml Vial) 100 mcg STK-MED ONCE 06/08/20 13:09 06/08/20 13:09 DC Fish Oil (Fish Oil) 1,000 mg DAILY 06/07/20 09:00 06/10/20 10:23 1,000 MG Hydromorphone HCl (Dilaudid) 1 mg 1X ONCE 06/05/20 18:15 06/05/20 18:16 DC 06/05/20 18:26 1 MG Info (CONTRAST GIVEN -- Rx MONITORING) 1 each PRN DAILY PRN 06/05/20 19:15 8/31/20 19:14 DC Insulin Glargine (Lantus Syringe) 10 unit QHS 06/07/20 21:00 06/09/20 21:23 10 UNIT Insulin Human Lispro (HumaLOG VIAL for OP,RR ONLY) 0-10 units PRN Q1HR PRN 06/08/20 13:30 06/09/20 08:44 DC 06/08/20 13:25 6 UNIT Insulin Human Lispro (HumaLOG) 0-5 UNITS TIDWMEALS 06/06/20 17:00 06/09/20 12:17 3 UNITS Iohexol (Omnipaque 300 Mg/ml) 60 ml 1X ONCE 06/05/20 19:00 06/05/20 19:07 DC 06/05/20 19:15 60 ML Lactobacillus Rhamnosus (Culturelle) 1 cap BID 06/07/20 21:00 06/10/20 10:22 1 CAP Lactulose (Lactulose) 20 gm TID 06/06/20 14:00 06/10/20 10:23 20 GM Levothyroxine Sodium (Synthroid) 50 mcg DAILY06 06/06/20 15:00 06/10/20 06:07 50 MCG Lidocaine HCl (Lidocaine Pf 2% Vial) 5 ml STK-MED ONCE 06/08/20 11:51 06/08/20 11:51 DC Lidocaine HCl (Xylocaine-Mpf 1% 2ml Vial) 2 ml PRN 1X PRN 06/08/20 10:00 06/09/20 09:59 DC Linezolid (Zyvox) 600 mg BID 06/09/20 21:00 06/10/20 10:23 600 MG Micafungin Sodium 100 mg/Dextrose 100 ml @ 100 mls/hr Q24H 06/07/20 12:00 06/09/20 14:38 100 MLS/HR Midodrine (Proamatine) 10 mg [id number] 06/06/20 14:30 Morphine Sulfate (Morphine Sulfate) 2 mg PRN Q2HR PRN 06/07/20 00:30 06/10/20 06:27 2 MG Ondansetron HCl (Zofran) 4 mg STK-MED ONCE 06/08/20 11:51 06/08/20 11:51 DC Oxycodone/ Acetaminophen (Percocet 5/325) 2 tab PRN Q4HRS PRN 06/08/20 13:00 06/10/20 10:28 2 TAB Pantoprazole Sodium (Protonix) 40 mg BIDAC 06/06/20 16:30 06/10/20 10:23 40 MG Piperacillin Sod/ Tazobactam Sod (Zosyn Per Pharmacy) 1 each PRN DAILY PRN 06/06/20 12:45 Piperacillin Sod/ Tazobactam Sod 3.375 gm/Sodium Chloride 50 ml @ 100 mls/hr Q6HRS 06/06/20 13:30 06/10/20 06:07 100 MLS/HR Polyethylene Glycol (miraLAX PACKET) 17 gm PRN DAILY PRN 06/07/20 11:00 Propofol (Diprivan) 200 mg STK-MED ONCE 06/08/20 11:51 06/08/20 11:51 DC Psyllium Hydrophilic Mucilloid (Metamucil Fiber Packet) 1 pkt DAILY 06/07/20 11:00 06/10/20 10:23 1 PKT Rifaximin (Xifaxan) 550 mg BID 06/06/20 15:00 06/10/20 10:23 550 MG Ringer's Solution 1,000 ml @ 30 mls/hr Q24H 06/08/20 13:07 06/09/20 01:06 DC Sevoflurane (Ultane) 30 ml STK-MED ONCE 06/08/20 12:10 06/08/20 12:10 DC Sodium Chloride 1,000 ml @ 70 mls/hr [id number] 06/06/20 01:00 06/10/20 03:34 70 MLS/HR Vancomycin HCl (Vanco Per Pharmacy) 1 each PRN DAILY PRN 06/06/20 12:45 06/09/20 13:41 DC 06/08/20 16:04 1 EACH Vancomycin HCl (Vancomycin Trough Level) 1 each 1X ONCE 06/07/20 08:30 06/07/20 08:31 DC 06/07/20 08:20 1 EACH Vancomycin HCl 1.75 gm/Sodium Chloride 500 ml @ 250 mls/hr Q18H 06/06/20 15:00 06/09/20 12:08 DC 06/08/20 20:31 250 MLS/HR Vancomycin HCl 2 gm/Sodium Chloride 500 ml @ 250 mls/hr 1X ONCE 06/05/20 20:30 06/05/20 22:29 DC 06/05/20 20:53 250 MLS/HR Labs: Lab Laboratory Tests Test 06/09/20 11:41 06/09/20 16:56 06/09/20 20:43 06/10/20 08:31 Glucose (Fingerstick) 238 mg/dL (70-99) 239 mg/dL (70-99) 243 mg/dL (70-99) 193 mg/dL (70-99) Micro MIXED AEROBIC SOPHIA on 06/07/20 at 1324 INCLUDING: MODERATE [ESCHERICHIA COLI] MODERATE [BETA STREP GROUP B] MODERATE [ENTEROCOCCUS FAECALIS] ESCHERICHIA COLI ENTEROCOCCUS FAECALIS BETA STREP GROUP B Objective: Assessment: 1. Cellulitis/abscess Lt vulvar area, Cellulitis over the left thigh and groin area, some on the right. cults positive for e coli, enterococcus fecalis and grp b strep 2. Pancytopenia, leukopenia hematology following 3. History of MACDONALD, status post TIPS. 4. History of varices and encephalopathy. 5. Lactic acidosis, resolved. 6. Diabetes. 7. History of bipolar disorder. Plan: Plan of Care Continue Zosyn. DC micafungin Follow culture results Continue local wound care as directed Follow up labs and cultures. Continue supportive care. 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
[2020-06-10 11:00] VITALS: BP 123/78
--- NOTE | 2020-06-10 11:58 | PDOC ---
Date of Service: DATE: 06/10/20 TIME: 11:56 Subjective: Subjective: Not eating much, just doesn't feel hungry. No abd pain. Stooling. Objective: Vital Signs: Vital Signs Date Time Temp Pulse Resp B/P (MAP) Pulse Ox O2 Delivery O2 Flow Rate FiO2 06/10/20 11:00 97.2 88 17 123/78 (93) 92 Nasal Cannula 97.2 06/10/20 03:00 2.0 Labs: Laboratory Tests Test 06/09/20 16:56 06/09/20 20:43 06/10/20 08:31 Glucose (Fingerstick) 239 mg/dL 243 mg/dL 193 mg/dL GRAM STAIN Final Final GRAM NEGATIVE RODS:RARE SQUAMOUS EPI CELL:RARE PMN (WBCs):RARE Unless otherwise specified, Testing Performed by: [address] [address] For Inquires, the Physician may contact the Microbiology department at [phone] ANAEROBIC-AEROBIC CULTURE Preliminary Preliminary FEW GRAM NEGATIVE RODS on 06/09/20 at 1044 FINAL ID= [ESCHERICHIA COLI] RARE YEAST on 06/10/20 at 1142 FINAL ID= [ABIGAIL ALBICANS] ESCHERICHIA COLI ABIGAIL ALBICANS ANTIMICROBIAL SUSCEPTIBILITY Preliminary Comment NEG [place] 56 ESCHERICHIA COLI ANTIBIOTIC RESULT INTERPRETATION AMPICILLIN/SULBACTAM >16/8 R AMIKACIN <=16 S AMPICILLIN >16 R AMOXICILLIN/K CLAVULANATE >16/8 R AZTREONAM <=4 S CEFTRIAXONE <=1 S CEFTAZIDIME <=1 S CEFOTAXIME <=2 S CONTINUED ON NEXT PAGE RUN DATE: 06/10/20 [facility] *LIVE* PAGE 2 RUN TIME: 1146 Specimen Inquiry SPEC: [id number] PATIENT: JOO BOYER [id number] (Continued) Procedure Result ANTIMICROBIAL SUSCEPTIBILITY Preliminary (continued) CEFOXITIN <=8 S CIPROFLOXACIN <=0.25 S CEFEPIME <=2 S CEFUROXIME 8 S CEFTAZIDIME/AVIBACTAM <=4 S ERTAPENEM <=0.5 S GENTAMICIN <=2 S LEVOFLOXACIN <=0.5 S MEROPENEM <=1 S PIPERACILLIN/TAZOBACTAM <=8 S TRIMETHOPRIM/SULFAMETHOXAZOLE <=0.5/9.5 S TETRACYCLINE <=4 S TOBRAMYCIN <=2 S Unless otherwise specified, Testing Performed by: [address] [id number] For Inquires, the Physician may contact the Microbiology department at [phone] BLOOD CULTURE Preliminary NO GROWTH AFTER 4 DAYS PE: GEN: NAD LUNGS: CTAB HEART: RRR ABD: non-tender NEURO/PSYCH: A & O 3, quiet/flat A/P: S/p I&D perineal abscess MACDONALD cirrhosis s/p TIPS (occluded per pt), h/o varices and encephalopathy Pancytopenia, BELTRAN - chronic H/o DU - on PPI -- Continue PPI, lactulose, Xifaxan. Encouraged PO. Justicifation of Admission Dx: Justifications for Admission: Justification of Admission Dx: Yes Cellulitis: Cellulitis BOBBY MURILLO Jun 10, 2020 11:58
[2020-06-10 15:00] VITALS: BP 166/75
[2020-06-10] MEDS: ONDANSETRON PF 4 MG/2 ML VIAL. IVP PRN ×2 (15:06→23:54)
[2020-06-10 19:00] VITALS: BP 156/64
[2020-06-10] MEDS: INSULIN GLARGINE SYRINGE. SQ SCH (20:43)
[2020-06-10 23:00] VITALS: BP 144/60
[2020-06-11] VITALS: BP 144/90
[2020-06-11] MEDS: MORPHINE SULFATE 2 MG/ML VIAL. IV PRN ×2 (02:36→06:32)
[2020-06-11 03:00] VITALS: BP 144/90
[2020-06-11 04:37] LABS: BASO % 1 % (0-3); EOS # 0.1 x10^3/uL (0.0-0.7); EOS % 7 % (0-3); HEMATOCRIT 28.9 % (36.0-47.0); HEMOGLOBIN 9.1 g/dL (12.0-15.5); LYMPH # 0.5 x10^3/uL (1.0-4.8); LYMPH % 25 % (24-48); MEAN CORPUSCULAR HEMOGLOBIN 24 pg (25-35); MEAN CORPUSCULAR HGB CONC 32 g/dL (31-37); MEAN CORPUSCULAR VOLUME 74 fL (79-100); MONO # 0.2 x10^3/uL (0.0-1.1); MONO % 8 % (0-9); NEUT # 1.3 x10^3/uL (1.8-7.7); NEUT % 61 % (31-73); PLATELET COUNT 33 x10^3/uL (140-400); RED BLOOD COUNT 3.89 x10^6/uL (3.50-5.40); RED CELL DISTRIBUTION WIDTH 19.5 % (11.5-14.5); WHITE BLOOD COUNT 2.2 x10^3/uL (4.0-11.0)
[2020-06-11 05:09] LABS: ALBUMIN 1.9 g/dL (3.4-5.0); ALBUMIN/GLOBULIN RATIO 0.5 (1.0-1.7); CALCIUM 7.8 mg/dL (8.5-10.1); CREATININE 1.1 mg/dL (0.6-1.0); GFR 50.7; POTASSIUM 3.9 mmol/L (3.5-5.1); TOTAL BILIRUBIN 1.2 mg/dL (0.2-1.0); TOTAL PROTEIN 5.8 g/dL (6.4-8.2)
[2020-06-11] MEDS: MIDODRINE 5 MG TABLET PO SCH ×2 (06:30→13:00)
[2020-06-11] MEDS: PIPERACILLIN/TAZOBACTAM 3.375 GM in IV NORMAL SALINE 50ML 50 ML IV SCH (06:30)
[2020-06-11] MEDS: ONDANSETRON PF 4 MG/2 ML VIAL. IVP PRN ×2 (06:31→13:11)
[2020-06-11] MEDS: LEVOTHYROXINE 50 MCG TABLET PO SCH (06:31)
[2020-06-11] MEDS: PANTOPRAZOLE 40 MG TABLET.DR. PO SCH (06:31)
[2020-06-11 07:15] VITALS: BP 152/62
--- NOTE | 2020-06-11 08:08 | PDOC ---
[employer] PROGRESS NOTE Date of Service DOS: DATE: 06/11/20 TIME: 08:07 Chief Complaint Chief Complaint A/P: Cellulitis of groin and labia -ID consulted, cefdinir and antifungal Abscess of left perineal region Sepsis - due to cellulitis of groin failing outpatient therapy Severe protein calorie malnutrition -likely secondary to cirrhosis, will consult dietitian Pancytopenia - noted previously, her anemia and thrombocytopenia can be explained with her cirrhosis, her leukopenia however is not clear in its etiology. Diabetes -will place on insulin therapy while inpatient. Hold metformin. MACDONALD -with cirrhosis status post TIPS, apparently TIPS is occluded Bipolar disease -we will consult psychiatry for medication recommendations. Hypothyroidism -continue levothyroxine Morbid obesity -counseled on weight loss techniques History of Present Illness History of Present Illness Ms Ashraf is a 59-year-old female with a history of diabetes, MACDONALD with cirrhosis s/p TIPS, bipolar disease, hypothyroidism, anemia, thrombocytopenia, and morbid obesity admitted with rash, neutropenia who presents with a chief complaint of groin discomfort. Patient states over the past 5 days she has had redness and swelling to her vulvar region. She stated 5 days ago she was seen in urgent care and prescribed nystatin powder and doxycycline for an infection, but did not seem to improve. No vaginal discharge or bleeding and denies any pain with bowel movement. She does note some burning sensation when she urinates. Noted with pancytopenia WBC 1.5, platelets 32, Hb 9.4 albumin 2, glucose 281. Admitted for failure of outpatient antibiotic therapy for groin cellulitis on vancomycin and Zosyn. 06/07: Afebrile. No BM last day despite her lactulose dosing.Pain is controlled with IV morphine. She does not feel her groin is improving. 06/08: Afebrile. Some more drainage from left perineal area, had surgical evaluation, I&D with cultures. 06/09: Afebrile. Labs stable. e coli, enterococcus fecalis and grp b strep on culture 06/10: Afebrile. She is feeling slightly better today. Wounds are seen less red and angry. No shortness of breath or chest pain. Afebrile. Labs stable, E. coli sensitivities returned resistant to Augmentin and ampicillin, sensitive to zosyn. Changed to fluconazole and cefdinir per ID. Feels much better. Postop pain is under control and she is seen ambulating in the hallway Denies fever, nausea, vomiting, shortness of breath, diarrhea, abdominal pain, rash, but does note a dark stool, worried about her h/o varices. Reassured her Hb is stable. Vitals/I&O Vitals/I&O: Vital Signs Date Time Temp Pulse Resp B/P (MAP) Pulse Ox O2 Delivery O2 Flow Rate FiO2 06/11/20 06:32 17 94 Nasal Cannula 2.0 06/11/20 06:30 90 156/64 06/11/20 03:00 98.1 98.1 I & O 06/10/20 06/10/20 06/11/20 15:00 23:00 07:00 Intake Total 240 ml 50 ml Balance 240 ml 50 ml Physical Exam Physical Exam: GENERAL: Alert and oriented x 3 female, lying in bed comfortably, in no acute distress. HEENT: Normocephalic, atraumatic, anicteric. NECK: Supple, no JVD. LUNGS: Clear bilaterally. No wheezing. HEART: S1, S2. No gallops or murmurs. ABDOMEN: Soft, nontender, nondistended. GENITOURINARY: ,Erythema both thighs improving, swelling and induration left perineum improving DERMATOLOGIC: Warm, dry. No generalized rash except for above. CENTRAL NERVOUS SYSTEM: Alert and oriented x 3, grossly nonfocal. PSYCHIATRIC: Cooperative, appropriate mood and affect. General: Alert, Cooperative Heart: Regular rate, Normal S1, Normal S2 Lungs: Clear Abdomen: Soft, Other (obese, ND, NTTP) Extremities: No clubbing, No cyanosis Skin: Other (wound with packing, erythema looks better ) Labs Labs: Laboratory Tests Test 06/10/20 08:31 06/10/20 12:06 06/10/20 17:10 06/10/20 20:33 Glucose (Fingerstick) 193 mg/dL (70-99) 209 mg/dL (70-99) 258 mg/dL (70-99) 344 mg/dL (70-99) Test 06/10/20 23:43 06/11/20 04:00 06/11/20 07:55 Glucose (Fingerstick) 284 mg/dL (70-99) 178 mg/dL (70-99) White Blood Count 2.2 x10^3/uL (4.0-11.0) Red Blood Count 3.89 x10^6/uL (3.50-5.40) Hemoglobin 9.1 g/dL (12.0-15.5) Hematocrit 28.9 % (36.0-47.0) Mean Corpuscular Volume 74 fL (79-100) Mean Corpuscular Hemoglobin 24 pg (25-35) Mean Corpuscular Hemoglobin Concent 32 g/dL (31-37) Red Cell Distribution Width 19.5 % (11.5-14.5) Platelet Count 33 x10^3/uL (140-400) Neutrophils (%) (Auto) 61 % (31-73) Lymphocytes (%) (Auto) 25 % (24-48) Monocytes (%) (Auto) 8 % (0-9) Eosinophils (%) (Auto) 7 % (0-3) Basophils (%) (Auto) 1 % (0-3) Neutrophils # (Auto) 1.3 x10^3/uL (1.8-7.7) Lymphocytes # (Auto) 0.5 x10^3/uL (1.0-4.8) Monocytes # (Auto) 0.2 x10^3/uL (0.0-1.1) Eosinophils # (Auto) 0.1 x10^3/uL (0.0-0.7) Basophils # (Auto) 0.0 x10^3/uL (0.0-0.2) Sodium Level 139 mmol/L (136-145) Potassium Level 3.9 mmol/L (3.5-5.1) Chloride Level 107 mmol/L (98-107) Carbon Dioxide Level 28 mmol/L (21-32) Anion Gap 4 (6-14) Blood Urea Nitrogen 8 mg/dL (7-20) Creatinine 1.1 mg/dL (0.6-1.0) Estimated GFR (Cockcroft-Gault) 50.7 BUN/Creatinine Ratio 7 (6-20) Glucose Level 222 mg/dL (70-99) Calcium Level 7.8 mg/dL (8.5-10.1) Total Bilirubin 1.2 mg/dL (0.2-1.0) Aspartate Amino Transf (AST/SGOT) 35 U/L (15-37) Alanine Aminotransferase (ALT/SGPT) 16 U/L (14-59) Alkaline Phosphatase 80 U/L (46-116) Total Protein 5.8 g/dL (6.4-8.2) Albumin 1.9 g/dL (3.4-5.0) Albumin/Globulin Ratio 0.5 (1.0-1.7) Assessment and Plan Assessmemt and Plan Problems Medical Problems: (1) Cellulitis, perineum Status: Acute (2) MACDONALD (nonalcoholic steatohepatitis) Status: Acute Comment Review of Relevant I have reviewed the following items tano (where applicable) has been applied. Medications: Current Medications Medications (Trade) Dose Ordered Sig/Boyd Route PRN Reason Start Time Stop Time Status Last Admin Dose Admin Ondansetron HCl (Zofran) 4 mg PRN Q6HRS PRN IVP NAUSEA/VOMITING 06/10/20 15:00 06/11/20 06:31 Justifications for Admission Other Justification MERARI CARDOSO MD Jun 11, 2020 08:08
--- NOTE | 2020-06-11 08:34 | PDOC ---
Infectious Disease Note Subjective: Subjective Patient says feels much better Postop pain is under control Ambulating in the hallway Denies fever, nausea, vomiting, shortness of breath, diarrhea, abdominal pain, rash Otherwise as above Vital Signs: Vital Signs Vital Signs Date Time Temp Pulse Resp B/P (MAP) Pulse Ox O2 Delivery O2 Flow Rate FiO2 06/11/20 06:32 17 94 Nasal Cannula 2.0 06/11/20 06:30 90 156/64 06/11/20 03:00 98.1 98.1 Physical Exam: PHYSICAL EXAM GENERAL: Alert and oriented x 3 female, lying in bed comfortably, in no acute distress. HEENT: Normocephalic, atraumatic, anicteric. NECK: Supple, no JVD. LUNGS: Clear bilaterally. No wheezing. HEART: S1, S2. No gallops or murmurs. ABDOMEN: Soft, nontender, nondistended. GENITOURINARY: ,Erythema both thighs improving, swelling and induration left perineum improving DERMATOLOGIC: Warm, dry. No generalized rash except for above. CENTRAL NERVOUS SYSTEM: Alert and oriented x 3, grossly nonfocal. PSYCHIATRIC: Cooperative, appropriate mood and affect. Medications: Inpatient Meds: Current Medications Medications (Trade) Dose Ordered Sig/Boyd Start Time Stop Time Status Last Admin Dose Admin Acetaminophen/ Hydrocodone Bitart (Lortab 5/325) 1 tab PRN Q4HRS PRN 06/06/20 11:00 06/07/20 23:33 1 TAB Dexamethasone Sodium Phosphate (Decadron) 4 mg STK-MED ONCE 06/08/20 11:51 06/08/20 11:51 DC Dextrose (Dextrose 50%-Water Syringe) 12.5 gm PRN Q15MIN PRN 06/06/20 13:30 06/06/20 13:39 DC Fentanyl Citrate (Fentanyl 2ml Vial) 100 mcg STK-MED ONCE 06/08/20 13:09 06/08/20 13:09 DC Fish Oil (Fish Oil) 1,000 mg DAILY 06/07/20 09:00 06/10/20 10:23 1,000 MG Hydromorphone HCl (Dilaudid) 1 mg 1X ONCE 06/05/20 18:15 06/05/20 18:16 DC 06/05/20 18:26 1 MG Info (CONTRAST GIVEN -- Rx MONITORING) 1 each PRN DAILY PRN 06/05/20 19:15 06/07/20 19:14 DC Insulin Glargine (Lantus Syringe) 10 unit QHS 06/07/20 21:00 06/10/20 20:43 10 UNIT Insulin Human Lispro (HumaLOG VIAL for OP,RR ONLY) 0-10 units PRN Q1HR PRN 06/08/20 13:30 06/09/20 08:44 DC 06/08/20 13:25 6 UNIT Insulin Human Lispro (HumaLOG) 0-5 UNITS TIDWMEALS 06/06/20 17:00 06/10/20 17:45 4 UNITS Iohexol (Omnipaque 300 Mg/ml) 60 ml 1X ONCE 06/05/20 19:00 06/05/20 19:07 DC 06/05/20 19:15 60 ML Lactobacillus Rhamnosus (Culturelle) 1 cap BID 06/07/20 21:00 06/10/20 20:40 1 CAP Lactulose (Lactulose) 20 gm TID 06/06/20 14:00 06/10/20 20:49 20 GM Levothyroxine Sodium (Synthroid) 50 mcg DAILY06 06/06/20 15:00 06/11/20 06:31 50 MCG Lidocaine HCl (Lidocaine Pf 2% Vial) 5 ml STK-MED ONCE 06/08/20 11:51 06/08/20 11:51 DC Lidocaine HCl (Xylocaine-Mpf 1% 2ml Vial) 2 ml PRN 1X PRN 06/08/20 10:00 06/09/20 09:59 DC Linezolid (Zyvox) 600 mg BID 06/09/20 21:00 06/10/20 20:40 600 MG Micafungin Sodium 100 mg/Dextrose 100 ml @ 100 mls/hr Q24H 06/07/20 12:00 06/10/20 14:44 DC 06/09/20 14:38 100 MLS/HR Midodrine (Proamatine) 10 mg [id number] 06/06/20 14:30 06/11/20 06:30 10 MG Morphine Sulfate (Morphine Sulfate) 2 mg PRN Q2HR PRN 06/07/20 00:30 06/11/20 06:32 2 MG Ondansetron HCl (Zofran) 4 mg PRN Q6HRS PRN 06/10/20 15:00 06/11/20 06:31 4 MG Oxycodone/ Acetaminophen (Percocet 5/325) 2 tab PRN Q4HRS PRN 06/08/20 13:00 06/10/20 17:43 2 TAB Pantoprazole Sodium (Protonix) 40 mg BIDAC 06/06/20 16:30 06/11/20 06:31 40 MG Piperacillin Sod/ Tazobactam Sod (Zosyn Per Pharmacy) 1 each PRN DAILY PRN 06/06/20 12:45 Piperacillin Sod/ Tazobactam Sod 3.375 gm/Sodium Chloride 50 ml @ 100 mls/hr Q6HRS 06/06/20 13:30 06/11/20 06:30 100 MLS/HR Polyethylene Glycol (miraLAX PACKET) 17 gm PRN DAILY PRN 06/07/20 11:00 Propofol (Diprivan) 200 mg STK-MED ONCE 06/08/20 11:51 06/08/20 11:51 DC Psyllium Hydrophilic Mucilloid (Metamucil Fiber Packet) 1 pkt DAILY 06/07/20 11:00 06/10/20 10:23 1 PKT Rifaximin (Xifaxan) 550 mg BID 06/06/20 15:00 06/10/20 20:40 550 MG Ringer's Solution 1,000 ml @ 30 mls/hr Q24H 06/08/20 13:07 06/09/20 01:06 DC Sevoflurane (Ultane) 30 ml STK-MED ONCE 06/08/20 12:10 06/08/20 12:10 DC Sodium Chloride 1,000 ml @ 70 mls/hr [id number] 06/06/20 01:00 06/10/20 20:39 70 MLS/HR Vancomycin HCl (Vanco Per Pharmacy) 1 each PRN DAILY PRN 06/06/20 12:45 06/09/20 13:41 DC 06/08/20 16:04 1 EACH Vancomycin HCl (Vancomycin Trough Level) 1 each 1X ONCE 06/07/20 08:30 06/07/20 08:31 DC 06/07/20 08:20 1 EACH Vancomycin HCl 1.75 gm/Sodium Chloride 500 ml @ 250 mls/hr Q18H 06/06/20 15:00 06/09/20 12:08 DC 06/08/20 20:31 250 MLS/HR Vancomycin HCl 2 gm/Sodium Chloride 500 ml @ 250 mls/hr 1X ONCE 06/05/20 20:30 06/05/20 22:29 DC 06/05/20 20:53 250 MLS/HR Labs: Lab Laboratory Tests Test 06/10/20 12:06 06/10/20 17:10 06/10/20 20:33 06/10/20 23:43 Glucose (Fingerstick) 209 mg/dL (70-99) 258 mg/dL (70-99) 344 mg/dL (70-99) 284 mg/dL (70-99) Test 06/11/20 04:00 06/11/20 07:55 White Blood Count 2.2 x10^3/uL (4.0-11.0) Red Blood Count 3.89 x10^6/uL (3.50-5.40) Hemoglobin 9.1 g/dL (12.0-15.5) Hematocrit 28.9 % (36.0-47.0) Mean Corpuscular Volume 74 fL (79-100) Mean Corpuscular Hemoglobin 24 pg (25-35) Mean Corpuscular Hemoglobin Concent 32 g/dL (31-37) Red Cell Distribution Width 19.5 % (11.5-14.5) Platelet Count 33 x10^3/uL (140-400) Neutrophils (%) (Auto) 61 % (31-73) Lymphocytes (%) (Auto) 25 % (24-48) Monocytes (%) (Auto) 8 % (0-9) Eosinophils (%) (Auto) 7 % (0-3) Basophils (%) (Auto) 1 % (0-3) Neutrophils # (Auto) 1.3 x10^3/uL (1.8-7.7) Lymphocytes # (Auto) 0.5 x10^3/uL (1.0-4.8) Monocytes # (Auto) 0.2 x10^3/uL (0.0-1.1) Eosinophils # (Auto) 0.1 x10^3/uL (0.0-0.7) Basophils # (Auto) 0.0 x10^3/uL (0.0-0.2) Sodium Level 139 mmol/L (136-145) Potassium Level 3.9 mmol/L (3.5-5.1) Chloride Level 107 mmol/L (98-107) Carbon Dioxide Level 28 mmol/L (21-32) Anion Gap 4 (6-14) Blood Urea Nitrogen 8 mg/dL (7-20) Creatinine 1.1 mg/dL (0.6-1.0) Estimated GFR (Cockcroft-Gault) 50.7 BUN/Creatinine Ratio 7 (6-20) Glucose Level 222 mg/dL (70-99) Calcium Level 7.8 mg/dL (8.5-10.1) Total Bilirubin 1.2 mg/dL (0.2-1.0) Aspartate Amino Transf (AST/SGOT) 35 U/L (15-37) Alanine Aminotransferase (ALT/SGPT) 16 U/L (14-59) Alkaline Phosphatase 80 U/L (46-116) Total Protein 5.8 g/dL (6.4-8.2) Albumin 1.9 g/dL (3.4-5.0) Albumin/Globulin Ratio 0.5 (1.0-1.7) Glucose (Fingerstick) 178 mg/dL (70-99) Micro MIXED AEROBIC SOPHIA on 06/07/20 at 1324 INCLUDING: MODERATE [ESCHERICHIA COLI] MODERATE [BETA STREP GROUP B] MODERATE [ENTEROCOCCUS FAECALIS] ESCHERICHIA COLI ENTEROCOCCUS FAECALIS BETA STREP GROUP B Objective: Assessment: 1. Cellulitis/abscess Lt vulvar area, Cellulitis over the left thigh and groin area, some on the right. Swab cults positive for e coli, enterococcus fecalis and grp b strep Status post I&D 2. Pancytopenia, leukopenia hematology following 3. History of MACDONALD, status post TIPS. 4. History of varices and encephalopathy. 5. Lactic acidosis, resolved. 6. Diabetes. 7. History of bipolar disorder. Plan: Plan of Care DC Zosyn Start cefdinir and fluconazole Okay to discharge home from ID standpoint, prescription in chart Local wound care as per general surgery Discussed with nursing staff ZOILA EUCEDA MD Jun 11, 2020 08:34
[2020-06-11] MEDS: LACTULOSE 20 GM/30 ML SOLUTION. PO SCH ×2 (09:20→13:26)
[2020-06-11] MEDS: PSYLLIUM HUSK (SUGAR FREE) 1 PKT PACKET PO SCH (09:20)
[2020-06-11] MEDS: POLYETHYLENE GLYCOL 3350 17 GM PACKET. PO SCH ×2 (09:20→13:26)
[2020-06-11] MEDS: OMEGA-3 FATTY ACIDS/FISH OIL 1,000 MG CAPSULE. PO SCH (09:21)
[2020-06-11] MEDS: LACTOBACILLUS RHAMNOSUS GG 1 CAPSULE. PO SCH (09:21)
[2020-06-11] MEDS: rifAXIMin 550 MG TABLET PO SCH (09:21)
[2020-06-11] MEDS: LINEZOLID 600 MG TABLET PO SCH (09:21)
[2020-06-11] MEDS: oxyCODONE/APAP 5/325 1 TAB TABLET PO PRN ×2 (09:22→13:09)
[2020-06-11] MEDS: INSULIN LISPRO 300 UNITS/3 ML VIAL. SQ SCH ×2 (09:28→13:10)
[2020-06-11] MEDS: IV NORMAL SALINE 1000ML BAG 1,000 ML IV SCH (09:42)
--- NOTE | 2020-06-11 10:16 | PDOC ---
Date of Service: DATE: 06/11/20 TIME: 10:15 Subjective: Subjective: Eating better today, no abd pain, had a black stool. Objective: Vital Signs: Vital Signs Date Time Temp Pulse Resp B/P (MAP) Pulse Ox O2 Delivery O2 Flow Rate FiO2 06/11/20 07:15 98.3 84 16 152/62 (92) 91 Room Air 98.3 06/11/20 06:32 2.0 Labs: Laboratory Tests Test 06/10/20 12:06 06/10/20 17:10 06/10/20 20:33 06/10/20 23:43 Glucose (Fingerstick) 209 mg/dL 258 mg/dL 344 mg/dL 284 mg/dL Test 06/11/20 04:00 06/11/20 07:55 White Blood Count 2.2 x10^3/uL Red Blood Count 3.89 x10^6/uL Hemoglobin 9.1 g/dL Hematocrit 28.9 % Mean Corpuscular Volume 74 fL Mean Corpuscular Hemoglobin 24 pg Mean Corpuscular Hemoglobin Concent 32 g/dL Red Cell Distribution Width 19.5 % Platelet Count 33 x10^3/uL Neutrophils (%) (Auto) 61 % Lymphocytes (%) (Auto) 25 % Monocytes (%) (Auto) 8 % Eosinophils (%) (Auto) 7 % Basophils (%) (Auto) 1 % Neutrophils # (Auto) 1.3 x10^3/uL Lymphocytes # (Auto) 0.5 x10^3/uL Monocytes # (Auto) 0.2 x10^3/uL Eosinophils # (Auto) 0.1 x10^3/uL Basophils # (Auto) 0.0 x10^3/uL Sodium Level 139 mmol/L Potassium Level 3.9 mmol/L Chloride Level 107 mmol/L Carbon Dioxide Level 28 mmol/L Anion Gap 4 Blood Urea Nitrogen 8 mg/dL Creatinine 1.1 mg/dL Estimated GFR (Cockcroft-Gault) 50.7 BUN/Creatinine Ratio 7 Glucose Level 222 mg/dL Calcium Level 7.8 mg/dL Total Bilirubin 1.2 mg/dL Aspartate Amino Transf (AST/SGOT) 35 U/L Alanine Aminotransferase (ALT/SGPT) 16 U/L Alkaline Phosphatase 80 U/L Total Protein 5.8 g/dL Albumin 1.9 g/dL Albumin/Globulin Ratio 0.5 Glucose (Fingerstick) 178 mg/dL PE: GEN: NAD - 80% of breakfast consumed LUNGS: CTAB HEART: RRR ABD: S/ND/NT NEURO/PSYCH: A & O 3 A/P: S/p I&D perineal abscess MACDONALD cirrhosis s/p TIPS (occluded per pt), h/o varices and encephalopathy Pancytopenia, BELTRAN - chronic H/o DU - on PPI ?melena - stable Hgb, normal BUN -- Continue same per GI - monitor stools and labs. Justicifation of Admission Dx: Justifications for Admission: Justification of Admission Dx: Yes Cellulitis: Cellulitis BOBBY MURILLO Jun 11, 2020 10:16
--- NOTE | 2020-06-11 10:24 | NUR ---
[facility] following. Discussed with RN, PT recommending home. LISET jyotsnanadya with discharge home on cefdinir and fluconazole. RN advised no SW needs, anticipate possible discharge home today with self care. Addendum: 06/11/20 at 1531 by FRANK DASH Pt needing home health for wound care. Te Man RN meeting with pt to discuss. [facility]Y will continue to follow. Addendum: 06/11/20 at 1544 by FRANK DASH [facility] RN notified.
[2020-06-11] MEDS ORDERED: FLUCONAZOLE 100 MG TABLET. PO SCH (11:00)
[2020-06-11 11:15] VITALS: BP 148/53
[2020-06-11] MEDS ORDERED: CEFDINIR 300 MG CAPSULE PO SCH (12:00)
[2020-06-11] MEDS ORDERED: CEFD300C PO (13:49)
[2020-06-11] MEDS ORDERED: FLUC100T4 PO (13:49)
[2020-06-11] MEDS ORDERED: OXYC1TAB15 PO (13:49)
--- NOTE | 2020-06-11 13:54 | SNU/HH DC ---
DISCHARGE WITH HOME HEALTH DISCHARGE INFORMATION: Discharge Date: Jun 11, 2020 Final Diagnosis: Problems Medical Problems: (1) Cellulitis, perineum Status: Acute (2) MACDONALD (nonalcoholic steatohepatitis) Status: Acute Condition on Discharge: Stable CODE STATUS: Code Status: Full HOME HEALTH: Face to Face: I certify this patient is under my care and that I, or a nurse practitioner or physician's pediatric assistant working with me, had a face to face encounter that meets the physician face to face encounter requirements with this patient on 06/11/2020. Medical Complications: Other (Perineal wound with abscess. 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 For Eval/Treatment: Yes Physical Therapy For: Evalulation/Treatment Occupational Therapy For: Evaluation/Treatment Home Health Aide For: Self-care Pt Meets Homebound Status: Extreme weakness w/ amb., Limited distance walking POST DISCHARGE ORDERS: Activity Instructions for Disc: Activity as tolerated Weight Bearing Status after Di: As tolerated DIET AFTER DISCHARGE: Regular Wound/Incision Care: Ice to area for comfort, Change dressing, Reinforce dressing PRN CHECKS AFTER DISCHARGE: Checks after discharge: Check blood press - daily, Check your Temp as needed, Weigh Yourself Daily FOLLOW-UP: Follow up with: Wound Care at [facility] 06/16/2020 Additional Instructions: ecommendations to repack with 1/2 inch Iodoform packing, cover with absorbant pad, and mesh panty to keep dressing in place; and change daily TREATMENT/EQUIPMENT ORDERS: Adaptive Equipment Issued: None CERTIFICATION STATEMENT: Certification Statement: Certification Statement: Based on the above finding, I certify that this patient is confined to the home and needs intermittent care home care, physical therapy and/or speech therapy, or continues to need occupational therapy.~ This patient is under my care, and I have initiated the establishment of the plan of care.~ This patient will be followed by myself or a community physician who will periodically review the plan of care. Home Meds Active Scripts Fluconazole (FLUCONAZOLE) 100 Mg Tablet, 1 TAB PO DAILY for Candidiasis for 5 Days, #5 TAB Prov:MERARI CARDOSO MD 06/11/20 Oxycodone/Apap 5-325 (PERCOCET 5-325 MG TABLET ) 1 Each Tablet, 1-2 TAB PO PRN Q6HRS PRN for MODERATE PAIN for 6 Days, #36 TAB Prov:MERARI CARDOSO MD 06/11/20 Cefdinir (CEFDINIR) 300 Mg Capsule, 300 MG PO BID for Abscess for 7 Days, #14 CAP Prov:MERARI CARDOSO MD 06/11/20 Reported Medications Trazodone Hcl (TRAZODONE HCL) 50 Mg Tablet, 50 MG PO DAILY for depression, TAB 06/06/20 Dobbins-3 Fatty Acids/Fish Oil (FISH OIL 1,000 MG SOFTGEL) 1 Each Capsule, 1 CAP PO DAILY for health for 30 Days, #30 CAP 0 Refills 06/06/20 Liraglutide (VICTOZA 3-DARWIN) 0.6 Mg/0.1 Ml Pen.injctr, 1.2 MG SQ DAILY for diab etes, #9 ML 3 Refills 06/06/20 Bupropion Hcl (BUPROPION HCL SR) 100 Mg Tablet.er, 100 MG PO DAILY for depre ssion, TAB.SR 06/06/20 Rifaximin (XIFAXAN) 550 Mg Tablet, 1 TAB PO BID for liver for 10 Days, #20 TAB 0 Refills 06/06/20 Topiramate (TOPIRAMATE) 100 Mg Tablet, 100 MG PO DAILY for depression, TAB 06/06/20 Pantoprazole Sodium (PANTOPRAZOLE SODIUM ) 40 Mg Tablet.dr, 40 MG PO BIDAC for GERD, TAB 06/06/20 Midodrine Hcl (MIDODRINE HCL) 10 Mg Tablet, 10 MG PO TID for hypotension, TAB 06/06/20 Polyethylene Glycol 3350 (GLYCOLAX) 119 Gm Powder, 17 GM PO TID for constipation, #527 GM 0 Refills Take according to instructions on printed sheet 06/06/20 Lactulose (LACTULOSE) 20 Gm/30 Ml Solution, 20 GM PO TID for increased amonia, MISC 06/06/20 Levothyroxine Sodium (LEVOTHYROXINE SODIUM) Unknown Strength Tablet, 0.5 PO DAILY for hypothyroid, #30 TAB 5 Refills 12/10/19 Metformin Hcl (METFORMIN HCL) Unknown Strength Tablet, 500 PO BIDWMEALS for ANTI-DIABETIC, TAB 0 Refills 12/10/19 MERARI CARDOSO MD Jun 11, 2020 13:54
--- NOTE | 2020-06-11 13:56 | PDOC3 ---
Discharge Summary Visit Information Date of Admission: Jun 05, 2020 Date of Discharge: Jun 11, 2020 Admitting Diagnosis: Abscess of left perineum Final Diagnosis Problems Medical Problems: (1) Cellulitis, perineum Status: Acute (2) MACDONALD (nonalcoholic steatohepatitis) Status: Acute Brief Hospital Course Allergies Allergies Coded Allergies Type Severity Reaction Last Updated Verified lorazepam Allergy Severe Rash 12/09/19 Yes risperidone Allergy Severe 06/07/20 Yes ziprasidone Allergy Severe 06/07/20 Yes chlorpromazine Allergy Intermediate 06/07/20 Yes morphine Allergy Intermediate 06/07/20 Yes Vital Signs Vital Signs Date Time Temp Pulse Resp B/P (MAP) Pulse Ox O2 Delivery O2 Flow Rate FiO2 06/11/20 13:09 Room Air 06/11/20 13:00 79 148/53 06/11/20 11:15 97.9 16 91 97.9 06/11/20 06:32 2.0 Lab Results Laboratory Tests Test 06/09/20 16:56 06/09/20 20:43 06/10/20 08:31 06/10/20 12:06 Glucose (Fingerstick) 239 mg/dL (70-99) 243 mg/dL (70-99) 193 mg/dL (70-99) 209 mg/dL (70-99) Test 06/10/20 17:10 06/10/20 20:33 06/10/20 23:43 06/11/20 04:00 Glucose (Fingerstick) 258 mg/dL (70-99) 344 mg/dL (70-99) 284 mg/dL (70-99) White Blood Count 2.2 x10^3/uL (4.0-11.0) Red Blood Count 3.89 x10^6/uL (3.50-5.40) Hemoglobin 9.1 g/dL (12.0-15.5) Hematocrit 28.9 % (36.0-47.0) Mean Corpuscular Volume 74 fL (79-100) Mean Corpuscular Hemoglobin 24 pg (25-35) Mean Corpuscular Hemoglobin Concent 32 g/dL (31-37) Red Cell Distribution Width 19.5 % (11.5-14.5) Platelet Count 33 x10^3/uL (140-400) Neutrophils (%) (Auto) 61 % (31-73) Lymphocytes (%) (Auto) 25 % (24-48) Monocytes (%) (Auto) 8 % (0-9) Eosinophils (%) (Auto) 7 % (0-3) Basophils (%) (Auto) 1 % (0-3) Neutrophils # (Auto) 1.3 x10^3/uL (1.8-7.7) Lymphocytes # (Auto) 0.5 x10^3/uL (1.0-4.8) Monocytes # (Auto) 0.2 x10^3/uL (0.0-1.1) Eosinophils # (Auto) 0.1 x10^3/uL (0.0-0.7) Basophils # (Auto) 0.0 x10^3/uL (0.0-0.2) Sodium Level 139 mmol/L (136-145) Potassium Level 3.9 mmol/L (3.5-5.1) Chloride Level 107 mmol/L (98-107) Carbon Dioxide Level 28 mmol/L (21-32) Anion Gap 4 (6-14) Blood Urea Nitrogen 8 mg/dL (7-20) Creatinine 1.1 mg/dL (0.6-1.0) Estimated GFR (Cockcroft-Gault) 50.7 BUN/Creatinine Ratio 7 (6-20) Glucose Level 222 mg/dL (70-99) Calcium Level 7.8 mg/dL (8.5-10.1) Total Bilirubin 1.2 mg/dL (0.2-1.0) Aspartate Amino Transf (AST/SGOT) 35 U/L (15-37) Alanine Aminotransferase (ALT/SGPT) 16 U/L (14-59) Alkaline Phosphatase 80 U/L (46-116) Total Protein 5.8 g/dL (6.4-8.2) Albumin 1.9 g/dL (3.4-5.0) Albumin/Globulin Ratio 0.5 (1.0-1.7) Test 06/11/20 07:55 06/11/20 11:56 Glucose (Fingerstick) 178 mg/dL (70-99) 244 mg/dL (70-99) Laboratory Tests Test 06/10/20 17:10 06/10/20 20:33 06/10/20 23:43 06/11/20 04:00 Glucose (Fingerstick) 258 mg/dL (70-99) 344 mg/dL (70-99) 284 mg/dL (70-99) White Blood Count 2.2 x10^3/uL (4.0-11.0) Red Blood Count 3.89 x10^6/uL (3.50-5.40) Hemoglobin 9.1 g/dL (12.0-15.5) Hematocrit 28.9 % (36.0-47.0) Mean Corpuscular Volume 74 fL (79-100) Mean Corpuscular Hemoglobin 24 pg (25-35) Mean Corpuscular Hemoglobin Concent 32 g/dL (31-37) Red Cell Distribution Width 19.5 % (11.5-14.5) Platelet Count 33 x10^3/uL (140-400) Neutrophils (%) (Auto) 61 % (31-73) Lymphocytes (%) (Auto) 25 % (24-48) Monocytes (%) (Auto) 8 % (0-9) Eosinophils (%) (Auto) 7 % (0-3) Basophils (%) (Auto) 1 % (0-3) Neutrophils # (Auto) 1.3 x10^3/uL (1.8-7.7) Lymphocytes # (Auto) 0.5 x10^3/uL (1.0-4.8) Monocytes # (Auto) 0.2 x10^3/uL (0.0-1.1) Eosinophils # (Auto) 0.1 x10^3/uL (0.0-0.7) Basophils # (Auto) 0.0 x10^3/uL (0.0-0.2) Sodium Level 139 mmol/L (136-145) Potassium Level 3.9 mmol/L (3.5-5.1) Chloride Level 107 mmol/L (98-107) Carbon Dioxide Level 28 mmol/L (21-32) Anion Gap 4 (6-14) Blood Urea Nitrogen 8 mg/dL (7-20) Creatinine 1.1 mg/dL (0.6-1.0) Estimated GFR (Cockcroft-Gault) 50.7 BUN/Creatinine Ratio 7 (6-20) Glucose Level 222 mg/dL (70-99) Calcium Level 7.8 mg/dL (8.5-10.1) Total Bilirubin 1.2 mg/dL (0.2-1.0) Aspartate Amino Transf (AST/SGOT) 35 U/L (15-37) Alanine Aminotransferase (ALT/SGPT) 16 U/L (14-59) Alkaline Phosphatase 80 U/L (46-116) Total Protein 5.8 g/dL (6.4-8.2) Albumin 1.9 g/dL (3.4-5.0) Albumin/Globulin Ratio 0.5 (1.0-1.7) Test 06/11/20 07:55 06/11/20 11:56 Glucose (Fingerstick) 178 mg/dL (70-99) 244 mg/dL (70-99) Brief Hospital Course Ms Ashraf is a 59-year-old female with a history of diabetes, MACDONALD with cirrhosis s/p TIPS, bipolar disease, hypothyroidism, anemia, thrombocytopenia, and morbid obesity admitted with rash, neutropenia who presents with a chief complaint of groin discomfort. Patient states over the past 5 days she has had redness and swelling to her vulvar region. She stated 5 days ago she was seen in urgent care and prescribed nystatin powder and doxycycline for an infection, but did not seem to improve. No vaginal discharge or bleeding and denies any pain with bowel movement. She does note some burning sensation when she urinates. Noted with pancytopenia WBC 1.5, platelets 32, Hb 9.4 albumin 2, glucose 281. Admitted for failure of outpatient antibiotic therapy for groin cellulitis on vancomycin and Zosyn. 06/07: Afebrile. No BM last day despite her lactulose dosing.Pain is controlled with IV morphine. She does not feel her groin is improving. 06/08: Afebrile. Some more drainage from left perineal area, had surgical evaluation, I&D with cultures. 06/09: Afebrile. Labs stable. e coli, enterococcus fecalis and grp b strep on culture 06/10: Afebrile. She is feeling slightly better today. Wounds are seen less red and angry. No shortness of breath or chest pain. Afebrile. Labs stable, E. coli sensitivities returned resistant to Augmentin and ampicillin, sensitive to zosyn. Changed to fluconazole and cefdinir per ID. Feels much better. Postop pain is under control and she is seen ambulating in the hallway Denies fever, nausea, vomiting, shortness of breath, diarrhea, abdominal pain, rash, but does note a dark stool, worried about her h/o varices. Reassured her Hb is stable. Consults: GI, ID, General surgery, LOOM BLOWER Cellulitis of groin and labia -ID consulted, cefdinir and antifungal Abscess of left perineal region Sepsis - due to cellulitis of groin failing outpatient therapy Severe protein calorie malnutrition -likely secondary to cirrhosis, will consult dietitian Pancytopenia - noted previously, her anemia and thrombocytopenia can be explained with her cirrhosis, her leukopenia however is not clear in its etiology. Diabetes -will place on insulin therapy while inpatient. Hold metformin. MACDONALD -with cirrhosis status post TIPS, apparently TIPS is occluded Bipolar disease -we will consult psychiatry for medication recommendations. Hypothyroidism -continue levothyroxine Morbid obesity -counseled on weight loss techniques Greater than 30 minutes spent on d/c home with home health and outpatient wound care clinic f/u on 06/16/2020 Discharge Information Condition at Discharge: Improved Follow Up: Weeks (1) Disposition/Orders: D/C to Home w/ HH Scheduled Bupropion Hcl (Bupropion Hcl Sr) 100 Mg Tablet.er, 100 MG PO DAILY for de pression, (Reported) Entered as Reported by: NICK RESTREPO on 06/06/20 1134 Last Action: HELD on 06/06/201318 by RAJ VILLARREAL MD Cefdinir (Cefdinir) 300 Mg Capsule, 300 MG PO BID for Abscess for 7 Days, #14 Prescribed by: MERARI CARDOSO MD on 06/11/20 1349 Fluconazole (Fluconazole) 100 Mg Tablet, 1 TAB PO DAILY for Candidiasis for 5 Days, #5 Prescribed by: MERARI CARDOSO MD on 06/11/20 1349 Lactulose (Lactulose) 20 Gm/30 Ml Solution, 20 GM PO TID for increased amonia, (Reported) Entered as Reported by: NICK RESTREPO on 06/06/20 1127 Last Action: Continued on 06/06/201318 by RAJ VILLARREAL MD Levothyroxine Sodium (Levothyroxine Sodium) Unknown Strength Tablet, 0.5 PO DAILY for hypothyroid, #30 Ref 5 (Reported) Entered as Reported by: Garo Tavarez on 12/10/19228 Last Action: Converted on 06/06/201318 by RAJ VILLARREAL MD Liraglutide (Victoza 3-Perez) 0.6 Mg/0.1 Ml Pen.injctr, 1.2 MG SQ DAILY for diabetes, #9 Ref 3 (Reported) Entered as Reported by: NICK RESTREPO on 06/06/201133 Last Action: HELD on 06/06/201318 by RAJ VILLARREAL MD Metformin Hcl (Metformin Hcl) Unknown Strength Tablet, 500 PO BIDWMEALS for ANTI-DIABETIC, Ref 0 (Reported) Entered as Reported by: Garo Tavarez on 12/10/19228 Last Action: HELD on 06/06/201318 by RAJ VILLARREAL MD Midodrine Hcl (Midodrine Hcl) 10 Mg Tablet, 10 MG PO TID for hypotension, (Reported) Entered as Reported by: NICK RESTREPO on 06/06/201128 Last Action: Converted on 06/06/201318 by RAJ VILLARREAL MD Foley-3 Fatty Acids/Fish Oil (Fish Oil 1,000 Mg Softgel) 1 Each Capsule, 1 CAP PO DAILY for health for 30 Days, #30 Ref 0 (Reported) Entered as Reported by: NICK RESTREPO on 06/06/201134 Last Action: Continued on 06/06/201318 by RAJ VILLARREAL MD Pantoprazole Sodium (Pantoprazole Sodium ) 40 Mg Tablet.dr, 40 MG PO BIDAC for GERD, (Reported) Entered as Reported by: NICK RESTREPO on 06/06/201128 Last Action: Continued on 06/06/201318 by RAJ VILLARREAL MD Polyethylene Glycol 3350 (Glycolax) 119 Gm Powder, 17 GM PO TID for constipation, #527 Ref 0 (Reported) Take according to instructions on printed sheet Entered as Reported by: NICK RESTREPO on 06/06/201127 Last Action: Continued on 06/06/201318 by RAJ VILLARREAL MD Rifaximin (Xifaxan) 550 Mg Tablet, 1 TAB PO BID for liver for 10 Days, #20 Ref 0 (Reported) Entered as Reported by: NICK RESTREPO on 06/06/201133 Last Action: Continued on 06/06/201318 by RAJ VILLARREAL MD Topiramate (Topiramate) 100 Mg Tablet, 100 MG PO DAILY for depression, (Reported) Entered as Reported by: NICK RESTREPO on 06/06/201129 Last Action: HELD on 06/06/201318 by RAJ VILLARREAL MD Trazodone Hcl (Trazodone Hcl) 50 Mg Tablet, 50 MG PO DAILY for depression, (Reported) Entered as Reported by: NICK RESTREPO on 06/06/201135 Last Action: HELD on 06/06/201318 by RAJ VILLARREAL MD Scheduled PRN Oxycodone/Apap 5-325 (Percocet 5-325 Mg Tablet ) 1 Each Tablet, 1-2 TAB PO PRN Q6HRS PRN for MODERATE PAIN for 6 Days, #36 Prescribed by: MERARI CARDOSO MD on 06/11/20 1350 Justicifation of Admission Dx: Justifications for Admission: Justification of Admission Dx: Yes Cellulitis: Cellulitis MERARI CARDOSO MD Jun 11, 2020 13:56
[2020-06-11] MEDS ORDERED: ONDA4TAB12 PO (13:57)
[2020-06-11] MEDS ORDERED: ONDANSETRON ODT 4 MG TAB.RAPDIS. PO PRN (14:00)
--- NOTE | 2020-06-11 14:31 | NUR ---
WOUND CARE; Discussed wound dressings with patient, she states that her would not be a good candidate to change her dressings and she would prefer home health services. Notified Clementina KAUR. Appointment for wound follow up in clinic scheduled for 06/17/2020 at 1300. Wound care orders entered into discharge paperwork.
[2020-06-11 15:00] VITALS: BP 188/79
--- NOTE | 2020-06-11 17:21 | NUR ---
patient discharged home with spouse. follow up and meds reviewed. pt stable upon dc. IV had been dc'd earlier in shift. pt provided with seat cushion
[2020-06-12] MEDS ORDERED: ASCORBIC ACID 500 MG TABLET PO SCH (09:00)
[2020-06-12] MEDS ORDERED: MULTIVITAMIN with MINERAL TABLET. PO SCH (09:00)
[2020-06-12] MEDS ORDERED: FURO20TA3 PO (09:10)
[2020-06-12] MEDS ORDERED: POTA20TA4 PO (09:10)
== END 2020-06-11 17:32 | disposition home health service (06) | DRG 853 ==
LOC: ER 17:43 → 3 NORTH 21:11 → 5 NORTH 06-06 18:43
PROVIDERS: ADMIT Family Medicine; ATTEND Family Medicine
PROC: 0J9B0ZZ Drainage of Perineum Subcutaneous Tissue and Fascia, Open Approach (ICD-10-PCS; principal; 2020-06-08 11:30)
DX: A41.9 Sepsis, unspecified organism (principal); E43 Unspecified severe protein-calorie malnutrition; L03.315 Cellulitis of perineum; D61.818 Other pancytopenia; G93.40 Encephalopathy, unspecified; I85.10 Secondary esophageal varices without bleeding; L02.31 Cutaneous abscess of buttock; L03.115 Cellulitis of right lower limb; L03.116 Cellulitis of left lower limb; N39.0 Urinary tract infection, site not specified; L02.214 Cutaneous abscess of groin; L02.215 Cutaneous abscess of perineum; L03.314 Cellulitis of groin; Z68.41 Body mass index [BMI] 40.0-44.9, adult; E03.9 Hypothyroidism, unspecified; E11.51 Type 2 diabetes mellitus with diabetic peripheral angiopathy without gangrene; E66.01 Morbid (severe) obesity due to excess calories; E78.5 Hyperlipidemia, unspecified; F31.9 Bipolar disorder, unspecified; F41.1 Generalized anxiety disorder; G51.0 Bell's palsy; I10 Essential (primary) hypertension; I86.4 Gastric varices; K74.60 Unspecified cirrhosis of liver; K75.81 Nonalcoholic steatohepatitis (NASH); N20.0 Calculus of kidney; N76.2 Acute vulvitis; Z81.8 Family history of other mental and behavioral disorders; Z82.49 Family history of ischemic heart disease and other diseases of the circulatory system; Z87.11 Personal history of peptic ulcer disease; Z87.442 Personal history of urinary calculi; Z91.5 Personal history of self-harm; G89.29 Other chronic pain; Z20.828 Contact with and (suspected) exposure to other viral communicable diseases; Z88.8 Allergy status to other drugs, medicaments and biological substances; B96.20 Unspecified Escherichia coli [E. coli] as the cause of diseases classified elsewhere; B95.2 Enterococcus as the cause of diseases classified elsewhere; B95.1 Streptococcus, group B, as the cause of diseases classified elsewhere
CPT/HCPCS: 36415; 71045; 74177; 80048; 80053; 80202; 81001; 82565; 82607; 82728; 82962; 83010; 83520; 83540; 83550; 83605; 83615; 83690; 84165; 84550; 85007; 85025; 85045; 85610; 87040; 87070; 87071; 87075; 87077; 87106; 87186; 87426; 96365; 96367; 96375; 99285; A7015; J1100; J1170; J1815; J2248; J2270; J2405; J2543; J2704; J3010; J3370; J7030; J7040; J7060; J7120; Q9967; 97530-GO; 97530-GP; 97535-GO; A4461; G0378; U0003-CS

== ENCOUNTER 2021-02-06 12:18 | Emergency (ER) | payer MEDICARE, OTHER ==
[~2021-02-06] VITALS: Ht 172.7 cm; Wt 113.6 kg
[~2021-02-06 12:18] MED LIST changes: +BUPR100T8 PO; +CEFD300C PO; +FLUC100T4 PO; +FURO20TA3 PO; +LACT20SO PO; +LIRA0.6P2 SQ; +MIDO10TA PO; +OMEG1CAP50 PO; +ONDA4TAB12 PO; +OXYC1TAB15 PO; +PANT40TA77 PO; +POLY119P19 PO; +POTA20TA4 PO; +RIFA550T4 PO; +TOPI100T8 PO; +TRAZ-118 PO
[2021-02-06] MEDS ORDERED: IV NORMAL SALINE 1000ML BAG 1,000 ML IV ONE (13:15)
[2021-02-06] MEDS ORDERED: DEXAMETHASONE SOD PHOS 20 MG/5 ML VIAL. IV ONE (13:15)
[2021-02-06] MEDS ORDERED: KETOROLAC 15 MG/ML VIAL. IVP ONE (13:15)
[2021-02-06] MEDS ORDERED: PROCHLORPERAZINE 10 MG/2 ML VIAL. IV ONE (13:15)
[2021-02-06] MEDS ORDERED: diphenhydrAMINE 50 MG/ML VIAL IVP ONE (13:15)
--- NOTE | 2021-02-06 13:15 | ED.ADGEN ---
Past Medical History Past Medical History: Bipolar, Diabetes-Type II, Hypothyroid, Other Additional Past Medical Histor: MACDONALD; Chronic Anemia Past Surgical History: No Surgical History Additional Past Surgical Histo: TIPS Smoking Status: Never Smoker Alcohol Use: None General Adult EDM: Chief Complaint: HEADACHE HPI: HPI: Patient is a 60 year old female presenting with 2 days of frontal throbbing migraine. Patient states this is the same as her previous migraines but is not responding to her medications. Took her topiramate yesterday without improvement. Did not take anything today. Says she has some photophobia and nausea but no vomiting. No vision changes. Has been to the ER one other time for migraine. Review of Systems: Review of Systems: All other systems within normal limits except for as noted in the HPI Allergies: Allergies: Allergies Coded Allergies Type Severity Reaction Last Updated Verified lorazepam Allergy Severe Rash 12/09/19 Yes risperidone Allergy Severe 06/07/20 Yes ziprasidone Allergy Severe 06/07/20 Yes chlorpromazine Allergy Intermediate 06/07/20 Yes morphine Allergy Intermediate 06/07/20 Yes Physical Exam: PE: Constitutional: Well developed, well nourished, no acute distress, non-toxic appearance. [] HENT: Normocephalic, atraumatic, bilateral external ears normal, nose normal. [] Eyes: PERRLA, conjunctiva normal, no discharge. [] Neck: No rigidity, supple, no stridor. [] Cardiovascular: Regular rate and rhythm, brisk cap refill [] Lungs & Thorax: Non labored symmetric respirations, no tachypnea or respiratory distress [] Abdomen: Soft, nondistended. Skin: Warm, dry, no erythema, no rash. [] Back: Unremarkable Extremities: No deformities, range of motion grossly intact, no lower extremity edema [] Neurologic: Alert and oriented X 3, no focal deficits noted. [] Psychologic: Affect normal, judgement normal, mood normal. [] Current Patient Data: Vital Signs: Vital Signs Date Time Temp Pulse Resp B/P (MAP) Pulse Ox O2 Delivery O2 Flow Rate FiO2 02/06/21 12:40 98.7 97 18 167/77 (107) 98 Room Air 98.7 EKG: EKG: [] Heart Score: C/O Chest Pain: No Risk Factors: Risk Factors: DM, Current or recent (<one month) smoker, HTN, HLP, family history of CAD, obesity. Risk Scores: Score 0 - 3: 2.5% MACE over next 6 weeks - Discharge Home Score 4 - 6: 20.3% MACE over next 6 weeks - Admit for Clinical Observation Score 7 - 10: 72.7% MACE over next 6 weeks - Early Invasive Strategies Radiology/Procedures: Radiology/Procedures: [] Course & Med Decision Making: Course & Med Decision Making Since headache is same as patient's frequent migraines that happen 2-3 times a month discussed the option of work-up or treatment. Patient states she feels comfortable just treating the symptoms and will follow up with her neurologist. Marlene Disclaimer: Marlene Disclaimer: This electronic medical record was generated, in whole or in part, using a voice recognition dictation system. Departure Departure Impression: Primary Impression: Migraine Disposition: 01 HOME / SELF CARE / HOMELESS Condition: STABLE Referrals: NON,STAFF (PCP) Patient Instructions: Recurrent Migraine Headache HANK RYAN MD February 06, 2021 13:15
[2021-02-06 14:44] VITALS: BP 162/72
== END 2021-02-06 14:45 | disposition home or self-care (01) ==
LOC: ER 12:18
DX: G43.909 Migraine, unspecified, not intractable, without status migrainosus (principal); F31.9 Bipolar disorder, unspecified; E11.9 Type 2 diabetes mellitus without complications; E03.9 Hypothyroidism, unspecified; Z88.5 Allergy status to narcotic agent; Z88.8 Allergy status to other drugs, medicaments and biological substances
CPT/HCPCS: 96361; 96374; 96375; 99285; J0780; J1100; J1200; J1885; J7030

== ENCOUNTER 2021-06-11 19:38 | Inpatient (IN) | payer MEDICARE, OTHER ==
[~2021-06-11] VITALS: Ht 172.7 cm; Wt 118.4 kg
[2021-06-11] MEDS ORDERED: IBUPROFEN 400 MG TABLET. PO ONE (20:45)
--- NOTE | 2021-06-11 20:54 | PHYS DOC ---
Past Medical History Past Medical History: Bipolar, Diabetes-Type II, Hypothyroid, Other Additional Past Medical Histor: MACDONALD; Chronic Anemia (EMILIA BRINK) Past Surgical History: No Surgical History Additional Past Surgical Histo: TIPS (EMILIA BRINK) Smoking Status: Never Smoker Alcohol Use: None (EMILIA BRINK) General Adult EDM: Chief Complaint: WOUND CHECK Problems: (1) Wound cellulitis (EMILIA BRINK) HPI: HPI: Patient is a 61 year old diabetic female who presents with a weeping wound to the posterior lateral aspect of her right knee. Patient states she noticed a small, round red area approximately 1-1/2 inches across 1 week ago. Patient states that the area has become more painful, larger, warm to the touch and more red over time. She reports that today it started oozing and bleeding. She rates her pain as 8/10, with no exacerbating or remitting factors. She denies having touched or manipulated the wound at all since onset. Patient reports a fever of 100 F. She has taken Tylenol with her last dose today at approximately 16:30. Patient states her blood sugars at home are normally between 052035. Patient denies other rashes, chills, headache, vision changes, N/V/D, abdominal pain, dysuria, hematuria. (EMILIA BRINK) Review of Systems: Review of Systems: Constitutional: See HPI HEENT: See HPI Respiratory: Denies cough or shortness of breath Cardiovascular: Denies chest pain or edema GI: See HPI : See HPI Musculoskeletal: See HPI Integument: See HPI Neurologic: Denies headache, focal weakness or sensory changes. [] (EMILIA BRINK) Heart Score: C/O Chest Pain: N/A (EMILIA BRINK) Allergies: Allergies: Allergies Coded Allergies Type Severity Reaction Last Updated Verified lorazepam Allergy Severe Rash 12/09/19 Yes risperidone Allergy Severe 06/07/20 Yes ziprasidone Allergy Severe 06/07/20 Yes chlorpromazine Allergy Intermediate 06/07/20 Yes morphine Allergy Intermediate 06/07/20 Yes (EMILIA BRINK) Physical Exam: PE: Constitutional: Well developed, well nourished, non-toxic appearance. HENT: Normocephalic, atraumatic, bilateral external ears normal, nose normal. Eyes: Conjunctiva normal, no discharge. Cardiovascular:Heart rate regular rhythm, no murmur Lungs & Thorax: Bilateral breath sounds clear to auscultation Abdomen: Bowel sounds normal, soft, no tenderness, no masses, no pulsatile masses. Skin: There is a weeping wound approximately 3 inches in diameter to the posterior lateral aspect of the right knee. There is central oozing of serosanguineous fluid and minimal amount of necrotizing tissue surrounded by erythema. The wound is warm to touch and tender diffusely in the surrounding area. No other lesions or rashes are present. Extremities: Patient's range of motion of the right knee is limited secondary to tenderness and pain. There is no tenderness of the joint itself. Neurovascular intact. (EMILIA BRINK) Current Patient Data: Labs: Laboratory Tests Test 06/11/21 21:35 06/11/21 22:10 White Blood Count 4.3 x10^3/uL (4.0-11.0) Red Blood Count 4.46 x10^6/uL (3.50-5.40) Hemoglobin 13.8 g/dL (12.0-15.5) Hematocrit 41.5 % (36.0-47.0) Mean Corpuscular Volume 93 fL (79-100) Mean Corpuscular Hemoglobin 31 pg (25-35) Mean Corpuscular Hemoglobin Concent 33 g/dL (31-37) Red Cell Distribution Width 15.3 % (11.5-14.5) Platelet Count 62 x10^3/uL (140-400) Neutrophils (%) (Auto) 76 % (31-73) Lymphocytes (%) (Auto) 12 % (24-48) Monocytes (%) (Auto) 8 % (0-9) Eosinophils (%) (Auto) 3 % (0-3) Basophils (%) (Auto) 0 % (0-3) Neutrophils # (Auto) 3.3 x10^3/uL (1.8-7.7) Lymphocytes # (Auto) 0.5 x10^3/uL (1.0-4.8) Monocytes # (Auto) 0.3 x10^3/uL (0.0-1.1) Eosinophils # (Auto) 0.1 x10^3/uL (0.0-0.7) Basophils # (Auto) 0.0 x10^3/uL (0.0-0.2) Sodium Level 125 mmol/L (136-145) Potassium Level 4.7 mmol/L (3.5-5.1) Chloride Level 89 mmol/L (98-107) Carbon Dioxide Level 29 mmol/L (21-32) Anion Gap 7 (6-14) Blood Urea Nitrogen 14 mg/dL (7-20) Creatinine 1.7 mg/dL (0.6-1.0) Estimated GFR (Cockcroft-Gault) 30.6 BUN/Creatinine Ratio 8 (6-20) Glucose Level 920 mg/dL (70-99) Lactic Acid Level 4.9 mmol/L (0.4-2.0) Calcium Level 8.6 mg/dL (8.5-10.1) Total Bilirubin 2.2 mg/dL (0.2-1.0) Aspartate Amino Transf (AST/SGOT) 31 U/L (15-37) Alanine Aminotransferase (ALT/SGPT) 22 U/L (14-59) Alkaline Phosphatase 137 U/L (46-116) Total Protein 6.5 g/dL (6.4-8.2) Albumin 2.3 g/dL (3.4-5.0) Albumin/Globulin Ratio 0.5 (1.0-1.7) Urine Collection Type Unknown Urine Color Yellow Urine Clarity Cloudy Urine pH 7.0 (<5.0-8.0) Urine Specific [place] 1.020 (1.000-1.030) Urine Protein Negative mg/dL (NEG-TRACE) Urine Glucose (UA) >=1000 mg/dL (NEG) Urine Ketones (Stick) Negative mg/dL (NEG) Urine Blood Trace (NEG) Urine Nitrite Negative (NEG) Urine Bilirubin Negative (NEG) Urine Urobilinogen Dipstick 0.2 mg/dL (0.2 mg/dL) Urine Leukocyte Esterase Negative (NEG) Urine RBC Occ /HPF (0-2) Urine WBC Occ /HPF (0-4) Urine Squamous Epithelial Cells Few /LPF Urine Bacteria 0 /HPF (0-FEW) Urine Mucus Slight /LPF Urine Yeast Present /HPF Vital Signs: Vital Signs Date Time Temp Pulse Resp B/P (MAP) Pulse Ox O2 Delivery O2 Flow Rate FiO2 06/11/21 19:47 98.1 104 16 124/74 (107) 96 Room Air 98.1 (EMILIA BRINK) EKG: EKG: [] (EMILIA BRINK) Radiology/Procedures: Radiology/Procedures: [] (EMILIA BRINK) Course & Med Decision Making: Course & Med Decision Making Pertinent Labs and Imaging studies reviewed. (See chart for details) Bedside fingerstick blood glucose was greater than 600. Upon discussion with patient, she has not had any insulin today. Patient states she takes 20 units of NPH insulin in the morning and 20 at night, in addition to Metformin and Victoza. Labs were drawn and fluids were started to better assess the patient's current status. Patient was given her normal NPH dose that she takes at home here in the department. Patient was tachycardic in the department. SIRS criteria not met. Pseudohyponatremia on lab results, when corrected is within normal limits. Due to extreme hyperglycemia and lactic acidosis, patient will be admitted. (EMILIA BRINK) Dragon Disclaimer: Dragon Disclaimer: This electronic medical record was generated, in whole or in part, using a voice recognition dictation system. 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 I was available for consultation as needed during the patient's visit in the emergency department. I agree with the clinical impression, plan, and disposition. (ELIZABETH DE LA TORRE DO) EMILIA BRINK Jun 11, 2021 20:54 ELIZABETH DE LA TORRE DO Jun 11, 2021 22:17
[2021-06-11] MEDS ORDERED: CLIN300C9 PO (20:59)
[2021-06-11] MEDS ORDERED: MUPI22OI2 TP (20:59)
[2021-06-11] MEDS ORDERED: NEOMY/BACITR/POLYMYXIN OINT PACKET. TP ONE (21:30)
[2021-06-11] MEDS ORDERED: CLINDAMYCIN HCL 150 MG CAPSULE. PO ONE (21:30)
[2021-06-11] MEDS ORDERED: IV NORMAL SALINE 1000ML BAG 1,000 ML IV SCH (21:30)
[2021-06-11] MEDS ORDERED: DIPH,PERTUSS(ACELL),TET VAC/PF 0.5 ML SYRINGE. VAX IM ONE (21:30)
[2021-06-11 21:46] LABS: BASO % 0 % (0-3); EOS # 0.1 x10^3/uL (0.0-0.7); EOS % 3 % (0-3); HEMATOCRIT 41.5 % (36.0-47.0); HEMOGLOBIN 13.8 g/dL (12.0-15.5); LYMPH # 0.5 x10^3/uL (1.0-4.8); LYMPH % 12 % (24-48); MEAN CORPUSCULAR HEMOGLOBIN 31 pg (25-35); MEAN CORPUSCULAR HGB CONC 33 g/dL (31-37); MEAN CORPUSCULAR VOLUME 93 fL (79-100); MONO # 0.3 x10^3/uL (0.0-1.1); MONO % 8 % (0-9); NEUT # 3.3 x10^3/uL (1.8-7.7); NEUT % 76 % (31-73); PLATELET COUNT 62 x10^3/uL (140-400); RED BLOOD COUNT 4.46 x10^6/uL (3.50-5.40); RED CELL DISTRIBUTION WIDTH 15.3 % (11.5-14.5); WHITE BLOOD COUNT 4.3 x10^3/uL (4.0-11.0)
[2021-06-11 21:58] LABS: CALCIUM 8.6 mg/dL (8.5-10.1); CREATININE 1.7 mg/dL (0.6-1.0); GFR 30.6; POTASSIUM 4.7 mmol/L (3.5-5.1)
[2021-06-11 22:01] LABS: ALBUMIN 2.3 g/dL (3.4-5.0); ALBUMIN/GLOBULIN RATIO 0.5 (1.0-1.7); TOTAL BILIRUBIN 2.2 mg/dL (0.2-1.0); TOTAL PROTEIN 6.5 g/dL (6.4-8.2)
[2021-06-11] MEDS ORDERED: INSULIN NPH/REG HUM 70/30 300 UNITS/3 ML VIAL. SQ ONE (22:15)
[2021-06-11 22:35] LABS: BILIRUBIN,URINE NEGATIVE (NEG); CLARITY,URINE CLOUDY; COLOR,URINE YELLOW; NITRITE,URINE NEGATIVE (NEG); PROTEIN,URINE NEGATIVE (NEG-TRACE); UROBILINOGEN,URINE 0.2 mg/dL (0.2 mg/dL)
[2021-06-11 22:41] LABS: BACTERIA,URINE 0 /HPF (0-FEW); RBC,URINE OCC /HPF (0-2); WBC,URINE OCC /HPF (0-4); YEAST,URINE PRESENT /HPF
[2021-06-11] MEDS ORDERED: VANCOMYCIN PER PHARMACY MC PRN (22:45)
[2021-06-11] MEDS ORDERED: IV NORMAL SALINE 1000ML BAG 1,000 ML IV ONE (23:00)
[2021-06-11] MEDS ORDERED: VANCOMYCIN 1.75 GM in IV NORMAL SALINE 500ML BAG 500 ML IV ONE (23:00)
[2021-06-11] MEDS ORDERED: DEXTROSE 50% 25 GM / 50ML DISP.SYRIN. IV PRN (23:00)
[2021-06-11] MEDS ORDERED: ACETAMINOPHEN 325 MG TABLET. PO PRN (23:00)
[2021-06-11] MEDS ORDERED: fentaNYL PF VIAL 100 MCG/2 ML VIAL ONE (23:07)
[2021-06-11] MEDS: fentaNYL PF VIAL 100 MCG/2 ML VIAL IVP PRN (23:08)
[2021-06-12 00:05] VITALS: BP 137/47
--- NOTE | 2021-06-12 00:05 | NUR ---
Patient admitted from ER to room 438 per wheelchair. Admitting diagnosis: abscess right leg. Patient states area on right leg started about 1 week ago. Patient does not know if she was bit or stung by a insect. Patient is alert and oriented x4. Patient lives with her and is retired. Patient is allergic to chlorpromazine, lorazepam, risperidone and ziprasidone. Patient is also diabetic and is on NPH insulin. Patient is in no acute distress at this time. Will continue to monitor.
[2021-06-12 03:22] VITALS: BP 120/52
--- NOTE | 2021-06-12 03:43 | NUR ---
Pharmacy Vancomycin Dosing Note S:Consulted to monitor and dose vancomycin started 06/11/21. O:JOO BOYER is a 61 year old F with Cellulitis . Height: 5 feet, 8 inches Weight: 118.8 kg [place] Body Weight: 63.90 Adjusted Body Weight: 85.86 Dosing Weight: Actual Other Antibiotics: clinda x 1 LABS: Last BUN: 14 Last Creatinine: 1.7 Creatinine Clearance: 47 mL/min Last WBC: 4.3 Last Procalcitonin: Tmax (past 24 hours): 98.1 Microbiology: 06/12 bcx pending I/O: Drug Levels: Last level: on at Last dose given 06/11/21 at 2300 Vancomycin Dosing: Loading Dose: x1 Dosing Weight: Actual Target Trough: 10-20 A: Based on: WEIGHT, CRCL~47, P: 1. INITIATE Vancomycin 1750 mg IV q24h 2. Follow up Trough level on 06/13/21 at 2230 3. Pharmacy will continue to monitor, follow and adjust therapy as needed. ADALBERTO GUEVARA [facility], 06/12/21 [id number]
[2021-06-12] MEDS: fentaNYL PF VIAL 100 MCG/2 ML VIAL IVP PRN ×6 (04:04→21:26)
[2021-06-12] MEDS: IV NORMAL SALINE 1000ML BAG 1,000 ML IV SCH ×4 (05:11→21:00)
[2021-06-12] MEDS ORDERED: NPH,100V SQ (05:43)
[2021-06-12 07:00] VITALS: BP 117/43
[2021-06-12] MEDS ORDERED: ONDANSETRON PF 4 MG/2 ML VIAL. IVP PRN (07:30)
[2021-06-12] MEDS: INSULIN LISPRO 300 UNITS/3 ML VIAL. SQ SCH ×5 (07:42→17:58)
[2021-06-12] MEDS ORDERED: ACETAMINOPHEN 325 MG TABLET. PO PRN (07:45)
--- NOTE | 2021-06-12 08:10 | PDOC1 ---
History and Physical Date of Admission Date of Admission DATE: 06/12/21 TIME: 07:22 Identification/Chief Complaint Chief Complaint Leg wound, hyperglycemia Source Source: Patient History of Present Illness History of Present Illness Ms Ashraf is a 61-year-old female with a history of diabetes, MACDONALD with cirrhosis s/p TIPS, bipolar disease, hypothyroidism, anemia, thrombocytopenia, and morbid obesity who presents to ED with a weeping wound to the posterior lateral aspect of her right knee. Patient states she noticed a small, round red area approximately 1- 1/2 inches across 1 week ago. Patient states that the area has become more painful, larger, warm to the touch and more red over time. She reports that today it started oozing and bleeding. She rates her pain as 8/10, with no exacerbating or remitting factors. She denies having touched or manipulated the wound at all since onset. Patient reports a fever of 100 F. She has taken Tylenol with her last dose 06/11/2021 at approximately 16:30. Patient states her blood sugars at home are normally between 120-140. Patient denies other rashes, chills, headache, vision changes, N/V/D, abdominal pain, dysuria, hematuria. WBC 4.3, Hb 13.8, platelets 62, NA 125, K4.7, BUN 14, CR 1.7, glucose 84.9, tahir irubin 2.2, AST 31, ALT 22, alk phos 137, albumin 2.3. Urinalysis with glucosuria otherwise bland. Admitted for further care. Past Medical History GI: GERD, Other (cirrhosis) Hepatobiliary: Other Psych: Bipolar Endocrine: Diabetes, Hypothyroidism Past Surgical History Past Surgical History: Other Family History Family History: High Cholestrol, Hypertension Social History Smoke: No ALCOHOL: none Drugs: None Current Problem List Problem List Problems Medical Problems: (1) Cellular atypia due to antineoplastic agent Status: Acute (2) Cellulitis Status: Acute (3) Diabetes Status: Acute (4) Hyperglycemia Status: Acute (5) Insect bite of right lower extremity Status: Acute (6) Lactic acidosis Status: Acute Current Medications Current Medications Current Medications Ibuprofen (Motrin) 800 mg 1X ONCE PO Last administered on 06/11/21at 21:56; Start 06/11/21 at 20:45; Stop 06/11/21 at 20:46; Status DC Neomycin/ Polymyxin/ Bacitracin (Triple Antibiotic Ointment) 1 pkt 1X ONCE TP Last administered on 06/11/21 21:57; Start 06/11/21 at 21:30; Stop 06/11/21 at 21:31; Status DC Clindamycin HCl (Cleocin) 300 mg 1X ONCE PO Last administered on 06/11/21at 21:57; Start 06/11/21 at 21:30; Stop 06/11/21 at 21:31; Status DC Diphtheria/ Tetanus/Acell Pertussis (ADACEL TDap SYRINGE) 0.5 ml ONCE ONCE VAX IM Last administered on 06/11/21at 21:58; Start 06/11/21 at 21:30; Stop 06/11/21 at 21:31; Status DC Sodium Chloride 1,000 ml @ 100 mls/hr Q10H IV Last administered on 06/11/21at 21:56; Start 06/11/21 at 21:30; Stop 06/12/21 at 07:29 Insulin Human Isoph/Insulin Regular (HumuLIN 70-30 VIAL) 20 units 1X ONCE SQ Last administered on 06/11/21at 22:32; Start 06/11/21 at 22:15; Stop 06/11/21 at 22:16; Status DC Vancomycin HCl (Vanco Per Pharmacy) 1 each PRN DAILY PRN MC SEE COMMENTS Last administered on 06/12/21at 03:43; Start 06/11/21 at 22:45 Vancomycin HCl 1.75 gm/Sodium Chloride 500 ml @ 250 mls/hr 1X ONCE IV Last administered on 06/11/21at 23:13; Start 06/11/21 at 23:00; Stop 06/12/21 at 00:59; Status DC Sodium Chloride 1,000 ml @ 100 mls/hr 1X ONCE IV Last administered on 06/11/21at 23:14; Start 06/11/21 at 23:00; Stop 06/12/21 at 08:59 Fentanyl Citrate (Fentanyl 2ml Vial) 50 mcg PRN Q2HR PRN IVP PAIN Last administered on 06/12/21at 04:04; Start 06/11/21 at 23:00 Sodium Chloride 1,000 ml @ 125 mls/hr Q8H IV Last administered on 06/12/21at 05:11; Start 06/11/21 at 23:00; Stop 06/12/21 at 22:59 Acetaminophen (Tylenol) 650 mg PRN Q4HRS PRN PO FEVER > 100.3'F; Start 06/11/21 at 23:00; Stop 06/12/21 at 22:59 Insulin Human Lispro (HumaLOG) 0-9 UNITS TIDWMEALS SQ ; Start 06/12/21 at 08:00 Dextrose (Dextrose 50%-Water Syringe) 12.5 gm PRN Q15MIN PRN IV SEE COMMENTS; Start 06/11/21 at 23:00 Fentanyl Citrate (Fentanyl 2ml Vial) 100 mcg STK-MED ONCE .ROUTE ; Start 06/11/21 at 23:07; Stop 06/11/21 at 23:07; Status DC Vancomycin HCl 1.75 gm/Sodium Chloride 500 ml @ 250 mls/hr Q24H IV ; Start 06/12/21 at 23:00 Vancomycin HCl (Vancomycin Trough Level) 1 each 1X ONCE MC ; Start 06/13/21 at 22:30; Stop 06/13/21 at 22:31 Active Scripts Active Potassium Chloride (Potassium Chloride) 20 Meq Tablet.er 20 Meq PO BID 6 Days Furosemide 20 Mg Tablet 20 Mg PO BID 6 Days Fluconazole 100 Mg Tablet 1 Tab PO DAILY 5 Days Reported Humulin N (Nph, Human Insulin Isophane) 100 Unit/1 Ml Vial 20 Unit SQ BIDAC Trazodone Hcl 50 Mg Tablet 50 Mg PO DAILY Fish Oil 1,000 Mg Softgel ([place]-3 Fatty Acids/Fish Oil) 1 Each Capsule 1 Cap PO DAILY 30 Days Victoza 3-Perez (Liraglutide) 0.6 Mg/0.1 Ml Pen.injctr 1.2 Mg SQ DAILY Bupropion Hcl Sr (Bupropion Hcl) 100 Mg Tablet.er 100 Mg PO DAILY Xifaxan (Rifaximin) 550 Mg Tablet 1 Tab PO BID 10 Days Topiramate 100 Mg Tablet 100 Mg PO DAILY Pantoprazole Sodium (Pantoprazole Sodium) 40 Mg Tablet.dr 40 Mg PO BIDAC Midodrine Hcl 10 Mg Tablet 10 Mg PO TID Glycolax (Polyethylene Glycol 3350) 119 Gm Powder 17 Gm PO TID Take according to instructions on printed sheet Lactulose 20 Gm/30 Ml Solution 20 Gm PO TID Levothyroxine Sodium Unknown Strength Tablet 0.5 PO DAILY Metformin Hcl Unknown Strength Tablet 500 PO BIDWMEALS Allergies Allergies: Coded Allergies: lorazepam (Verified Allergy, Severe, Rash, 12/09/19) risperidone (Verified Allergy, Severe, 06/07/20) Patient's card reads "Asymptomatic reaction" ziprasidone (Verified Allergy, Severe, 06/07/20) Patient's card reads "Asymptomatic reaction" chlorpromazine (Verified Allergy, Intermediate, 06/07/20) Patient's card reads "Asymptomatic reaction" morphine (Verified Allergy, Intermediate, 06/07/20) Patient's card reads -"May have BiPolar Symptoms if taken for a ling time." ROS General: YES: Fatigue, Malaise; No: Chills, Night Sweats, Appetite, Other PSYCHOLOGICAL ROS: YES: Anxiety; No: Behavioral Disorder, Concentration difficultie, Decreased libido, Depression, Disorientation, Hallucinations, Hostility, Irritablity, Memory difficulties, Mood Swings, Obsessive thoughts, Physical abuse, Sexual abuse, Sleep disturbances, Suicidal ideation, Other Eyes: No Blurry vision, No Decreased vision, No Double vision, No Dry eyes, No Excessive tearing, No Eye Pain, No Itchy Eyes, No Loss of vision, No Photophobia, No Scotomata, No Uses contacts, No Uses glasses, No Other HEENT: No: Heacaches, Visual Changes, Hearing change, Nasal congestion, Nasal discharge, Oral lesions, Sinus pain, Sore Throat, Epistaxis, Sneezing, Snoring, Tinnitus, Vertigo, Vocal changes, Other ALLERGY AND IMMUNOLOGY: No: Hives, Insect Bite Sensitivity, Itchy/Watery Eyes, Nasal Congestion, Post Nasal Drip, Seasonal Allergies, Other Hematological and Lymphatic: No: Bleeding Problems, Blood Clots, Blood Transfusions, Brusing, Night Sweats, Pallor, Swollen Lymph Nodes, Other ENDOCRINE: No: Breast Changes, Galactorrhea, Hair Pattern Changes, Hot Flashes, Malaise/lethargy, Mood Swings, Palpitations, Polydipsia/polyuria, Skin Changes, Temperature Intolerance, Unexpected Weight Changes, Other Breast: No New/Changing Breast Lumps, No Nipple changes, No Nipple discharge, No Other Respiratory: No: Cough, Hemoptysis, Orthopnea, Pleuritic Pain, Shortness of breath, SOB with excertion, Sputum Changes, Stridor, Tachypnea, Wheezing, Other Cardiovascular: No Chest Pain, No Palpitations, No Orthopnea, No Paroxysmal Noc. Dyspnea, No Edema, No Lt Headedness, No Other Gastrointestinal: No Nausea, No Vomiting, No Abdominal Pain, No Diarrhea, No Constipation, No Melena, No Hematochezia, No Other Genitourinary: No Dysuria, No Frequency, No Incontinence, No Hematuria, No Retention, No Discharge, No Urgency, No Pain, No Flank Pain, No Other, No , No , No , No , No , No , No Musculoskeletal: Yes Gait Disturbance, Yes Joint Pain; No Joint Stiffness, No Joint Swelling, No Muscle Pain, No Muscular Weakness, No Pain In:, No Swelling In:, No Other Neurological: No Behavorial Changes, No Bowel/Bladder ControlChng, No Confusion, No Dizziness, No Gait Disturbance, No Headaches, No Impaired Coord/balance, No Memory Loss, No Numbness/Tingling, No Seizures, No Speech Problems, No Tremors, No Visual Changes, No Weakness, No Other Skin: Yes Rash, Yes Skin Lesion Changes Physical Exam General: Alert, Cooperative, moderate distress HEENT: Atraumatic, PERRLA, EOMI, Mucous membr. moist/pink Lungs: Clear to auscultation, Normal air movement Heart: S1S2, RRR, no thrills, no rubs, no gallops, no murmurs Abdomen: Normal bowel sounds, Soft, No tenderness, No hepatosplenomegaly, No masses Extremities: No clubbing, No cyanosis, No edema, Normal pulses, No tenderness/swelling Skin: Other (4x6cm fluctuant lesion postero-medial right knee, able to express 10cc purulent fluid) Neuro: Normal gait, Normal speech, Strength at 5/5 X4 ext, Normal tone, Sensation intact, Cranial nerves 3-12 NL, Reflexes 2+ Psych/Mental Status: Other (confused) Vitals Vitals Vital Signs Date Time Temp Pulse Resp B/P (MAP) Pulse Ox O2 Delivery O2 Flow Rate FiO2 06/12/21 04:34 20 Room Air 06/12/21 03:22 98.0 87 120/52 (74) 93 98.0 Labs Labs Laboratory Tests Test 06/11/21 21:35 06/11/21 22:10 06/12/21 01:20 06/12/21 07:12 White Blood Count 4.3 x10^3/uL (4.0-11.0) Red Blood Count 4.46 x10^6/uL (3.50-5.40) Hemoglobin 13.8 g/dL (12.0-15.5) Hematocrit 41.5 % (36.0-47.0) Mean Corpuscular Volume 93 fL (79-100) Mean Corpuscular Hemoglobin 31 pg (25-35) Mean Corpuscular Hemoglobin Concent 33 g/dL (31-37) Red Cell Distribution Width 15.3 % (11.5-14.5) Platelet Count 62 x10^3/uL (140-400) Neutrophils (%) (Auto) 76 % (31-73) Lymphocytes (%) (Auto) 12 % (24-48) Monocytes (%) (Auto) 8 % (0-9) Eosinophils (%) (Auto) 3 % (0-3) Basophils (%) (Auto) 0 % (0-3) Neutrophils # (Auto) 3.3 x10^3/uL (1.8-7.7) Lymphocytes # (Auto) 0.5 x10^3/uL (1.0-4.8) Monocytes # (Auto) 0.3 x10^3/uL (0.0-1.1) Eosinophils # (Auto) 0.1 x10^3/uL (0.0-0.7) Basophils # (Auto) 0.0 x10^3/uL (0.0-0.2) Sodium Level 125 mmol/L (136-145) Potassium Level 4.7 mmol/L (3.5-5.1) Chloride Level 89 mmol/L (98-107) Carbon Dioxide Level 29 mmol/L (21-32) Anion Gap 7 (6-14) Blood Urea Nitrogen 14 mg/dL (7-20) Creatinine 1.7 mg/dL (0.6-1.0) Estimated GFR (Cockcroft-Gault) 30.6 BUN/Creatinine Ratio 8 (6-20) Glucose Level 920 mg/dL (70-99) Lactic Acid Level 4.9 mmol/L (0.4-2.0) 2.7 mmol/L (0.4-2.0) Calcium Level 8.6 mg/dL (8.5-10.1) Total Bilirubin 2.2 mg/dL (0.2-1.0) Aspartate Amino Transf (AST/SGOT) 31 U/L (15-37) Alanine Aminotransferase (ALT/SGPT) 22 U/L (14-59) Alkaline Phosphatase 137 U/L (46-116) Total Protein 6.5 g/dL (6.4-8.2) Albumin 2.3 g/dL (3.4-5.0) Albumin/Globulin Ratio 0.5 (1.0-1.7) Urine Collection Type Unknown Urine Color Yellow Urine Clarity Cloudy Urine pH 7.0 (<5.0-8.0) Urine Specific [place] 1.020 (1.000-1.030) Urine Protein Negative mg/dL (NEG-TRACE) Urine Glucose (UA) >=1000 mg/dL (NEG) Urine Ketones (Stick) Negative mg/dL (NEG) Urine Blood Trace (NEG) Urine Nitrite Negative (NEG) Urine Bilirubin Negative (NEG) Urine Urobilinogen Dipstick 0.2 mg/dL (0.2 mg/dL) Urine Leukocyte Esterase Negative (NEG) Urine RBC Occ /HPF (0-2) Urine WBC Occ /HPF (0-4) Urine Squamous Epithelial Cells Few /LPF Urine Bacteria 0 /HPF (0-FEW) Urine Mucus Slight /LPF Urine Yeast Present /HPF Glucose (Fingerstick) 438 mg/dL (70-99) Laboratory Tests Test 06/11/21 21:35 06/11/21 22:10 06/12/21 01:20 06/12/21 07:12 White Blood Count 4.3 x10^3/uL (4.0-11.0) Red Blood Count 4.46 x10^6/uL (3.50-5.40) Hemoglobin 13.8 g/dL (12.0-15.5) Hematocrit 41.5 % (36.0-47.0) Mean Corpuscular Volume 93 fL (79-100) Mean Corpuscular Hemoglobin 31 pg (25-35) Mean Corpuscular Hemoglobin Concent 33 g/dL (31-37) Red Cell Distribution Width 15.3 % (11.5-14.5) Platelet Count 62 x10^3/uL (140-400) Neutrophils (%) (Auto) 76 % (31-73) Lymphocytes (%) (Auto) 12 % (24-48) Monocytes (%) (Auto) 8 % (0-9) Eosinophils (%) (Auto) 3 % (0-3) Basophils (%) (Auto) 0 % (0-3) Neutrophils # (Auto) 3.3 x10^3/uL (1.8-7.7) Lymphocytes # (Auto) 0.5 x10^3/uL (1.0-4.8) Monocytes # (Auto) 0.3 x10^3/uL (0.0-1.1) Eosinophils # (Auto) 0.1 x10^3/uL (0.0-0.7) Basophils # (Auto) 0.0 x10^3/uL (0.0-0.2) Sodium Level 125 mmol/L (136-145) Potassium Level 4.7 mmol/L (3.5-5.1) Chloride Level 89 mmol/L (98-107) Carbon Dioxide Level 29 mmol/L (21-32) Anion Gap 7 (6-14) Blood Urea Nitrogen 14 mg/dL (7-20) Creatinine 1.7 mg/dL (0.6-1.0) Estimated GFR (Cockcroft-Gault) 30.6 BUN/Creatinine Ratio 8 (6-20) Glucose Level 920 mg/dL (70-99) Lactic Acid Level 4.9 mmol/L (0.4-2.0) 2.7 mmol/L (0.4-2.0) Calcium Level 8.6 mg/dL (8.5-10.1) Total Bilirubin 2.2 mg/dL (0.2-1.0) Aspartate Amino Transf (AST/SGOT) 31 U/L (15-37) Alanine Aminotransferase (ALT/SGPT) 22 U/L (14-59) Alkaline Phosphatase 137 U/L (46-116) Total Protein 6.5 g/dL (6.4-8.2) Albumin 2.3 g/dL (3.4-5.0) Albumin/Globulin Ratio 0.5 (1.0-1.7) Urine Collection Type Unknown Urine Color Yellow Urine Clarity Cloudy Urine pH 7.0 (<5.0-8.0) Urine Specific [place] 1.020 (1.000-1.030) Urine Protein Negative mg/dL (NEG-TRACE) Urine Glucose (UA) >=1000 mg/dL (NEG) Urine Ketones (Stick) Negative mg/dL (NEG) Urine Blood Trace (NEG) Urine Nitrite Negative (NEG) Urine Bilirubin Negative (NEG) Urine Urobilinogen Dipstick 0.2 mg/dL (0.2 mg/dL) Urine Leukocyte Esterase Negative (NEG) Urine RBC Occ /HPF (0-2) Urine WBC Occ /HPF (0-4) Urine Squamous Epithelial Cells Few /LPF Urine Bacteria 0 /HPF (0-FEW) Urine Mucus Slight /LPF Urine Yeast Present /HPF Glucose (Fingerstick) 438 mg/dL (70-99) VTE Prophylaxis Ordered VTE Prophylaxis Devices: No VTE Pharmacological Prophylaxi: Yes Assessment/Plan Assessment/Plan A/P: Cellulitis and abscess of right posterior knee - no clear joint involvement. On empiric vancomycin and Zosyn. Wound culture collected bedside with expression of 10 cc of purulent fluid. Leave wound open. ID consulted Diabetes with HHNK/Hyperglycemia - insulin therapy. Hold metformin for KAROLINA. 20u lantus BID, sliding scale + 6u TID with meals Lactic acidosis - due to KAROLINA - vasomotor nephropathy due to HHNK Severe protein calorie malnutrition -likely secondary to cirrhosis, will consult dietitian Thrombocytopenia - noted previously, her anemia and thrombocytopenia can be explained with her cirrhosis MACDONALD -with cirrhosis status post TIPS, apparently TIPS is occluded Bipolar disease -we will consult psychiatry for medication recommendations. Hypothyroidism -continue levothyroxine Morbid obesity -counseled on weight loss techniques FEN - ADA diet PPX - heparin FULL CODE Dispo - inpatient Justifications for Admission Other Justification MERARI CARDOSO MD Jun 12, 2021 08:10
[2021-06-12 11:00] VITALS: BP 125/52
[2021-06-12] MEDS: OMEGA-3 FATTY ACIDS/FISH OIL 1,000 MG CAPSULE. PO SCH (11:15)
[2021-06-12] MEDS: rifAXIMin 550 MG TABLET PO SCH ×2 (11:15→21:22)
[2021-06-12] MEDS: buPROPion SR 100 MG TABLET.SA. PO SCH (11:16)
[2021-06-12] MEDS: PANTOPRAZOLE 40 MG TABLET.DR. PO SCH ×2 (11:16→16:30)
[2021-06-12] MEDS: LINEZOLID 600 MG TABLET PO SCH ×2 (11:16→21:22)
[2021-06-12] MEDS: traMADol 50 MG TABLET PO PRN (11:16)
[2021-06-12] MEDS: CEFEPIME HCL IV Push 1 GM VIAL. IVP SCH ×2 (11:18→21:26)
[2021-06-12] MEDS: INSULIN GLARGINE SYRINGE. SQ SCH ×2 (11:25→21:39)
[2021-06-12 13:39] LABS: BASO % 1 % (0-3); EOS # 0.2 x10^3/uL (0.0-0.7); EOS % 8 % (0-3); HEMATOCRIT 33.5 % (36.0-47.0); HEMOGLOBIN 11.5 g/dL (12.0-15.5); LYMPH # 0.7 x10^3/uL (1.0-4.8); LYMPH % 20 % (24-48); MEAN CORPUSCULAR HEMOGLOBIN 31 pg (25-35); MEAN CORPUSCULAR HGB CONC 34 g/dL (31-37); MEAN CORPUSCULAR VOLUME 90 fL (79-100); MONO # 0.3 x10^3/uL (0.0-1.1); MONO % 9 % (0-9); NEUT % 63 % (31-73); PLATELET COUNT 50 x10^3/uL (140-400); RED BLOOD COUNT 3.73 x10^6/uL (3.50-5.40); WHITE BLOOD COUNT 3.3 x10^3/uL (4.0-11.0)
[2021-06-12] MEDS: LACTULOSE 20 GM/30 ML SOLUTION. PO SCH ×2 (13:42→21:24)
[2021-06-12 13:51] LABS: PROTHROMBIN TIME PATIENT 15.1 SEC (11.7-14.0)
[2021-06-12] MEDS: HEPARIN for SUB-Q USE 5,000 UNIT/ML VIAL. SQ SCH ×2 (13:51→21:39)
[2021-06-12 14:04] LABS: C-REACTIVE PROTEIN 44.8 mg/L (0-3.3); CREATININE 1.3 mg/dL (0.6-1.0); GFR 41.6; POTASSIUM 3.8 mmol/L (3.5-5.1)
[2021-06-12] MEDS ORDERED: IV NORMAL SALINE 500ML BAG 500 ML IV ONE (14:30)
[2021-06-12] MEDS ORDERED: INSULIN LISPRO 300 UNITS/3 ML VIAL. SQ ONE ×2 (14:30→18:00)
[2021-06-12 19:30] VITALS: BP 127/50
[2021-06-12] MEDS ORDERED: IV NORMAL SALINE 1000ML BAG 1,000 ML IV ONE (19:30)
[2021-06-12] MEDS: LACTOBACILLUS RHAMNOSUS GG 1 CAPSULE. PO SCH (21:22)
--- NOTE | 2021-06-12 21:32 | CONS ---
DATE OF CONSULTATION: 06/12/2021 REQUESTING PHYSICIAN: Dr. Sun. REASON FOR CONSULTATION: Right leg cellulitis. HISTORY OF PRESENT ILLNESS: This is a 61-year-old female with multiple medical problems, who came in with a 1-week history of right side of the medial leg, around at the knee level, the patient started having some redness and pain and progressively gotten worse. The patient did have a fever at home, she says eventually she came in. In fact, before my visit, Dr. Sun was able to express some purulence and he took the culture. The patient is on vancomycin and cefepime and received a dose of clindamycin. The patient denies any nausea, vomiting, diarrhea. Denies any chest pain, shortness of breath, abdominal pain, urinary symptoms or bowel symptoms. Denies any trauma. She does not know whether she may have had a bug bite, she did not see any spider or insect. PAST MEDICAL HISTORY: Positive for diabetes mellitus, hypothyroidism, bipolar disorder, MACDONALD with status post TIPS done, anemia. SOCIAL HISTORY: Negative for smoking. No alcohol use or drug use. ALLERGIES: SHE IS LISTED ALLERGIC TO MORPHINE, RISPERIDONE, LORAZEPAM AND CHLORPROMAZINE. REVIEW OF SYSTEMS: As in HPI. All other systems reviewed are negative. CURRENT MEDICATIONS: Reviewed. PHYSICAL EXAMINATION: GENERAL: Awake female, not in distress. VITAL SIGNS: Temperature 98.1, pulse 87, respirations 20, blood pressure 120/52. HEENT: Pupils are round and reacting. No conjunctival lesion, no lesion in the mouth. NECK: Supple, no JVP, no lymphadenopathy. LUNGS: Clear. HEART: S1, S2 regular. ABDOMEN: Soft, nontender, no organomegaly. EXTREMITIES: Left lower extremity is unremarkable. Right lower extremity does have erythema and a soft bulky area into the medial knee with some drainage. It is indurated and tender. NEUROLOGIC: The patient is alert, awake, and appropriate. No focal neurologic deficit. LABORATORY DATA: White count is 4.3, it actually went down to 3.3, platelets are 50,000. BUN and creatinine is 14 and 1.3, glucose is 528. Lactic acid 2.1, it actually was 4.9 and her sugar was 920. COVID is negative. IMPRESSION: 1. Right lower extremity skin and soft tissue infection with small early abscess. 2. Low-grade fever. 3. 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 4. Bipolar disorder. 5. Diabetes. 6. Hypothyroidism. PLAN: Recommend discontinuing vancomycin and start Zyvox, start cefepime, supportive care and we will wait for the cultures and continue to follow. Discussion with nurse as well as discussed with Dr. Sun. Thank you very much, Dr. Sun, for giving me opportunity to participate in this patient's care. FELIPE DR: Collins TID: [id number]
[2021-06-12] MEDS ORDERED: VANCOMYCIN 1.75 GM in IV NORMAL SALINE 500ML BAG 500 ML IV SCH (23:00)
[2021-06-12 23:10] VITALS: BP 129/41
[2021-06-13] MEDS: fentaNYL PF VIAL 100 MCG/2 ML VIAL IVP PRN ×5 (01:24→21:52)
[2021-06-13 03:15] VITALS: BP 121/50
[2021-06-13] MEDS: IV NORMAL SALINE 1000ML BAG 1,000 ML IV SCH (06:09)
[2021-06-13] MEDS: HEPARIN for SUB-Q USE 5,000 UNIT/ML VIAL. SQ SCH ×3 (06:12→20:56)
[2021-06-13 07:15] VITALS: BP 142/62
[2021-06-13] MEDS: LINEZOLID 600 MG TABLET PO SCH ×2 (08:13→20:51)
[2021-06-13] MEDS: rifAXIMin 550 MG TABLET PO SCH ×2 (08:13→20:51)
[2021-06-13] MEDS: LACTOBACILLUS RHAMNOSUS GG 1 CAPSULE. PO SCH ×2 (08:13→20:51)
[2021-06-13] MEDS: traMADol 50 MG TABLET PO PRN ×3 (08:13→20:51)
[2021-06-13] MEDS: buPROPion SR 100 MG TABLET.SA. PO SCH (08:13)
[2021-06-13] MEDS: CEFEPIME HCL IV Push 1 GM VIAL. IVP SCH ×3 (08:14→21:06)
[2021-06-13] MEDS: LACTULOSE 20 GM/30 ML SOLUTION. PO SCH ×3 (08:14→21:03)
[2021-06-13] MEDS: PANTOPRAZOLE 40 MG TABLET.DR. PO SCH ×2 (08:14→17:12)
[2021-06-13] MEDS: OMEGA-3 FATTY ACIDS/FISH OIL 1,000 MG CAPSULE. PO SCH (08:14)
--- NOTE | 2021-06-13 08:18 | PDOC ---
Infectious Disease Note Subjective Subjective Patient is feeling okay ROS ROS No nausea vomiting diarrhea chest pain shortness of breath or fever Vital Sign Vital Signs Vital Signs Date Time Temp Pulse Resp B/P (MAP) Pulse Ox O2 Delivery O2 Flow Rate FiO2 06/13/21 07:15 98.1 88 20 142/62 (88) 95 Room Air 98.1 Physical Exam PHYSICAL EXAM GENERAL: Awake female, not in distress. VITAL SIGNS: Stable HEENT: Pupils are round and reacting. No conjunctival lesion, no lesion in the mouth. NECK: Supple, no JVP, no lymphadenopathy. LUNGS: Clear. HEART: S1, S2 regular. ABDOMEN: Soft, nontender, no organomegaly. EXTREMITIES: Left lower extremity is unremarkable. Right lower extremity does have erythema and a soft bulky area into the medial knee with some drainage. It is indurated and tender. NEUROLOGIC: The patient is alert, awake, and appropriate. No focal neurologic deficit. Labs Lab Laboratory Tests Test 06/12/21 09:38 06/12/21 12:26 06/12/21 13:25 06/12/21 14:09 SARS-CoV-2 RNA (MILAN) Negative (Negative) SARS-CoV-2 Antigen (Rapid) Negative (NEGATIVE) Glucose (Fingerstick) 443 mg/dL (70-99) 499 mg/dL (70-99) White Blood Count 3.3 x10^3/uL (4.0-11.0) Red Blood Count 3.73 x10^6/uL (3.50-5.40) Hemoglobin 11.5 g/dL (12.0-15.5) Hematocrit 33.5 % (36.0-47.0) Mean Corpuscular Volume 90 fL (79-100) Mean Corpuscular Hemoglobin 31 pg (25-35) Mean Corpuscular Hemoglobin Concent 34 g/dL (31-37) Red Cell Distribution Width 15.0 % (11.5-14.5) Platelet Count 50 x10^3/uL (140-400) Neutrophils (%) (Auto) 63 % (31-73) Lymphocytes (%) (Auto) 20 % (24-48) Monocytes (%) (Auto) 9 % (0-9) Eosinophils (%) (Auto) 8 % (0-3) Basophils (%) (Auto) 1 % (0-3) Neutrophils # (Auto) 2.0 x10^3/uL (1.8-7.7) Lymphocytes # (Auto) 0.7 x10^3/uL (1.0-4.8) Monocytes # (Auto) 0.3 x10^3/uL (0.0-1.1) Eosinophils # (Auto) 0.2 x10^3/uL (0.0-0.7) Basophils # (Auto) 0.0 x10^3/uL (0.0-0.2) Prothrombin Time 15.1 SEC (11.7-14.0) Prothromb Time International Ratio 1.2 (0.8-1.1) Sodium Level 133 mmol/L (136-145) Potassium Level 3.8 mmol/L (3.5-5.1) Chloride Level 99 mmol/L (98-107) Carbon Dioxide Level 26 mmol/L (21-32) Anion Gap 8 (6-14) Blood Urea Nitrogen 14 mg/dL (7-20) Creatinine 1.3 mg/dL (0.6-1.0) Estimated GFR (Cockcroft-Gault) 41.6 Glucose Level 528 mg/dL (70-99) Lactic Acid Level 2.1 mmol/L (0.4-2.0) Calcium Level 8.0 mg/dL (8.5-10.1) C-Reactive Protein, Quantitative 44.8 mg/L (0-3.3) Test 06/12/21 15:13 06/12/21 17:00 06/12/21 17:09 06/12/21 20:52 Glucose (Fingerstick) 397 mg/dL (70-99) 379 mg/dL (70-99) 344 mg/dL (70-99) Lactic Acid Level 2.8 mmol/L (0.4-2.0) Test 06/13/21 07:12 Glucose (Fingerstick) 265 mg/dL (70-99) Micro Microbiology 06/11/21 Blood Culture - Preliminary, Resulted NO GROWTH AFTER 1 DAY Objective Assessment IMPRESSION: 1. Right lower extremity skin and soft tissue infection with small early abscess. 2. Low-grade fever. 3. 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 4. Bipolar disorder. 5. Diabetes. 6. Hypothyroidism. Plan Plan of Care Culture so far negative. Continue antibiotics. NARGIS EUCEDA MD Jun 13, 2021 08:18
[2021-06-13] MEDS: INSULIN LISPRO 300 UNITS/3 ML VIAL. SQ SCH ×6 (08:21→17:20)
[2021-06-13] MEDS: INSULIN GLARGINE SYRINGE. SQ SCH ×2 (10:50→20:55)
[2021-06-13 11:01] VITALS: BP 120/49
[2021-06-13 11:30] LABS: CREATININE 1.2 mg/dL (0.6-1.0); GFR 45.7
--- NOTE | 2021-06-13 14:07 | PDOC ---
[facility] [facility] PROGRESS NOTE Date of Service DOS: DATE: 06/13/21 TIME: 13:52 Chief Complaint Chief Complaint Cellulitis and abscess of the right posterior knee. Diabetes with HHNK/Hyperglycemia. Lactic Acidosis. KAROLINA. Severe protein calorie malnutrition. Thrombocytopenia. MACDONALD. Bipolar disease. Hypothyroidism. Morbid obesity. History of Present Illness History of Present Illness 06/13: Ms. Ashraf was seen and evaluated today in her room. We discussed her current disposition with her nurse and reviewed her chart. She continues to receive Zyvox, Cefepime and supportive care for her right knee wound. We are currently awaiting the results of her wound cultures and will await inuput from Infectious Disease. On cardiac exam, she exhibited a 3/6 mumur of the left sternocostal border. She also reports a long history of [place] Palsy. Vitals/I&O Vitals/I&O: Vital Signs Date Time Temp Pulse Resp B/P (MAP) Pulse Ox O2 Delivery O2 Flow Rate FiO2 06/13/21 12:12 Room Air 06/13/21 11:01 98.0 88 20 120/49 (72) 94 98.0 I & O 06/12/21 06/12/21 06/13/21 15:00 23:00 07:00 Intake Total 480 ml 1740 ml 480 ml Balance 480 ml 1740 ml 480 ml Physical Exam Physical Exam: GENERAL: Awake female, not in distress. VITAL SIGNS: Stable HEENT: Pupils are round and reacting. No conjunctival lesion, no lesion in the mouth. NECK: Supple, no JVP, no lymphadenopathy. LUNGS: Clear. HEART: S1, S2 regular. ABDOMEN: Soft, nontender, no organomegaly. EXTREMITIES: Left lower extremity is unremarkable. Right lower extremity does have erythema and a soft bulky area into the medial knee with some drainage. It is indurated and tender. NEUROLOGIC: The patient is alert, awake, and appropriate. No focal neurologic deficit. General: Alert, Oriented X3, Cooperative, No acute distress Heart: Regular rate Lungs: Clear Abdomen: Normal bowel sounds, Soft, No tenderness, No hepatosplenomegaly, No masses Extremities: No clubbing, No cyanosis, No edema, Normal pulses, No tenderness/swelling Skin: No rashes, No breakdown, Other (4x6cm fluctuant lesion postero-medial ri ght knee, able to express 10cc purulent fluid) Labs Labs: Laboratory Tests Test 06/12/21 14:09 06/12/21 15:13 06/12/21 17:00 06/12/21 17:09 Glucose (Fingerstick) 499 mg/dL (70-99) 397 mg/dL (70-99) 379 mg/dL (70-99) Lactic Acid Level 2.8 mmol/L (0.4-2.0) Test 06/12/21 20:52 06/13/21 07:12 06/13/21 11:10 06/13/21 11:28 Glucose (Fingerstick) 344 mg/dL (70-99) 265 mg/dL (70-99) 338 mg/dL (70-99) Creatinine 1.2 mg/dL (0.6-1.0) Estimated GFR (Cockcroft-Gault) 45.7 Review of Systems Review of Systems: No Blood in Urine No Headache Assessment and Plan Assessmemt and Plan Problems Medical Problems: (1) Cellular atypia due to antineoplastic agent Status: Acute (2) Cellulitis Status: Acute (3) Diabetes Status: Acute (4) Hyperglycemia Status: Acute (5) Insect bite of right lower extremity Status: Acute (6) Lactic acidosis Status: Acute Assessment: 1. Cellulitis and abscess of the right posterior knee. 2. Diabetes with HHNK/Hyperglycemia. 3. Lactic Acidosis. 4. KAROLINA. 5. Severe protein calorie malnutrition. 6. Thrombocytopenia. 7. MACDONALD. 8. Bipolar disease. 9. Hypothyroidism. 10. Morbid obesity. Plan: 1. Continue Wound Care. 2. Continue Antibiotics (Zyvox and Cefepime). 3. Full Code 4. FEN - ADA Diet 5. Discharge when ok with Infectious Disease. Comment Review of Relevant I have reviewed the following items tano (where applicable) has been applied. Medications: Current Medications Medications (Trade) Dose Ordered Sig/Boyd Route PRN Reason Start Time Stop Time Status Last Admin Dose Admin Heparin Sodium (Porcine) (Heparin Sodium) 5,000 unit Q8HRS SQ 06/12/21 14:00 06/13/21 06:12 Lactulose (Lactulose) 20 gm TID PO 06/12/21 14:00 06/13/21 08:14 Insulin Human Lispro (HumaLOG) 8 units 1X ONCE SQ 06/12/21 14:30 06/12/21 14:31 DC 9/5/21 14:31 Sodium Chloride 500 ml @ 500 mls/hr 1X ONCE IV 06/12/21 14:30 06/12/21 15:29 DC 06/12/21 14:28 Lactobacillus Rhamnosus (Culturelle) 1 cap BID PO 06/12/21 21:00 06/13/21 08:13 Fentanyl Citrate (Fentanyl 2ml Vial) 50 mcg PRN Q3HRS PRN IVP PAIN 06/12/21 15:30 06/13/21 11:36 Insulin Human Lispro (HumaLOG) 3 units 1X ONCE SQ 06/12/21 18:00 06/12/21 18:01 DC 06/12/21 17:58 Sodium Chloride 1,000 ml @ 1,000 mls/hr 1X ONCE IV 06/12/21 19:30 06/12/21 20:29 DC 06/12/21 19:35 Sodium Chloride 1,000 ml @ 100 mls/hr Q10H IV 06/12/21 21:00 06/13/21 16:59 06/13/21 06:09 Justifications for Admission Other Justification MARKUS HASSAN III DO Jun 13, 2021 14:07
[2021-06-13 14:54] VITALS: BP 132/59
[2021-06-13 19:20] VITALS: BP 118/50
[2021-06-13] MEDS ORDERED: NYST100054 PO (20:18)
[2021-06-13] MEDS: traZODone 50 MG TABLET. PO SCH (20:51)
[2021-06-13] MEDS ORDERED: NYSTATIN 100,000 UNITS/ML 5 ML ORAL.SUSP. PO SCH (21:00)
[2021-06-13] MEDS ORDERED: INSULIN LISPRO 300 UNITS/3 ML VIAL. SQ ONE (21:00)
[2021-06-13 22:52] VITALS: BP 109/46
[2021-06-14] MEDS: fentaNYL PF VIAL 100 MCG/2 ML VIAL IVP PRN ×5 (02:43→21:23)
[2021-06-14 03:13] VITALS: BP 119/53
[2021-06-14 06:09] LABS: CREATININE 1.2 mg/dL (0.6-1.0); GFR 45.7
[2021-06-14] MEDS: HEPARIN for SUB-Q USE 5,000 UNIT/ML VIAL. SQ SCH ×3 (06:17→21:28)
[2021-06-14] MEDS: traMADol 50 MG TABLET PO PRN ×2 (06:53→21:23)
[2021-06-14 07:15] VITALS: BP 131/56
[2021-06-14] MEDS: rifAXIMin 550 MG TABLET PO SCH ×2 (08:45→21:22)
[2021-06-14] MEDS: OMEGA-3 FATTY ACIDS/FISH OIL 1,000 MG CAPSULE. PO SCH (08:45)
[2021-06-14] MEDS: LACTULOSE 20 GM/30 ML SOLUTION. PO SCH ×3 (08:45→21:23)
[2021-06-14] MEDS: LACTOBACILLUS RHAMNOSUS GG 1 CAPSULE. PO SCH ×2 (08:45→21:22)
[2021-06-14] MEDS: LINEZOLID 600 MG TABLET PO SCH ×2 (08:45→21:22)
[2021-06-14] MEDS: buPROPion SR 100 MG TABLET.SA. PO SCH (08:45)
[2021-06-14] MEDS: PANTOPRAZOLE 40 MG TABLET.DR. PO SCH ×2 (08:45→17:30)
[2021-06-14] MEDS: CEFEPIME HCL IV Push 1 GM VIAL. IVP SCH (08:46)
[2021-06-14] MEDS: INSULIN LISPRO 300 UNITS/3 ML VIAL. SQ SCH ×6 (08:47→17:35)
--- NOTE | 2021-06-14 09:11 | PDOC ---
Infectious Disease Note Subjective Subjective Patient is feeling okay ROS ROS No nausea vomiting diarrhea Vital Sign Vital Signs Vital Signs Date Time Temp Pulse Resp B/P (MAP) Pulse Ox O2 Delivery O2 Flow Rate FiO2 06/14/21 08:46 Room Air 06/14/21 07:15 98.1 82 20 131/56 (81) 95 98.1 Physical Exam PHYSICAL EXAM GENERAL: Awake female, not in distress. VITAL SIGNS: Stable HEENT: Pupils are round and reacting. No conjunctival lesion, no lesion in the mouth. NECK: Supple, no JVP, no lymphadenopathy. LUNGS: Clear. HEART: S1, S2 regular. ABDOMEN: Soft, nontender, no organomegaly. EXTREMITIES: Left lower extremity is unremarkable. Right lower extremity does have erythema and a soft bulky area into the medial knee with some drainage. It is indurated and tender. NEUROLOGIC: The patient is alert, awake, and appropriate. No focal neurologic deficit. Labs Lab Laboratory Tests Test 06/13/21 11:10 06/13/21 11:28 06/13/21 17:14 06/13/21 20:33 Creatinine 1.2 mg/dL (0.6-1.0) Estimated GFR (Cockcroft-Gault) 45.7 Glucose (Fingerstick) 338 mg/dL (70-99) 336 mg/dL (70-99) 386 mg/dL (70-99) Test 06/14/21 04:55 06/14/21 07:24 Creatinine 1.2 mg/dL (0.6-1.0) Estimated GFR (Cockcroft-Gault) 45.7 Glucose (Fingerstick) 186 mg/dL (70-99) Micro GRAM STAIN Final Final GRAM POS COCCI CLUSTERS:FEW RBC:FEW SQUAMOUS EPI CELL:NONE SEEN PMN (WBCs):MODERATE Unless otherwise specified, Testing Performed by: [address] [address] For Inquires, the Physician may contact the Microbiology department at [phone] AEROBIC CULTURE PENDING Objective Assessment IMPRESSION: 1. Right lower extremity skin and soft tissue infection with small early abscess. 2. Low-grade fever. 3. 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 4. Bipolar disorder. 5. Diabetes. 6. Hypothyroidism. Plan Plan of Care Culture so far negative. Continue antibiotics. Surgery consult for possible I&D NARGIS EUCEDA MD Jun 14, 2021 09:10
[2021-06-14] MEDS: INSULIN GLARGINE SYRINGE. SQ SCH ×2 (09:32→21:28)
[2021-06-14 10:40] VITALS: BP 110/45
--- NOTE | 2021-06-14 13:05 | PDOC2 ---
CONSULT Date of Consult Date of Consult DATE: 06/14/21 TIME: 13:02 Reason for Consult Reason for Consult: Cellulitis right lower extremity possible abscess Referring Physician Referring Physician: Zulema Identification/Chief Complaint Chief Complaint Right lower extremity pain Source Source: Chart review, Patient History of Present Illness Reason for Visit: 61-year-old female with multiple medical problems previous TIPS procedure for liver disease. Recent complaint of a bite on her right lower extremity which became more painful and more red most recently has opened and drained she states the pain is less today than it has been Past Medical History GI: GERD, Other (cirrhosis) Hepatobiliary: Other Psych: Bipolar Endocrine: Diabetes, Hypothyroidism Past Surgical History Past Surgical History: Other Family History Family History: High Cholestrol, Hypertension Social History No ALCOHOL: none Drugs: None Current Problem List Problem List Problems Medical Problems: (1) Cellular atypia due to antineoplastic agent Status: Acute (2) Cellulitis Status: Acute (3) Diabetes Status: Acute (4) Hyperglycemia Status: Acute (5) Insect bite of right lower extremity Status: Acute (6) Lactic acidosis Status: Acute Current Medications Current Medications Current Medications Ibuprofen (Motrin) 800 mg 1X ONCE PO Last administered on 06/11/21at 21:56; Start 06/11/21 at 20:45; Stop 06/11/21 at 20:46; Status DC Neomycin/ Polymyxin/ Bacitracin (Triple Antibiotic Ointment) 1 pkt 1X ONCE TP Last administered on 06/11/21at 21:57; Start 06/11/21 at 21:30; Stop 06/11/21 at 21:31; Status DC Clindamycin HCl (Cleocin) 300 mg 1X ONCE PO Last administered on 06/11/21at 21:57; Start 06/11/21 at 21:30; Stop 06/11/21 at 21:31; Status DC Diphtheria/ Tetanus/Acell Pertussis (ADACEL TDap SYRINGE) 0.5 ml ONCE ONCE VAX IM Last administered on 06/11/21at 21:58; Start 06/11/21 at 21:30; Stop 06/11/21 at 21:31; Status DC Sodium Chloride 1,000 ml @ 100 mls/hr Q10H IV Last administered on 06/11/21at 21:56; Start 06/11/21 at 21:30; Stop 06/12/21 at 07:29; Status DC Insulin Human Isoph/Insulin Regular (HumuLIN 70-30 VIAL) 20 units 1X ONCE SQ Last administered on 06/11/21at 22:32; Start 06/11/21 at 22:15; Stop 06/11/21 at 22:16; Status DC Vancomycin HCl (Vanco Per Pharmacy) 1 each PRN DAILY PRN MC SEE COMMENTS Last administered on 06/12/21at 03:43; Start 06/11/21 at 22:45; Stop 06/12/21 at 09:30; Status DC Vancomycin HCl 1.75 gm/Sodium Chloride 500 ml @ 250 mls/hr 1X ONCE IV Last administered on 06/11/21at 23:13; Start 06/11/21 at 23:00; Stop 06/12/21 at 00:59; Status DC Sodium Chloride 1,000 ml @ 100 mls/hr 1X ONCE IV Last administered on 06/11/21at 23:14; Start 06/11/21 at 23:00; Stop 06/12/21 at 08:59; Status DC Fentanyl Citrate (Fentanyl 2ml Vial) 50 mcg PRN Q2HR PRN IVP PAIN Last administered on 06/12/21at 13:47; Start 06/11/21 at 23:00; Stop 06/12/21 at 15:22; Status DC Sodium Chloride 1,000 ml @ 125 mls/hr Q8H IV Last administered on 06/12/21at 15:00; Start 06/11/21 at 23:00; Stop 06/12/21 at 19:18; Status DC Acetaminophen (Tylenol) 650 mg PRN Q4HRS PRN PO FEVER > 100.3'F; Start 06/11/21 at 23:00; Stop 06/12/21 at 08:11; Status DC Insulin Human Lispro (HumaLOG) 0-9 UNITS TIDWMEALS SQ Last administered on 06/14/21at 12:18; Start 06/12/21 at 08:00 Dextrose (Dextrose 50%-Water Syringe) 12.5 gm PRN Q15MIN PRN IV SEE COMMENTS; Start 06/11/21 at 23:00 Fentanyl Citrate (Fentanyl 2ml Vial) 100 mcg STK-MED ONCE .ROUTE ; Start 06/11/21 at 23:07; Stop 06/11/21 at 23:07; Status DC Vancomycin HCl 1.75 gm/Sodium Chloride 500 ml @ 250 mls/hr Q24H IV ; Start 06/12/21 at 23:00; Stop 06/12/21 at 09:30; Status DC Vancomycin HCl (Vancomycin Trough Level) 1 each 1X ONCE MC ; Start 06/13/21 at 22:30; Stop 06/12/21 at 09:30; Status DC Acetaminophen (Tylenol) 650 mg PRN Q6HRS PRN PO FEVER > 100.3'F; Start 06/12/21 at 07:45 Ondansetron HCl (Zofran) 4 mg PRN Q4HRS PRN IVP NAUSEA/VOMITING; Start 06/12/21 at 07:30 Olanzapine (ZyPREXA ZYDIS) 5 mg PRN BID PRN PO ANXIETY / AGITATION; Start 06/12/21 at 07:30 Heparin Sodium (Porcine) (Heparin Sodium) 5,000 unit Q8HRS SQ Last administered on 06/14/21at 06:17; Start 06/12/21 at 14:00 Tramadol HCl (Ultram) 50 mg PRN Q6HRS PRN PO PAIN Last administered on 06/14/21at 06:53; Start 06/12/21 at 07:30 Bupropion HCl (Wellbutrin Sr) 100 mg DAILY PO Last administered on 06/14/21at 08:45; Start 06/12/21 at 10:00 Lactulose (Lactulose) 20 gm TID PO Last administered on 06/14/21at 08:45; Start 06/12/21 at 14:00 Fish Oil (Fish Oil) 1,000 mg DAILY PO Last administered on 06/14/21at 08:45; Start 06/12/21 at 10:00 Pantoprazole Sodium (Protonix) 40 mg BIDAC PO Last administered on 06/14/21at 08:45; Start 06/12/21 at 10:00 Rifaximin (Xifaxan) 550 mg BID PO Last administered on 06/14/21at 08:45; Start 06/12/21 at 10:00 Trazodone HCl (Desyrel) 50 mg QHS PO Last administered on 06/13/21at 20:51; Start 06/13/21 at 21:00 Insulin Glargine (Lantus Syringe) 20 unit BID SQ Last administered on 06/14/21at 09:32; Start 06/12/21 at 10:00 Linezolid (Zyvox) 600 mg BID PO Last administered on 06/14/21at 08:45; Start 06/12/21 at 10:00 Cefepime HCl (Maxipime) 1 gm Q12HR IVP Last administered on 06/14/21at 08:46; Start 06/12/21 at 10:00; Stop 06/14/21 at 10:35; Status DC Insulin Human Lispro (HumaLOG) 7 units TIDWMEALS SQ Last administered on 06/14/21at 12:19; Start 06/12/21 at 12:45 Insulin Human Lispro (HumaLOG) 8 units 1X ONCE SQ Last administered on 06/12/21at 14:31; Start 06/12/21 at 14:30; Stop 06/12/21 at 14:31; Status DC Sodium Chloride 500 ml @ 500 mls/hr 1X ONCE IV Last administered on 06/12/21at 14:28; Start 06/12/21 at 14:30; Stop 06/12/21 at 15:29; Status DC Lactobacillus Rhamnosus (Culturelle) 1 cap BID PO Last administered on 06/14/21at 08:45; Start 06/12/21 at 21:00 Fentanyl Citrate (Fentanyl 2ml Vial) 50 mcg PRN Q3HRS PRN IVP PAIN Last administered on 06/14/21at 12:16; Start 06/12/21 at 15:30 Insulin Human Lispro (HumaLOG) 3 units 1X ONCE SQ Last administered on 06/12/21at 17:58; Start 06/12/21 at 18:00; Stop 06/12/21 at 18:01; Status DC Sodium Chloride 1,000 ml @ 1,000 mls/hr 1X ONCE IV Last administered on 06/12/21at 19:35; Start 06/12/21 at 19:30; Stop 06/12/21 at 20:29; Status DC Sodium Chloride 1,000 ml @ 100 mls/hr Q10H IV Last administered on 06/13/21at 06:09; Start 06/12/21 at 21:00; Stop 06/13/21 at 16:59; Status DC Nystatin (Nystatin Oral Susp) 5 ml QID PO ; Start 06/13/21 at 21:00; Status Cancel Insulin Human Lispro (HumaLOG) 12 units 1X ONCE SQ Last administered on 06/13/21at 21:19; Start 06/13/21 at 21:00; Stop 06/13/21 at 21:04; Status DC Active Scripts Active Potassium Chloride (Potassium Chloride) 20 Meq Tablet.er 20 Meq PO BID 6 Days Furosemide 20 Mg Tablet 20 Mg PO BID 6 Days Fluconazole 100 Mg Tablet 1 Tab PO DAILY 5 Days Reported Nystatin 100,000 Unit/1 Ml Oral.susp 5 Ml PO QID Humulin N (Nph, Human Insulin Isophane) 100 Unit/1 Ml Vial 20 Unit SQ BIDAC Trazodone Hcl 50 Mg Tablet 50 Mg PO DAILY Fish Oil 1,000 Mg Softgel ([place]-3 Fatty Acids/Fish Oil) 1 Each Capsule 1 Cap PO DAILY 30 Days Victoza 3-Perez (Liraglutide) 0.6 Mg/0.1 Ml Pen.injctr 1.2 Mg SQ DAILY Bupropion Hcl Sr (Bupropion Hcl) 100 Mg Tablet.er 100 Mg PO DAILY Xifaxan (Rifaximin) 550 Mg Tablet 1 Tab PO BID 10 Days Topiramate 100 Mg Tablet 100 Mg PO DAILY Pantoprazole Sodium (Pantoprazole Sodium) 40 Mg Tablet.dr 40 Mg PO BIDAC Midodrine Hcl 10 Mg Tablet 10 Mg PO TID Glycolax (Polyethylene Glycol 3350) 119 Gm Powder 17 Gm PO TID Take according to instructions on printed sheet Lactulose 20 Gm/30 Ml Solution 20 Gm PO TID Levothyroxine Sodium Unknown Strength Tablet 0.5 PO DAILY Metformin Hcl Unknown Strength Tablet 500 PO BIDWMEALS Allergies Allergies: Coded Allergies: lorazepam (Verified Allergy, Severe, Rash, 12/09/19) risperidone (Verified Allergy, Severe, 06/07/20) Patient's card reads "Asymptomatic reaction" ziprasidone (Verified Allergy, Severe, 06/07/20) Patient's card reads "Asymptomatic reaction" chlorpromazine (Verified Allergy, Intermediate, 06/07/20) Patient's card reads "Asymptomatic reaction" morphine (Verified Allergy, Intermediate, 06/07/20) Patient's card reads -"May have BiPolar Symptoms if taken for a ling time." ROS Neurological: Yes Other (Right lower extremity pain) Physical Exam General: Alert, Oriented X3, Cooperative, mild distress HEENT: Atraumatic, EOMI Lungs: Clear to auscultation, Normal air movement Heart: Regular rate, No murmurs Abdomen: Normal bowel sounds, Soft, No tenderness Extremities: Other (Right lower extremity erythema medial aspect upper thigh half a centimeter open wound with bloody purulent drainage decreased area of erythema by June 11 marking) Neuro: Normal speech Psych/Mental Status: Mental status NL Vitals VITALS Vital Signs Date Time Temp Pulse Resp B/P (MAP) Pulse Ox O2 Delivery O2 Flow Rate FiO2 06/14/21 12:16 Room Air 06/14/21 10:40 98.4 81 20 110/45 (66) 96 98.4 Labs Labs Laboratory Tests Test 06/12/21 13:25 06/12/21 14:09 06/12/21 15:13 06/12/21 17:00 White Blood Count 3.3 x10^3/uL (4.0-11.0) Red Blood Count 3.73 x10^6/uL (3.50-5.40) Hemoglobin 11.5 g/dL (12.0-15.5) Hematocrit 33.5 % (36.0-47.0) Mean Corpuscular Volume 90 fL (79-100) Mean Corpuscular Hemoglobin 31 pg (25-35) Mean Corpuscular Hemoglobin Concent 34 g/dL (31-37) Red Cell Distribution Width 15.0 % (11.5-14.5) Platelet Count 50 x10^3/uL (140-400) Neutrophils (%) (Auto) 63 % (31-73) Lymphocytes (%) (Auto) 20 % (24-48) Monocytes (%) (Auto) 9 % (0-9) Eosinophils (%) (Auto) 8 % (0-3) Basophils (%) (Auto) 1 % (0-3) Neutrophils # (Auto) 2.0 x10^3/uL (1.8-7.7) Lymphocytes # (Auto) 0.7 x10^3/uL (1.0-4.8) Monocytes # (Auto) 0.3 x10^3/uL (0.0-1.1) Eosinophils # (Auto) 0.2 x10^3/uL (0.0-0.7) Basophils # (Auto) 0.0 x10^3/uL (0.0-0.2) Prothrombin Time 15.1 SEC (11.7-14.0) Prothromb Time International Ratio 1.2 (0.8-1.1) Sodium Level 133 mmol/L (136-145) Potassium Level 3.8 mmol/L (3.5-5.1) Chloride Level 99 mmol/L (98-107) Carbon Dioxide Level 26 mmol/L (21-32) Anion Gap 8 (6-14) Blood Urea Nitrogen 14 mg/dL (7-20) Creatinine 1.3 mg/dL (0.6-1.0) Estimated GFR (Cockcroft-Gault) 41.6 Glucose Level 528 mg/dL (70-99) Lactic Acid Level 2.1 mmol/L (0.4-2.0) 2.8 mmol/L (0.4-2.0) Calcium Level 8.0 mg/dL (8.5-10.1) C-Reactive Protein, Quantitative 44.8 mg/L (0-3.3) Glucose (Fingerstick) 499 mg/dL (70-99) 397 mg/dL (70-99) Test 06/12/21 17:09 06/12/21 20:52 06/13/21 07:12 06/13/21 11:10 Glucose (Fingerstick) 379 mg/dL (70-99) 344 mg/dL (70-99) 265 mg/dL (70-99) Creatinine 1.2 mg/dL (0.6-1.0) Estimated GFR (Cockcroft-Gault) 45.7 Test 06/13/21 11:28 06/13/21 17:14 06/13/21 20:33 06/14/21 04:55 Glucose (Fingerstick) 338 mg/dL (70-99) 336 mg/dL (70-99) 386 mg/dL (70-99) Creatinine 1.2 mg/dL (0.6-1.0) Estimated GFR (Cockcroft-Gault) 45.7 Test 06/14/21 07:24 06/14/21 11:38 Glucose (Fingerstick) 186 mg/dL (70-99) 264 mg/dL (70-99) Laboratory Tests Test 06/13/21 17:14 06/13/21 20:33 06/14/21 04:55 06/14/21 07:24 Glucose (Fingerstick) 336 mg/dL (70-99) 386 mg/dL (70-99) 186 mg/dL (70-99) Creatinine 1.2 mg/dL (0.6-1.0) Estimated GFR (Cockcroft-Gault) 45.7 Test 06/14/21 11:38 Glucose (Fingerstick) 264 mg/dL (70-99) Assessment/Plan Assessment/Plan Right lower extremity abscess which has opened and drained spontaneously decreased erythema Continue medical management IV antibiotics, warm compress to area topical Bactroban Will follow potentially may need incision and drainage RAJ ROBERSON MD Jun 14, 2021 13:05
--- NOTE | 2021-06-14 13:32 | PDOC ---
[employer] PROGRESS NOTE Date of Service DOS: DATE: 06/14/21 TIME: 13:25 Chief Complaint Chief Complaint Cellulitis and abscess of the right posterior knee. Lactic Acidosis. Diabetes with HHNK/Hyperglycemia. KAROLINA. Severe protein calorie malnutrition. Thrombocytopenia. MACDONALD. Bipolar disease. Hypothyroidism. Morbid obesity. History of Present Illness History of Present Illness 06/13: Ms. Ashraf was seen and evaluated today in her room. We discussed her current disposition with her nurse and reviewed her chart. She continues to receive Zyvox, Cefepime and supportive care for her right knee wound. We are currently awaiting the results of her wound cultures and will await inuput from Infectious Disease. On cardiac exam, she exhibited a 3/6 mumur of the left sternocostal border. She also reports a long history of [place] Palsy. 06/14: Ms. Ashraf was examined and evaluated in her room this morning. We discussed her current disposition with her nurse and reviewed her chart. She continues to receive Zyvox, Cefepime and supportive care for her right knee wound. She has been evaluated by infectious disease. Today, she complained of right leg swelling and mentioned she had a history of DVT's. We will order a Duplex Lower Ex Arterial Rt. to further investigate. Vitals/I&O Vitals/I&O: Vital Signs Date Time Temp Pulse Resp B/P (MAP) Pulse Ox O2 Delivery O2 Flow Rate FiO2 06/14/21 12:16 Room Air 06/14/21 10:40 98.4 81 20 110/45 (66) 96 98.4 I & O 06/13/21 06/13/21 06/14/21 15:00 23:00 07:00 Intake Total 240 ml 360 ml 400 ml Balance 240 ml 360 ml 400 ml Physical Exam Physical Exam: GENERAL: Awake female, not in distress. VITAL SIGNS: Stable HEENT: Pupils are round and reacting. No conjunctival lesion, no lesion in the mouth. NECK: Supple, no JVP, no lymphadenopathy. LUNGS: Clear. HEART: S1, S2 regular. ABDOMEN: Soft, nontender, no organomegaly. EXTREMITIES: Left lower extremity is unremarkable. Right lower extremity does have erythema and a soft bulky area into the medial knee with some drainage. It is indurated and tender. NEUROLOGIC: The patient is alert, awake, and appropriate. No focal neurologic deficit. General: Alert, Oriented X3, Cooperative Heart: Regular rate, No murmurs Lungs: Clear Abdomen: Normal bowel sounds, Soft Extremities: No clubbing, No cyanosis, Other (Right lower extremity erythema medial aspect upper thigh half a centimeter open wound with bloody purulent drainage decreased area of erythema by June 11 marking) Skin: No rashes, No breakdown, Other (4x6cm fluctuant lesion postero-medial right knee, able to express 10cc purulent fluid) Labs Labs: Laboratory Tests Test 06/13/21 17:14 06/13/21 20:33 06/14/21 04:55 06/14/21 07:24 Glucose (Fingerstick) 336 mg/dL (70-99) 386 mg/dL (70-99) 186 mg/dL (70-99) Creatinine 1.2 mg/dL (0.6-1.0) Estimated GFR (Cockcroft-Gault) 45.7 Test 06/14/21 11:38 Glucose (Fingerstick) 264 mg/dL (70-99) Review of Systems Review of Systems: No headache. No vomiting. Assessment and Plan Assessmemt and Plan Problems Medical Problems: (1) Cellular atypia due to antineoplastic agent Status: Acute (2) Cellulitis Status: Acute (3) Diabetes Status: Acute (4) Hyperglycemia Status: Acute (5) Insect bite of right lower extremity Status: Acute (6) Lactic acidosis Status: Acute Assessment: 1. Cellulitis and abscess of the right posterior knee. 2. Lactic Acidosis. 3. Diabetes with HHNK/Hyperglycemia. 4. KAROLINA. 5. Severe protein calorie malnutrition. 6. Thrombocytopenia. 7. MACDONALD. 8. Bipolar disease. 9. Hypothyroidism. 10. Morbid obesity. Plan: 1. Duplex Lower Ex Arterial Rt. 2. Continue Home Medications 3. Continue DVT Prophylaxis (Heparin Sodium) 4. Full Code 5. Await surgery input. Comment Review of Relevant I have reviewed the following items tano (where applicable) has been applied. Medications: Current Medications Medications (Trade) Dose Ordered Sig/Boyd Route PRN Reason Start Time Stop Time Status Last Admin Dose Admin Trazodone HCl (Desyrel) 50 mg QHS PO 06/13/21 21:00 06/13/21 20:51 Insulin Human Lispro (HumaLOG) 12 units 1X ONCE SQ 06/13/21 21:00 06/13/21 21:04 DC 06/13/21 21:19 Justifications for Admission Other Justification MARKUS HASSAN III DO Jun 14, 2021 13:32
[2021-06-14] MEDS: MUPIROCIN 2 % NASAL OINTMENT 22GM TUBE. NS SCH ×2 (14:12→21:23)
--- NOTE | 2021-06-14 14:14 | RAD ---
EXAMINATION: US DPLX VENOUS EXTREMITY LOWER RT (LOWER EXTREMITY VENOUS ULTRASOUND) CLINICAL HISTORY: Right leg swelling and previous history of DVTs. TECHNIQUE: Sonographic grayscale images obtained of the right lower extremity deep venous system with color flow Doppler, compression, and augmentation techniques as indicated. Images obtained and stor ed in a permanent archive. COMPARISON: None FINDINGS: No evidence of absent flow or incompressibility within the common femoral vein, femoral vein, or popl iteal vein. Visualized calf veins appear patent on limited evaluation. IMPRESSION: No evidence of right lower extremity DVT. Electronically signed by: Rober Law DO (06/14/2021 2:11 PM) DONNIE
[2021-06-14 15:03] VITALS: BP 125/62
--- NOTE | 2021-06-14 18:14 | NUR ---
Wound/Ostomy Care Wound Type/Assessment: Patient seen per wound care consult. See wound assesment. Patient has possible insect bite to right medial knee. Wound cleansed and assessed. Wound remains swollen, with redness to gabriela-wound which as subsided according to black marking traced around the initial redness, there is some blackened and purple areas to the wound. Patient stated it remains very tender but has been tolerable. Patient stated she was seen by Dr. Cool whom stated she did not need surgery and he ordered Bactroban daily for the wound. Treatment Recommendations/Plan: Bactroban ointment applied as ordered, then covered with gauze pads and wrapped with kerlix. Change daily. Education provided: patient educated on dressing changes, PU prevention, and POC. Offloading surface/device: N/A Recommended Referrals/Tests: Patient may follow up in the wound clinic if she would like too, patient has been a patient at the wound clinic previously. Discharge Recommendations for dressings: No other wounds noted. Call light in reach. Wound care will follow up with patient on 06/21/21.
[2021-06-14 19:35] VITALS: BP 138/77
[2021-06-14] MEDS: traZODone 50 MG TABLET. PO SCH (21:22)
[2021-06-14 23:18] VITALS: BP 102/57
[2021-06-15] MEDS: fentaNYL PF VIAL 100 MCG/2 ML VIAL IVP PRN ×3 (02:29→13:46)
[2021-06-15] MEDS: traMADol 50 MG TABLET PO PRN ×3 (03:26→13:47)
[2021-06-15 03:46] VITALS: BP 105/48
[2021-06-15] MEDS: HEPARIN for SUB-Q USE 5,000 UNIT/ML VIAL. SQ SCH (06:05)
[2021-06-15 07:17] LABS: HEMOGLOBIN 11.3 g/dL (12.0-15.5); RED BLOOD COUNT 3.67 x10^6/uL (3.50-5.40); RED CELL DISTRIBUTION WIDTH 15.7 % (11.5-14.5); WHITE BLOOD COUNT 2.6 x10^3/uL (4.0-11.0)
[2021-06-15 07:18] VITALS: BP 143/62
[2021-06-15] MEDS: LINEZOLID 600 MG TABLET PO SCH (07:53)
[2021-06-15] MEDS: rifAXIMin 550 MG TABLET PO SCH (07:53)
[2021-06-15] MEDS: OMEGA-3 FATTY ACIDS/FISH OIL 1,000 MG CAPSULE. PO SCH (07:53)
[2021-06-15] MEDS: LACTOBACILLUS RHAMNOSUS GG 1 CAPSULE. PO SCH (07:54)
[2021-06-15] MEDS: PANTOPRAZOLE 40 MG TABLET.DR. PO SCH (07:54)
[2021-06-15] MEDS: buPROPion SR 100 MG TABLET.SA. PO SCH (07:55)
[2021-06-15] MEDS: LACTULOSE 20 GM/30 ML SOLUTION. PO SCH ×2 (07:56→13:47)
--- NOTE | 2021-06-15 08:00 | PDOC ---
Infectious Disease Note Subjective Subjective Patient is feeling okay ROS ROS No nausea vomiting diarrhea Vital Sign Vital Signs Vital Signs Date Time Temp Pulse Resp B/P (MAP) Pulse Ox O2 Delivery O2 Flow Rate FiO2 06/15/21 07:18 97.8 91 20 143/62 (89) 97 Room Air 97.8 Physical Exam PHYSICAL EXAM GENERAL: Awake female, not in distress. VITAL SIGNS: Stable HEENT: Pupils are round and reacting. No conjunctival lesion, no lesion in the mouth. NECK: Supple, no JVP, no lymphadenopathy. LUNGS: Clear. HEART: S1, S2 regular. ABDOMEN: Soft, nontender, no organomegaly. EXTREMITIES: Left lower extremity is unremarkable. Right lower extremity does have erythema and a soft bulky area into the medial knee with some drainage. It is indurated and tender. NEUROLOGIC: The patient is alert, awake, and appropriate. No focal neurologic deficit. Labs Lab Laboratory Tests Test 06/14/21 11:38 06/14/21 16:39 06/14/21 21:02 06/15/21 03:34 Glucose (Fingerstick) 264 mg/dL (70-99) 333 mg/dL (70-99) 313 mg/dL (70-99) 241 mg/dL (70-99) Test 06/15/21 06:55 06/15/21 06:57 White Blood Count 2.6 x10^3/uL (4.0-11.0) Red Blood Count 3.67 x10^6/uL (3.50-5.40) Hemoglobin 11.3 g/dL (12.0-15.5) Hematocrit 33.0 % (36.0-47.0) Mean Corpuscular Volume 90 fL (79-100) Mean Corpuscular Hemoglobin 31 pg (25-35) Mean Corpuscular Hemoglobin Concent 34 g/dL (31-37) Red Cell Distribution Width 15.7 % (11.5-14.5) Platelet Count 44 x10^3/uL (140-400) Glucose (Fingerstick) 214 mg/dL (70-99) Micro GRAM STAIN Final Final GRAM POS COCCI CLUSTERS:FEW RBC:FEW SQUAMOUS EPI CELL:NONE SEEN PMN (WBCs):MODERATE Unless otherwise specified, Testing Performed by: [address] [address] For Inquires, the Physician may contact the Microbiology department at [phone] AEROBIC CULTURE Final Final MODERATE [STAPHYLOCOCCUS AUREUS] on 06/14/21 at 0951 Testing Performed by: [address] [address] For Inquires, the Physician may contact the Microbiology department at [phone] STAPHYLOCOCCUS AUREUS ANTIMICROBIAL SUSCEPTIBILITY Final Comment POS LUKE TYPE 38 STAPHYLOCOCCUS AUREUS ANTIBIOTIC RESULT INTERPRETATION AZITHROMYCIN >4 R CLINDAMYCIN <=0.25 R* CEFOXITIN SCREEN <=4 NEG CIPROFLOXACIN <=1 S CEFTAROLINE <=0.5 S DAPTOMYCIN <=0.5 S ERYTHROMYCIN >4 R GENTAMICIN <=4 S INDUCIBLE CLINDAMYCIN >4/0.5 POS - RUN DATE: 06/15/21 [facility] *LIVE* PAGE 2 RUN TIME: 0845 Specimen Inquiry SPEC: [id number] PATIENT: JOO BOYER [id number] (Continued) Procedure Result CONTINUED ON NEXT PAGE RUN DATE: 06/15/21 [facility] *LIVE* PAGE 3 RUN TIME: 0845 Specimen Inquiry -- SPEC: [id number] PATIENT: JOO BOYER [id number] (Continued) Procedure Result ANTIMICROBIAL SUSCEPTIBILITY Final (continued) LINEZOLID 2 S LEVOFLOXACIN <=1 S OXACILLIN <=0.25 S PENICILLIN <=0.03 German RIFAMPIN >2 R TRIMETHOPRIM/SULFAMETHOXAZOLE <=0.5/9.5 S TETRACYCLINE <=4 S VANCOMYCIN 1 S Unless otherwise specified, Testing Performed by: [address] [address] For Inquires, the Physician may contact the Microbiology department at [phone] Objective Assessment IMPRESSION: 1. Right lower extremity skin and soft tissue infection with small early abscess. MSSA 2. Low-grade fever. 3. 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 4. Bipolar disorder. 5. Diabetes. 6. Hypothyroidism. Plan Plan of Care Change Zyvox to p.o. Keflex Surgery input appreciated NARGIS EUCEDA MD Jun 15, 2021 08:00
[2021-06-15] MEDS: INSULIN GLARGINE SYRINGE. SQ SCH (08:49)
[2021-06-15] MEDS: INSULIN LISPRO 300 UNITS/3 ML VIAL. SQ SCH ×4 (08:50→12:43)
--- NOTE | 2021-06-15 09:20 | PDOC ---
[employer] PROGRESS NOTE Date of Service DOS: DATE: 06/15/21 TIME: 09:13 Chief Complaint Chief Complaint Cellulitis and Abscess of the Right Posterior Knee. Lactic Acidosis. Diabetes with HHNK/Hyperglycemia. Severe Protein Malnutrition. KAROLINA. Thrombocytopenia. MACDONALD. Bipolar Disease. Hypothyroidism. Morbid Obesity. History of Present Illness History of Present Illness 06/13: Ms. Ashraf was seen and evaluated today in her room. We discussed her current disposition with her nurse and reviewed her chart. She continues to receive Zyvox, Cefepime and supportive care for her right knee wound. We are currently awaiting the results of her wound cultures and will await inuput from Infectious Disease. On cardiac exam, she exhibited a 3/6 mumur of the left sternocostal border. 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 06/14: Ms. Ashraf was examined and evaluated in her room this morning. We discussed her current disposition with her nurse and reviewed her chart. She continues to receive Zyvox, Cefepime and supportive care for her right knee wound. She has been evaluated by infectious disease. Today, she complained of right leg swelling and mentioned she had a history of DVT's. We will order a Duplex Lower Ex Arterial Rt. to further investigate. 06/15: Ms. Ashraf was evaluated and seen in her room at [facility] this morning. She was awake and alert. Ultrasound of her right lower extremity returned no evidence of concern for DVT. I am pleased with this result. Her wound on the posterior lateral aspect of her right knee was clean, dry and intact. We will continue to have her followed by surgery. Plan to discharge when ok with consultants. Vitals/I&O Vitals/I&O: Vital Signs Date Time Temp Pulse Resp B/P (MAP) Pulse Ox O2 Delivery O2 Flow Rate FiO2 06/15/21 08:00 Room Air 06/15/21 07:18 97.8 91 20 143/62 (89) 97 97.8 I & O 06/14/21 06/14/21 06/15/21 15:00 23:00 07:00 Intake Total 600 ml 240 ml 480 ml Balance 600 ml 240 ml 480 ml Physical Exam Physical Exam: GENERAL: Awake female, not in distress. VITAL SIGNS: Stable HEENT: Pupils are round and reacting. No conjunctival lesion, no lesion in the mouth. NECK: Supple, no JVP, no lymphadenopathy. LUNGS: Clear. HEART: S1, S2 regular. ABDOMEN: Soft, nontender, no organomegaly. EXTREMITIES: Left lower extremity is unremarkable. Right lower extremity does have erythema and a soft bulky area into the medial knee with some drainage. It is indurated and tender. NEUROLOGIC: The patient is alert, awake, and appropriate. No focal neurologic deficit. General: Alert, Oriented X3, Cooperative Heart: Regular rate, No murmurs Lungs: Clear Abdomen: Normal bowel sounds, Soft Extremities: No clubbing, Other (Right lower extremity erythema medial aspect upper thigh half a centimeter open wound with bloody purulent drainage decreased area of erythema by June 11 marking) Skin: No rashes, Other (4x6cm fluctuant lesion postero-medial right knee, able to express 10cc purulent fluid) Labs Labs: Laboratory Tests Test 06/14/21 11:38 06/14/21 16:39 06/14/21 21:02 06/15/21 03:34 Glucose (Fingerstick) 264 mg/dL (70-99) 333 mg/dL (70-99) 313 mg/dL (70-99) 241 mg/dL (70-99) Test 06/15/21 06:55 06/15/21 06:57 White Blood Count 2.6 x10^3/uL (4.0-11.0) Red Blood Count 3.67 x10^6/uL (3.50-5.40) Hemoglobin 11.3 g/dL (12.0-15.5) Hematocrit 33.0 % (36.0-47.0) Mean Corpuscular Volume 90 fL (79-100) Mean Corpuscular Hemoglobin 31 pg (25-35) Mean Corpuscular Hemoglobin Concent 34 g/dL (31-37) Red Cell Distribution Width 15.7 % (11.5-14.5) Platelet Count 44 x10^3/uL (140-400) Glucose (Fingerstick) 214 mg/dL (70-99) Review of Systems Review of Systems: No fever No vomiting No blood in urine Assessment and Plan Assessmemt and Plan Problems Medical Problems: (1) Cellular atypia due to antineoplastic agent Status: Acute (2) Cellulitis Status: Acute (3) Diabetes Status: Acute (4) Hyperglycemia Status: Acute (5) Insect bite of right lower extremity Status: Acute (6) Lactic acidosis Status: Acute Assessment: 1. Cellulitis and Abscess of the Right Posterior Knee. 2. Lactic Acidosis. 3. Diabetes with HHNK/Hyperglycemia. 4. Severe Protein Malnutrition. 5. KAROLINA. 6. Thrombocytopenia. 7. MACDONALD. 8. Bipolar Disease. 9. Hypothyroidism. 10. Morbid Obesity. Plan: 1. Continue Home Medications 2. Continue DVT Prophylaxis (Heparin) 3. Full Code 4. PT/OT 5. Discharge/Disposition pending consultants. Comment Review of Relevant I have reviewed the following items tano (where applicable) has been applied. Medications: Current Medications Medications (Trade) Dose Ordered Sig/Boyd Route PRN Reason Start Time Stop Time Status Last Admin Dose Admin Mupirocin (Bactroban) 1 juan BID NS 06/14/21 14:00 06/14/21 14:12 Justifications for Admission Other Justification MARKUS HASSAN III DO Jun 15, 2021 09:20
[2021-06-15] MEDS: MUPIROCIN 2 % NASAL OINTMENT 22GM TUBE. NS SCH (10:37)
[2021-06-15] MEDS: CEPHALEXIN 250 MG CAPSULE. PO SCH ×2 (10:37→13:47)
[2021-06-15 11:00] VITALS: BP 117/50
--- NOTE | 2021-06-15 12:12 | PDOC ---
SURGICAL PROGRESS NOTE DATE: 06/15/21 TIME: 12:11 Subjective Patient states she is doing better Vital Signs Vital Signs Date Time Temp Pulse Resp B/P (MAP) Pulse Ox O2 Delivery O2 Flow Rate FiO2 06/15/21 11:00 97.7 97 18 117/50 (72) 96 Room Air 97.7 I&O Intake and Output 06/15/21 07:00 Intake Total 1320 ml Balance 1320 ml Intake Oral 1320 ml # Voids 5 PATIENT HAS A WILLIS: No General: Alert, Oriented X3, Cooperative, No acute distress Skin: Other (Wound with drainage less erythema overall improving) Labs Laboratory Tests Test 06/13/21 17:14 06/13/21 20:33 06/14/21 04:55 06/14/21 07:24 Glucose (Fingerstick) 336 mg/dL (70-99) 386 mg/dL (70-99) 186 mg/dL (70-99) Creatinine 1.2 mg/dL (0.6-1.0) Estimated GFR (Cockcroft-Gault) 45.7 Test 06/14/21 11:38 06/14/21 16:39 06/14/21 21:02 06/15/21 03:34 Glucose (Fingerstick) 264 mg/dL (70-99) 333 mg/dL (70-99) 313 mg/dL (70-99) 241 mg/dL (70-99) Test 06/15/21 06:55 06/15/21 06:57 06/15/21 11:37 White Blood Count 2.6 x10^3/uL (4.0-11.0) Red Blood Count 3.67 x10^6/uL (3.50-5.40) Hemoglobin 11.3 g/dL (12.0-15.5) Hematocrit 33.0 % (36.0-47.0) Mean Corpuscular Volume 90 fL (79-100) Mean Corpuscular Hemoglobin 31 pg (25-35) Mean Corpuscular Hemoglobin Concent 34 g/dL (31-37) Red Cell Distribution Width 15.7 % (11.5-14.5) Platelet Count 44 x10^3/uL (140-400) Glucose (Fingerstick) 214 mg/dL (70-99) 272 mg/dL (70-99) Laboratory Tests Test 06/14/21 16:39 06/14/21 21:02 06/15/21 03:34 06/15/21 06:55 Glucose (Fingerstick) 333 mg/dL (70-99) 313 mg/dL (70-99) 241 mg/dL (70-99) White Blood Count 2.6 x10^3/uL (4.0-11.0) Red Blood Count 3.67 x10^6/uL (3.50-5.40) Hemoglobin 11.3 g/dL (12.0-15.5) Hematocrit 33.0 % (36.0-47.0) Mean Corpuscular Volume 90 fL (79-100) Mean Corpuscular Hemoglobin 31 pg (25-35) Mean Corpuscular Hemoglobin Concent 34 g/dL (31-37) Red Cell Distribution Width 15.7 % (11.5-14.5) Platelet Count 44 x10^3/uL (140-400) Test 06/15/21 06:57 06/15/21 11:37 Glucose (Fingerstick) 214 mg/dL (70-99) 272 mg/dL (70-99) Problem List Problems Medical Problems: (1) Cellular atypia due to antineoplastic agent Status: Acute (2) Cellulitis Status: Acute (3) Diabetes Status: Acute (4) Hyperglycemia Status: Acute (5) Insect bite of right lower extremity Status: Acute (6) Lactic acidosis Status: Acute Assessment/Plan Agree with oral antibiotics and home health Justicifation of Admission Dx: Justifications for Admission: Justification of Admission Dx: Yes Cellulitis: Cellulitis RAJ ROBERSON MD Jun 15, 2021 12:12
[2021-06-15] MEDS ORDERED: TRAM50TA PO (13:15)
[2021-06-15] MEDS ORDERED: CEPH250C PO (13:15)
--- NOTE | 2021-06-15 14:19 | SNU/HH DC ---
DISCHARGE WITH HOME HEALTH DISCHARGE INFORMATION: Final Diagnosis: Problems Medical Problems: (1) Cellular atypia due to antineoplastic agent Status: Acute (2) Cellulitis Status: Acute (3) Diabetes Status: Acute (4) Hyperglycemia Status: Acute (5) Insect bite of right lower extremity Status: Acute (6) Lactic acidosis Status: Acute Condition on Discharge: Stable CODE STATUS: Code Status: Full HOME HEALTH: Face to Face: I certify this patient is under my care and that I, or a nurse practitioner or physician's ophthalmology assistant working with me, had a face to face encounter that meets the physician face to face encounter requirements with this patient on []. Medical Complications: Other (knee infection) Mcc For: Assess & Educate Safety RN For Eval/Treatment: Yes Physical Therapy For: Evalulation/Treatment Occupational Therapy For: Evaluation/Treatment Home Health Aide For: Self-care [employer]IOR [employer]ODUCTION PL[employer]NER For: Community Resources Pt Meets Homebound Status: Poor coordination w/ amb. POST DISCHARGE ORDERS: Activity Instructions for Disc: Activity as tolerated Weight Bearing Status after Di: As tolerated DIET AFTER DISCHARGE: Regular Wound/Incision Care: Ice to area for comfort, Change dressing, Reinforce dressing PRN CHECKS AFTER DISCHARGE: Checks after discharge: Check blood press - daily, Check your Temp as needed, Weigh Yourself Daily TREATMENT/EQUIPMENT ORDERS: Adaptive Equipment Issued: None CERTIFICATION STATEMENT: Certification Statement: Certification Statement: Based on the above finding, I certify that this patient is confined to the home and needs intermittent senior living care, physical therapy and/or speech therapy, or continues to need occupational therapy.~ This patient is under my care, and I have initiated the establishment of the plan of care.~ This patient will be followed by myself or a community physician who will periodically review the plan of care. Home Meds Active Scripts Tramadol Hcl (TRAMADOL HCL) 50 Mg Tablet, 50 MG PO PRN Q6HRS PRN for PAIN for 10 Days, #30 TAB Prov:CASTLE,NIAL K III DO 06/15/21 Potassium Chloride (POTASSIUM CHLORIDE ) 20 Meq Tablet.er, 20 MEQ PO BID for SUPPLEMENT for 6 Days, #12 TAB.SR Prov:MERARI CARDOSO MD 06/12/20 Furosemide (FUROSEMIDE) 20 Mg Tablet, 20 MG PO BID for Swelling for 6 Days, #12 TAB Prov:MERARI CARDOSO MD 06/12/20 Fluconazole (FLUCONAZOLE) 100 Mg Tablet, 1 TAB PO DAILY for Candidiasis for 5 Days, #5 TAB Prov:RIFFEL,MERARI Hardy MD 06/11/20 Reported Medications Nystatin (NYSTATIN) 100,000 Unit/1 Ml Oral.susp, 5 ML PO QID for oral thrush, #200 ML 06/13/21 Nph, Human Insulin Isophane (HUMULIN N) 100 Unit/1 Ml Vial, 20 UNIT SQ BIDAC for diabetes, EACH 06/12/21 Trazodone Hcl (TRAZODONE HCL) 50 Mg Tablet, 50 MG PO DAILY for depression, TAB 06/06/20 Tappen-3 Fatty Acids/Fish Oil (FISH OIL 1,000 MG SOFTGEL) 1 Each Capsule, 1 CAP PO DAILY for health for 30 Days, #30 CAP 0 Refills 06/06/20 Liraglutide (VICTOZA 3-DARWIN) 0.6 Mg/0.1 Ml Pen.injctr, 1.2 MG SQ DAILY for diabetes, #9 ML 3 Refills 06/06/20 Bupropion Hcl (BUPROPION HCL SR) 100 Mg Tablet.er, 100 MG PO DAILY for depression, TAB.SR 06/06/20 Rifaximin (XIFAXAN) 550 Mg Tablet, 1 TAB PO BID for liver for 10 Days, #20 TAB 0 Refills 06/06/20 Topiramate (TOPIRAMATE) 100 Mg Tablet, 100 MG PO DAILY for depression, TAB 06/06/20 Pantoprazole Sodium (PANTOPRAZOLE SODIUM ) 40 Mg Tablet.dr, 40 MG PO BIDAC for GERD, TAB 06/06/20 Midodrine Hcl (MIDODRINE HCL) 10 Mg Tablet, 10 MG PO TID for hypotension, TAB 06/06/20 Polyethylene Glycol 3350 (GLYCOLAX) 119 Gm Powder, 17 GM PO TID for constipation, #527 GM 0 Refills Take according to instructions on printed sheet 06/06/20 Lactulose (LACTULOSE) 20 Gm/30 Ml Solution, 20 GM PO TID for increased amonia, MISC 06/06/20 Levothyroxine Sodium (LEVOTHYROXINE SODIUM) Unknown Strength Tablet, 0.5 PO DAILY for hypothyroid, #30 TAB 5 Refills 12/10/19 Metformin Hcl (METFORMIN HCL) Unknown Strength Tablet, 500 PO BIDWMEALS for ANTI-DIABETIC, TAB 0 Refills 12/10/19 Discontinued Scripts Mupirocin (MUPIROCIN OINTMENT) 22 Gm Oint...g., 1 BRUCE TP TID for WOUND CARE, #1 EACH Prov:EMILIA BRINK 06/11/21 MARKUS HASSAN III DO Jun 15, 2021 14:19
--- NOTE | 2021-06-15 14:39 | DS ---
DATE OF DISCHARGE: 06/15/2021 ADMISSION DIAGNOSES: Right posterior knee infection and abscess. DISCHARGE DIAGNOSES: Resolving abscess, history of diabetes, malnutrition, acute kidney injury resolving, thrombocytopenia, non-alcoholic steatohepatitis syndrome, bipolar disease, hypothyroidism and obesity. CONSULTS: General Surgery and Infectious Disease. PROCEDURES: None. HOSPITAL COURSE: The patient is a pleasant, middle-aged female who presented with right posterior knee abscess and cellulitis. She was admitted. We gave her IV antibiotics. The above consults were obtained. Over the next few days, the wound continued to drain. Yesterday, she was having some swelling on the right leg. I checked her for DVTs, but that was negative. Today, I saw and examined her. She is at her baseline. We still have some infection, but she is doing better. Dr. Cool would like to let her go home with some Keflex, I agree. We are going to discharge with p.o. Keflex. DISPOSITION: Home. ACTIVITY: As tolerated. DIET: Low sodium. DISCHARGE MEDICATIONS: Keflex 500 q.i.d.; Ultram 50 q.6 hours p.r.n., 100 every day; fluconazole 100 a day, Lasix 20 a day, lactulose 20 grams t.i.d., Synthroid 0.5 a day, Victoza 1.2 mg daily, metformin 500 b.i.d., midodrine 10 t.i.d., nystatin swish and swallow 5 mL q.i.d., fish oil, Protonix 40 a day, GlycoLax, potassium 20 a day, rifaximin 550 b.i.d., topiramate 100 a day and trazodone 50 at bedtime. TOTAL TIME: [address]: NATASHA/maty TID: [id number]
[2021-06-15 14:48] VITALS: BP 135/50
--- NOTE | 2021-06-15 15:45 | NUR ---
reviewed discharge instructions. she will be followed by Home health. tramadol and Keflex sent to her pharmacy. demonstrated dressing change. saline lock removed. instructed to call her butting saw operator in 1 week for her pcp. verbalized understanding.
== END 2021-06-15 16:00 | disposition home health service (06) | DRG 602 ==
LOC: ER 19:38 → 4 NORTH 22:59
PROVIDERS: ADMIT Internal Medicine; ATTEND Internal Medicine
DX: L02.415 Cutaneous abscess of right lower limb (principal); E11.00 Type 2 diabetes mellitus with hyperosmolarity without nonketotic hyperglycemic-hyperosmolar coma (NKHHC); N17.0 Acute kidney failure with tubular necrosis; E43 Unspecified severe protein-calorie malnutrition; E87.2 Acidosis; L03.115 Cellulitis of right lower limb; Z20.822 Contact with and (suspected) exposure to COVID-19; Z68.39 Body mass index [BMI] 39.0-39.9, adult; E03.9 Hypothyroidism, unspecified; E66.01 Morbid (severe) obesity due to excess calories; F31.9 Bipolar disorder, unspecified; K74.60 Unspecified cirrhosis of liver; K75.81 Nonalcoholic steatohepatitis (NASH); K21.9 Gastro-esophageal reflux disease without esophagitis; Z82.49 Family history of ischemic heart disease and other diseases of the circulatory system; D64.9 Anemia, unspecified; D69.6 Thrombocytopenia, unspecified; E11.65 Type 2 diabetes mellitus with hyperglycemia; G51.0 Bell's palsy; Z86.718 Personal history of other venous thrombosis and embolism; D72.819 Decreased white blood cell count, unspecified; Z79.4 Long term (current) use of insulin; Z88.8 Allergy status to other drugs, medicaments and biological substances
CPT/HCPCS: 36415; 80048; 80053; 81001; 82565; 82962; 83605; 85025; 85027; 85610; 86140; 87040; 87070; 87077; 87186; 87426; 90471; 90715; 93971; 96372; J0692; J1644; J1815; J3010; J3370; J7030; J7040; U0003; U0005; 99285-25; G0378

== ENCOUNTER 2021-06-27 22:32 | Emergency (ER) | payer MEDICARE, OTHER ==
[~2021-06-27] VITALS: Ht 172.7 cm; Wt 109.0 kg
[~2021-06-27 22:32] MED LIST changes: +CEPH250C PO; +CLIN300C9 PO; +MUPI22OI2 TP; +NPH,100V SQ; +NYST100054 PO; +TRAM50TA PO
[2021-06-27] MEDS ORDERED: HYDROcodone/APAP 5/325MG 1 TAB TABLET PO ONE (23:45)
[2021-06-27 23:54] VITALS: BP 160/70
--- NOTE | 2021-06-28 00:57 | PHYS DOC ---
Past Medical History Past Medical History: Bipolar, Diabetes-Type II, Hypothyroid, Other Additional Past Medical Histor: MACDONALD; Chronic Anemia Past Surgical History: No Surgical History Additional Past Surgical Histo: TIPS Smoking Status: Never Smoker Alcohol Use: None General Adult EDM: Chief Complaint: MECHANICAL FALL HPI: HPI: Patient is a 61 year old female with a history of diabetes type 2, bipolar, hypothyroidism who presents the ED today to be evaluated after falling. Patient states she was walking at home when she fell face forward. Denies any loss of consciousness. She reports hitting her face on the ground. Denies being on any blood thinners. Denies any neck pain. Review of Systems: Review of Systems: Constitutional: Denies fever or chills. [] Eyes: Denies change in visual acuity. [] HENT: Denies nasal congestion or sore throat. [] Respiratory: Denies cough or shortness of breath. [] Cardiovascular: Denies chest pain or edema. [] GI: Denies abdominal pain, nausea, vomiting, bloody stools or diarrhea. [] : Denies dysuria. [] Musculoskeletal: Denies back pain or joint pain. [] Integument: Denies rash. [] Neurologic: Reports hitting head on the ground, denies focal weakness or sensory changes. [] Psychiatric: Denies depression or anxiety. [] Heart Score: C/O Chest Pain: N/A Risk Factors: Risk Factors: DM, Current or recent (<one month) smoker, HTN, HLP, family history of CAD, obesity. Risk Scores: Score 0 - 3: 2.5% MACE over next 6 weeks - Discharge Home Score 4 - 6: 20.3% MACE over next 6 weeks - Admit for Clinical Observation Score 7 - 10: 72.7% MACE over next 6 weeks - Early Invasive Strategies Current Medications: Current Medications Medications (Trade) Dose Ordered Sig/Boyd Start Time Stop Time Status Last Admin Dose Admin Acetaminophen/ Hydrocodone Bitart (Lortab 5/325) 1 tab 1X ONCE 06/27/21 23:45 06/27/21 23:46 DC 06/27/21 23:56 1 TAB Allergies: Allergies: Allergies Coded Allergies Type Severity Reaction Last Updated Verified lorazepam Allergy Severe Rash 12/09/19 Yes risperidone Allergy Severe 06/07/20 Yes ziprasidone Allergy Severe 06/07/20 Yes chlorpromazine Allergy Intermediate 06/07/20 Yes morphine Allergy Intermediate 06/07/20 Yes Physical Exam: PE: Constitutional: Well developed, well nourished, no acute distress, non-toxic appearance. [] HENT: Normocephalic, bilateral external ears normal, oropharynx moist, no oral exudates, nose normal. [] Eyes: Moderate periorbital ecchymosis noted on the left eye. No entrapment syndrome. PERRLA, EOMI, conjunctiva normal, no discharge. [] Neck: C-collar present. Normal range of motion, no tenderness, supple, no stridor. [] Cardiovascular:Heart rate regular rhythm, no murmur [] Lungs & Thorax: Bilateral breath sounds clear to auscultation [] Abdomen: Bowel sounds normal, soft, no tenderness, no masses, no pulsatile masses. [] Skin: Warm, dry, no erythema, no rash. [] Back: No tenderness, no CVA tenderness. [] Extremities: No tenderness, no cyanosis, no clubbing, ROM intact, no edema. [] Neurologic: Alert and oriented X 3, normal motor function, normal sensory function, no focal deficits noted. Cranial nerves II through XII intact Psychologic: Affect normal, judgement normal, mood normal. [] Current Patient Data: Vital Signs: Vital Signs Date Time Temp Pulse Resp B/P (MAP) Pulse Ox O2 Delivery O2 Flow Rate FiO2 06/27/21 23:56 18 98 Room Air 06/27/21 23:30 98.4 97 201/88 (125) 98.4 EKG: EKG: [] Radiology/Procedures: Radiology/Procedures: [] Course & Med Decision Making: Course & Med Decision Making Pertinent Labs and Imaging studies reviewed. (See chart for details) This is a 61-year-old female patient presenting to the ED today to be evaluated after falling. She has moderate periorbital ecchymosis on the left eye. No loss of consciousness when she fell. Tetanus is up-to-date. CT of the head, maxillofacial, cervical spine are negative for any acute findings, discharged home. Ice elevation encouraged. Follow-up with PCP in 1 week Marlene Disclaimer: Marlene Disclaimer: This electronic medical record was generated, in whole or in part, using a voice recognition dictation system. Departure Departure Impression: Primary Impression: Fall from standing Qualified Codes: W19.XXXA - Unspecified fall, initial encounter Additional Impressions: Traumatic periorbital ecchymosis of left eye Qualified Codes: S05.12XA - Contusion of eyeball and orbital tissues, left eye, initial encounter Closed head injury Qualified Codes: S09.90XA - Unspecified injury of head, initial encounter Cervical stenosis of spinal canal Disposition: 01 HOME / SELF CARE / HOMELESS Condition: STABLE Referrals: NO PCP (PCP) Follow-up with your doctor in 1 to 2 weeks Patient Instructions: Facial or Scalp Contusion, Head Injury, Adult, [id number] Additional Instructions: You were evaluated in the emergency room after falling, your CT of the head, face and neck are negative for any acute findings. Try to ice your left upper eyelid and elevate your head. Take the prescribed pain medicine as needed for pain. Follow-up with your doctor in 1 week Scripts Hydrocodone Bit/Acetaminophen (HYDROCODONE-APAP 5-325 ) 1 Tab Tablet 1 TAB PO PRN Q6HRS PRN for PAIN, #7 TAB 0 Refills Prov: ANKITA LEIVA APRN 06/28/21 ANKITA LEIVA APRN Jun 28, 2021 00:57
[2021-06-28] MEDS ORDERED: HYDR-2761 PO (01:29)
--- NOTE | 2021-06-28 13:59 | RAD ---
EXAM: 1. CT HEAD WITHOUT CONTRAST. 2. CT FACIAL BONES WITHOUT CONTRAST. 3. CT CERVICAL SPINE WITHOUT CONTRAST. HISTORY: Fall, head and facial trauma. TECHNIQUE: Computed tomography of the head, facial bones and cervical spine was performed without int ravenous contrast. One or more of the following individualized dose reduction techniques were utilize d for this examination: 1. Automated exposure control. 2. Adjustment of the mA and/or kV according to patient size. 3. Use of iterative reconstruction technique. COMPARISON: 12/11/2019. FINDINGS: There is no intracranial hemorrhage. Gonzalez-white differentiation is preserved. The ventricl es are normal in size and position. A calcified extra-axial mass laterally in the right frontal nicolle tory measures 7 mm and is consistent with a stable calcified meningioma. The temporal bones are unremarkable. The calvarium reveals no suspicious lesions. No facial fractures are identified. There is extensive soft tissue swelling along the left eyelids. T here is no evidence of intraorbital injury. The visualized paranasal sinuses appear clear. The orbits are unremarkable. Alignment is maintained. 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 No fractures are identified. Degenerat remington disc disease is moderate at C5-6. There is no prevertebral soft tissue swelling. At C2-3, left facet osteoarthritis is moderate. Left neural foraminal stenosis is moderate to severe. At C3-4, there is a small posterior disc bulge. Left facet osteoarthritis is moderate. Left neural fo raminal stenosis is moderate to severe. At C4-5, there is bulky ossification of the posterior longitudinal ligament measuring 7 mm in thickne ss. This results in moderate central canal stenosis. At C5-6, there is a moderate to large posterior disc-osteophyte complex with ossification of the post erior longitudinal ligament. This measures 6 mm anteroposteriorly. Central canal stenosis is moderate . Left uncovertebral osteoarthritis is moderate. Left neural foraminal stenosis is moderate to severe . At C6-7, there is a moderate posterior disc-osteophyte complex with some ossification of the posterio r longitudinal ligament. Central canal stenosis is mild. Carotid atherosclerotic calcifications are noted. IMPRESSION: 1. No acute intracranial findings. 2. Stable 7 mm right frontal calcified meningioma. 3. Extensive left eyelid swelling. No facial fractures. 4. No cervical fracture or malalignment. 5. 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 Neural foraminal stenosis is up to moderate/severe as above. MRI could furt her assess stenosis if there is persistent concern. Electronically signed by: Haile Cartagena MD (06/28/2021 1:14 AM) [facility]
== END 2021-06-28 01:55 | disposition home or self-care (01) ==
LOC: ER 22:32
DX: S05.12XA Contusion of eyeball and orbital tissues, left eye, initial encounter (principal); M48.02 Spinal stenosis, cervical region; F31.9 Bipolar disorder, unspecified; E11.9 Type 2 diabetes mellitus without complications; E03.9 Hypothyroidism, unspecified; Z88.5 Allergy status to narcotic agent; Z88.8 Allergy status to other drugs, medicaments and biological substances; W18.39XA Other fall on same level, initial encounter; Y93.01 Activity, walking, marching and hiking; Y92.098 Other place in other non-institutional residence as the place of occurrence of the external cause; Y99.8 Other external cause status
CPT/HCPCS: 70450; 70486; 72125; 99285-25